=== PATIENT | male | born 1930 | race Caucasian/White ===

== ENCOUNTER 2016-08-04 14:58 | Emergency (ER) | payer MEDICARE, BC ==
[~2016-08-04] VITALS: Ht 165.1 cm; Wt 62.0 kg
[~2016-08-04 14:58] MED LIST: ALBU8I INH; APIX5TAB PO; DONE10TA14 PO; FISHCAP PO; FLUT1INH INH; LISI20 PO; METH2.5 PO; METO25CR PO; PANT20 PO; PRED20 PO; TAB-TAB PO; Z.0.OXYGENDME NC
[2016-08-04 15:02] VITALS: BP 134/76; PULSE 83; RESP 16; TEMP 98.4; O2SAT 89
[2016-08-04] MEDS ORDERED: cefTRIAXone INJ 2,000 MG in SODIUM CHLORIDE 0.9% INJ 100 ML IV STA (17:39)
[2016-08-04] MEDS ORDERED: AZITHROMYCIN INJ 500 MG in SODIUM CHLOR 0.9% 250 ML INJ 250 ML IV STA (17:39)
--- NOTE | 2016-08-04 17:46 | PD ---
HPI Chief Complaint: Respiratory Symptoms Time Seen by Provider: 17:39 Travel History International Travel<30 days: No Contact w/Intl Traveler<30days: No Traveled to known affect area: No History of Present Illness HPI 86-year-old male with history of COPD, multiple medical issues, reviewed nurse' s list past medical history, presenting today to the ER because of one week history of coughing, coughing up phlegm, and fevers of 104 yesterday, chills, increased fatigue. 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 He has been recently treated for COPD, has been using his nebulizer without improvement. He does not know any other exacerbating or alleviating factors. Modifying Factors: None Associated Signs & Symptoms: Coughing, shortness of breath, fevers and chills Risk Factors: COPD history PFSH Past Medical History Hx Anticoagulant Therapy: Yes (ELOQUIS) Arthritis: Yes (rheumatoid arthritis) Asthma: No Autoimmune Disease: No Anxiety: No Depression: No Heart Rhythm Problems: Yes Cancer: No Cardiovascular Problems: Yes (HTN) High Cholesterol: Yes Chemotherapy: No Chest Pain: No Congestive Heart Failure: No COPD: Yes Cerebrovascular Accident: Yes (TIA'S) Coronary Artery Disease: Yes Diabetes: No Diminished Hearing: No Endocrine: No GERD: No Genitourinary: No Headaches: No Hepatitis: No Hiatal Hernia: No Hypertension: Yes Immune Disorder: Yes (RHEUMATOID ARTHRITIS) Implanted Vascular Access Dvce: Yes Kidney Stones: Yes (not stones but cyst) Musculoskeletal: Yes Neurologic: No Psychiatric: No Reproductive: No Respiratory: Yes (COPD) Migraines: No Radiation Therapy: No Renal Failure: No Seizures: No Sickle Cell Disease: No Sleep Apnea: No Thyroid Disease: No Ulcer: No Past Surgical History Abdominal Surgery: Yes (HERNIA REPAIR) AICD: No Arteriovenous Shunt: No Cardiac Surgery: Yes (coronary bypass grafting 2001) Cholecystectomy: Yes Coronary Artery Bypass Graft: Yes (X5 VESSELS 2001) Ear Surgery: No Endocrine Surgery: No Eye Surgery: Yes (cataracts resection bilaterally) Genitourinary Surgery: Yes (bladder surgery, removal of renal cyst) Gynecologic Surgery: No Insulin Pump: No Joint Replacement: Yes (BILAT HIP) Oral Surgery: No Pacemaker: No Thoracic Surgery: No Other Surgery: Yes (TWO HERNIA REPAIRS) Social History Alcohol Use: Yes (OCC BEER) Tobacco Use: No Substance Use: No Allergies-Medications (Allergen,Severity, Reaction): Coded Allergies: Codeine (Verified Allergy, Severe, RASH & GI UPSET, 08/04/16) Horse Serum Proteins (Verified Allergy, Severe, 08/04/16) swelling at injection Quinine (Verified Allergy, Severe, 08/04/16) n/v Amoxicillin (Verified Allergy, Intermediate, GI UPSET, 08/04/16) Tetanus Toxoid (Verified Allergy, Intermediate, REDNESS AT INJECTION SITE , 08/04/16) Motrin (Verified Allergy, Mild, GI BLEEDING, 08/04/16) Nonsteroidal Anti-Inflammatory Agts (Verified Adverse Reaction, Intermediate, GI BLEEDING, 08/04/16) Reported Meds & Prescriptions Reported Meds & Active Scripts Active Proventil Hfa 6.7 GM Inh (Albuterol Sulfate) 90 Mcg/Act Aer 2 Puff INH Q4-6H PRN Prednisone 50 Mg Tab 50 Mg PO DAILY Zithromax Z-Timothy (Azithromycin) 250 Mg Dspk 250 Mg PO DIRECTED 500 MG (2 tabs) day 1, then 1 tab days 2-5. Oxygen (O2) (Z.0.oxygendme) Device 2 L NC CONTINUOUS Oxygen Concentrator Portable Gaseous 2 L/min via Nasal Cannula Continuous For 99 months Deltasone 20 Mg Tab (Prednisone) 20 Mg Tab 20 Mg PO DIRECTED 1 Tablet BID for 2days, 1 Tablet Daily for 2days, 1/2 Tablet for 2days Protonix (Pantoprazole Sodium) 20 Mg Tab 20 Mg PO DAILY Metoprolol Succinate ER 25 mg (Metoprolol Succinate) 25 Mg Tab 25 Mg PO DAILY Prinivil 20 mg (Lisinopril) 20 Mg Tab 20 Mg PO Q12HR Breo Ellipta 100-25 Mcg/INH (Fluticasone Furoate-Vilanterol) 1 Inh Inh 1 Puff INH DAILY Reported Ventolin Hfa (Albuterol Sulfate) 8 Gm Aero 2 Puff INH Q6 PRN * SHAKE WELL BEFORE USE * Donepezil 10 mg 10 Mg Tab 10 Mg PO DAILY Rheumatrex (Methotrexate) 2.5 Mg Tab 10 Mg PO ON MONDAYS Rheumatrex (Methotrexate) 2.5 Mg Tab 7.5 Mg PO ON THURSDAYS Fish Oi1 360 Mg PO DAILY Multivitamin (Multivitamins) 1 Tab Tab 1 Tab PO DAILY Eliquis (Apixaban) 5 Mg Tab 5 Mg PO BID Review of Systems Except as stated in HPI: all other systems reviewed are Neg Physical Exam Narrative GENERAL: Well-nourished, well-developed elderly white male patient in mild distress. Awake and oriented 3. SKIN: Warm and dry. HEAD: Normocephalic. EYES: No scleral icterus. No injection or drainage. NECK: Supple, trachea midline. CARDIOVASCULAR: Regular rate and rhythm without murmurs, gallops, or rubs. RESPIRATORY: Breath sounds equal with wheezing throughout the lung bilaterally. Mild accessory muscle use. GASTROINTESTINAL: Abdomen soft, non-tender, nondistended. MUSCULOSKELETAL: No cyanosis, or edema. BACK: Nontender without obvious deformity. No CVA tenderness. Data Data Last Documented VS Vital Signs Date Time Temp Pulse Resp B/P Pulse Ox O2 Delivery O2 Flow Rate FiO2 08/04/16 18:19 97 Nasal Cannula 4.00 08/04/16 17:37 75 22 08/04/16 15:02 98.4 134/76 Orders Electrocardiogram (08/04/16 17:34) Basic Metabolic Panel (Bmp) (08/04/16 17:34) Complete Blood Count With Diff (08/04/16 17:34) Lactic Acid Sepsis Protocol (08/04/16 17:34) Influenzae A/B Antigen (08/04/16 17:34) Blood Culture (08/04/16 17:34) Chest, Single Ap (08/04/16 17:34) Iv Access Insert/Monitor (08/04/16 17:34) Sodium Chloride 0.9% Flush (Ns Flush) (08/04/16 17:45) Ceftriaxone Inj (Rocephin Inj) (08/04/16 17:39) Azithromycin Inj (Zithromax Inj) (08/04/16 17:39) Methylprednisolone So Succ Inj (Solumedr (08/04/16 18:15) Albuterol-Ipratropium Neb (Duoneb Neb) (08/04/16 18:15) B-Type Natriuretic Peptide (08/04/16 18:05) Albuterol-Ipratropium Neb (Duoneb Neb) (08/04/16 19:00) Labs Laboratory Tests Test 08/04/16 17:45 White Blood Count 12.0 TH/MM3 Red Blood Count 3.75 MIL/MM3 Hemoglobin 13.0 GM/DL Hematocrit 39.0 % Mean Corpuscular Volume 104.0 FL Mean Corpuscular Hemoglobin 34.6 PG Mean Corpuscular Hemoglobin 33.3 % Concent Red Cell Distribution Width 18.7 % Platelet Count 187 TH/MM3 Mean Platelet Volume 8.2 FL Neutrophils (%) (Auto) 82.7 % Lymphocytes (%) (Auto) 4.7 % Monocytes (%) (Auto) 11.2 % Eosinophils (%) (Auto) 1.1 % Basophils (%) (Auto) 0.3 % Neutrophils # (Auto) 9.9 TH/MM3 Lymphocytes # (Auto) 0.6 TH/MM3 Monocytes # (Auto) 1.3 TH/MM3 Eosinophils # (Auto) 0.1 TH/MM3 Basophils # (Auto) 0.0 TH/MM3 CBC Comment DIFF FINAL Differential Comment Sodium Level 136 MEQ/L Potassium Level 4.1 MEQ/L Chloride Level 100 MEQ/L Carbon Dioxide Level 28.5 MEQ/L Anion Gap 8 MEQ/L Blood Urea Nitrogen 16 MG/DL Creatinine 1.15 MG/DL Estimat Glomerular Filtration 60 ML/MIN Rate Random Glucose 100 MG/DL Lactic Acid Level 1.4 mmol/L Calcium Level 9.0 MG/DL MDM Medical Decision Making Medical Screen Exam Complete: Yes Emergency Medical Condition: Yes Medical Record Reviewed: Yes Interpretation(s) EKG shows A. fib at a rate of 70 bpm with no signs of acute ST-T changes. Laboratory Tests Test 08/04/16 17:45 White Blood Count 12.0 TH/MM3 (4.0-11.0) Red Blood Count 3.75 MIL/MM3 (4.50-5.90) Mean Corpuscular Volume 104.0 FL (80.0-100.0) Mean Corpuscular Hemoglobin 34.6 PG (27.0-34.0) Red Cell Distribution Width 18.7 % (11.6-17.2) Neutrophils (%) (Auto) 82.7 % (16.0-70.0) Lymphocytes (%) (Auto) 4.7 % (9.0-44.0) Monocytes (%) (Auto) 11.2 % (0.0-8.0) Neutrophils # (Auto) 9.9 TH/MM3 (1.8-7.7) Lymphocytes # (Auto) 0.6 TH/MM3 (1.0-4.8) Monocytes # (Auto) 1.3 TH/MM3 (0-0.9) Estimat Glomerular Filtration 60 ML/MIN (>89) Rate Last 24 hours Impressions Chest X-Ray 08/04/16 1974 Signed Impressions: Service Date/Time: Thursday, August 04, 2016 15:51 - CONCLUSION: 1. Pulmonary fibrosis is similar in appearance to October 2015. No new infiltrate or effusion. Postoperative CABG. Jacky García MD Differential Diagnosis Coughing, wheezing, shortness of breath, fevers and chillspneumonia versus bronchitis versus COPD exacerbation Narrative Course Chest x-ray did not reveal any signs of acute pulmonary infiltrates or signs of pneumonia. He does have pulmonary fibrosis. Patient was given antibiotics IV after cultures were drawn considering the story. Solu-Medrol and nebulizers were given in the ER. On reevaluation at 6:50 PM, he is feeling much improved. At this point, I had talked to him regarding findings and have offered to admit the patient for his worsening of COPD and he states that he feels better that he would rather go home and follow-up with Dr. Haley. At this point, my plan would be to release him with follow-up to his picking supervisor. We will give him antibiotics by mouth as well. Further treatment for COPD exacerbation will be given. Return for any worsening in symptoms. The plan has been discussed with patient and the risk of possible worsening in condition during outpatient therapy has been discussed with the patient and he states understanding. Diagnosis Primary Impression: COPD exacerbation Med/Other Pt SpecificInfo: Prescription(s) given Scripts Albuterol 6.7 GM Inh (Proventil Hfa 6.7 GM Inh)90 Mcg/Act Aer2 Puff INH Q4-6H PRN (SHORTNESS OF BREATH) #1 INHALER Ref 0 Prov:Chris Greene MD 08/04/16 Prednisone 50 Mg Tab50 Mg PO DAILY #5 TAB Ref 0 Prov:Chris Greene MD 08/04/16 Azithromycin (Zithromax Z-Timothy)250 Mg [id number] Mg PO DIRECTED #1 DSPK Ref 0 500 MG (2 tabs) day 1, then 1 tab days 2-5. Prov:Soonthromithai,Rewadee MD 08/04/16 Disposition: 01 DISCHARGE HOME Condition: Stable Chris Greene MD Aug 04, 2016 17:46
[2016-08-04] MEDS ORDERED: methylPREDNISolone SOD SUCC 125 MG/2 ML VIAL IV PUSH ONE (18:15)
--- NOTE | 2016-08-04 18:18 | RADRPT ---
EXAM DATE/TIME: 08/04/2016 15:51 [facility] COMPARISON: CHEST SINGLE AP, November 15, 2015, 6:49. INDICATIONS : Shortness of breath. MEDICAL HISTORY : Hypertension. Hypercholesterolemia. Rheumatoid arthritis. TIA,, CAD, Irregular heartbeat, COPD, O steoporosis SURGICAL HISTORY : CABG. Cholecystectomy. Kyphoplasty. Hernia repair, Bilateral hip replacements ENCOUNTER: Initial ACUITY: 1 day PAIN SCORE: 0/10 LOCATION: Bilateral chest FINDINGS: A single view of the chest demonstrates pulmonary fibrosis. No focal consolidation. No effusion. No p neumothorax. Postop CABG. Heart size within normal limits. CONCLUSION: 1. Pulmonary fibrosis is similar in appearance to October 2015. No new infiltrate or effusion. Postoperat sherine CABG. Jacky García MD on August 04, 2016 at 18:14 Board Certified Radiologist. This report was verified electronically.
[2016-08-04 18:19] VITALS: O2SAT 97
[2016-08-04 18:19] LABS: AUTOMATED NEUTROPHIL # 9.9 TH/MM3 (1.8-7.7); BASOPHIL % 0.3 % (0.0-2.0); EOSINOPHIL # 0.1 TH/MM3 (0-0.4); EOSINOPHIL % 1.1 % (0.0-4.0); HEMO FLAGS DIFF FINAL; LYMPH % 4.7 % (9.0-44.0); LYMPHOCYTE # 0.6 TH/MM3 (1.0-4.8); MEAN CORPUSCULAR HEMOGLOBIN 34.6 PG (27.0-34.0); MEAN CORPUSCULAR HGB CONC 33.3 % (32.0-36.0); MONO % 11.2 % (0.0-8.0); NEUT % 82.7 % (16.0-70.0); PLATELET COUNT 187 TH/MM3 (150-450); RED BLOOD COUNT 3.75 MIL/MM3 (4.50-5.90); RED CELL DISTRIBUTION WIDTH 18.7 % (11.6-17.2)
[2016-08-04] MEDS: RESP: ALBUTEROL 2.5 MG/IPRATROPIUM 0.5 MG NEB (SCH) INH ×3 (18:19→19:40)
[2016-08-04 18:51] LABS: BICARBONATE 28.5 MEQ/L (21.0-32.0); POTASSIUM 4.1 MEQ/L (3.5-5.1)
[2016-08-04] MEDS ORDERED: ZITHTAB PO (19:03)
[2016-08-04] MEDS ORDERED: ALBU6.7H INH (19:03)
[2016-08-04] MEDS ORDERED: PRED50 PO (19:03)
[2016-08-04] MEDS: SODIUM CHLORIDE 0.9% FLUSH 5 ML FLUSH IVF PRN ×2 (19:27→20:47)
[2016-08-04] MEDS ORDERED: FUROSEMIDE 20 MG/2 ML VIAL IV PUSH ONE (20:30)
[2016-08-04 20:46] VITALS: BP 141/72; TEMP 98.3
--- NOTE | 2016-08-05 22:32 | EKG ---
Date Performed: 08/04/2016 Time Performed: 18:29:25 PTAGE: 86 years EKG: ATRIAL FIBRILLATION MODERATE INTRAVENTRICULAR CONDUCTION DELAY NONSPECIFIC ST & T-WAVE ABNO RMALITY ABNORMAL ECG PREVIOUS TRACING : 11/12/2015 14.02 Compared to the previous tracing, previously afib with [facility] DOCTOR: Abdi Dacosta Interpretating Date/Time 08/05/2016 22:31:14
[2016-10-11] MEDS ORDERED: OXYGEN INH (10:21)
== END 2016-08-04 20:49 | disposition home or self-care (01) ==
LOC: NEPC 14:58
DX: J44.1 Chronic obstructive pulmonary disease with (acute) exacerbation (principal); I10 Essential (primary) hypertension; E78.00 Pure hypercholesterolemia, unspecified; I25.10 Atherosclerotic heart disease of native coronary artery without angina pectoris; R50.9 Fever, unspecified; R06.02 Shortness of breath; Z79.01 Long term (current) use of anticoagulants; Z86.73 Personal history of transient ischemic attack (TIA), and cerebral infarction without residual deficits
CPT/HCPCS: 71010; 80048; 83605; 83880; 85025; 87040; 87804; 93005; 94640; 94664; 96365; 96366; 96367; 96375; 99284; J0456; J0696; J1940; J2930; J7050

== ENCOUNTER 2016-08-10 10:56 | Emergency (ER) | payer MEDICARE, BC ==
[~2016-08-10] VITALS: Ht 165.1 cm; Wt 65.0 kg
[~2016-08-10 10:56] MED LIST changes: +ALBU6.7H INH; +PRED50 PO; +ZITHTAB PO
[2016-08-10 10:58] VITALS: BP 175/90; PULSE 59; RESP 14; TEMP 98.4; O2SAT 93
--- NOTE | 2016-08-10 11:27 | PD ---
HPI Chief Complaint: Laceration/Skin Injury Time Seen by Provider: 11:23 Travel History International Travel<30 days: No Contact w/Intl Traveler<30days: No Traveled to known affect area: No History of Present Illness HPI Patient is an 86-year-old male presenting to the emergency department for evaluation of laceration to his right forearm. Patient states he was putting on his shoes this morning when he fell forward cutting his arm on oxygen tanks that were near his bed. Patient denies any dizziness, chest pain, shortness of breath prior to the fall. He denies any head injury or loss of consciousness after the fall. Patient currently is on blood thinners for a previous stroke. Specifically he is on Eliquis. Patient states his tetanus vaccine is up-to- date within the last 5 years. He reports his pain as a 3 out of 10 and describes it as sore. PFSH Past Medical History Hx Anticoagulant Therapy: Yes Arthritis: Yes (rheumatoid arthritis) Asthma: No Autoimmune Disease: No Anxiety: No Depression: No Heart Rhythm Problems: Yes Cancer: No Cardiovascular Problems: Yes (HTN) High Cholesterol: Yes Chemotherapy: No Chest Pain: No Congestive Heart Failure: No COPD: Yes Cerebrovascular Accident: Yes (TIA'S) Coronary Artery Disease: Yes Diabetes: No Diminished Hearing: No Endocrine: No GERD: No Genitourinary: No Headaches: No Hepatitis: No Hiatal Hernia: No Hypertension: Yes Immune Disorder: Yes (RHEUMATOID ARTHRITIS) Implanted Vascular Access Dvce: Yes Kidney Stones: Yes (not stones but cyst) Musculoskeletal: Yes Neurologic: No Psychiatric: No Reproductive: No Respiratory: Yes (COPD) Migraines: No Radiation Therapy: No Renal Failure: No Seizures: No Sickle Cell Disease: No Sleep Apnea: No Thyroid Disease: No Ulcer: No Past Surgical History Abdominal Surgery: Yes (HERNIA REPAIR) AICD: No Arteriovenous Shunt: No Cardiac Surgery: Yes (coronary bypass grafting 2001) Cholecystectomy: Yes Coronary Artery Bypass Graft: Yes (X5 VESSELS 2001) Ear Surgery: No Endocrine Surgery: No Eye Surgery: Yes (cataracts resection bilaterally) Genitourinary Surgery: Yes (bladder surgery, removal of renal cyst) Gynecologic Surgery: No Insulin Pump: No Joint Replacement: Yes (BILAT HIP) Oral Surgery: No Pacemaker: No Thoracic Surgery: No Other Surgery: Yes (TWO HERNIA REPAIRS) Social History Alcohol Use: Yes (OCC BEER) Tobacco Use: No Substance Use: No Allergies-Medications (Allergen,Severity, Reaction): Coded Allergies: Codeine (Verified Allergy, Severe, RASH & GI UPSET, 08/04/16) Horse Serum Proteins (Verified Allergy, Severe, 08/04/16) swelling at injection Quinine (Verified Allergy, Severe, 08/04/16) n/v Amoxicillin (Verified Allergy, Intermediate, GI UPSET, 08/04/16) Tetanus Toxoid (Verified Allergy, Intermediate, REDNESS AT INJECTION SITE , 08/04/16) Motrin (Verified Allergy, Mild, GI BLEEDING, 08/04/16) Nonsteroidal Anti-Inflammatory Agts (Verified Adverse Reaction, Intermediate, GI BLEEDING, 08/04/16) Reported Meds & Prescriptions Reported Meds & Active Scripts Active Proventil Hfa 6.7 GM Inh (Albuterol Sulfate) 90 Mcg/Act Aer 2 Puff INH Q4-6H PRN Prednisone 50 Mg Tab 50 Mg PO DAILY Zithromax Z-Timothy (Azithromycin) 250 Mg Dspk 250 Mg PO DIRECTED 500 MG (2 tabs) day 1, then 1 tab days 2-5. Reported Albuterol Neb (Albuterol Sulfate) 2.5 Mg/3 Ml Neb 2.5 Mg NEB Q4HR [Fish Oil 360MG] 360 Mg PO BID Multi Vitamin (Multiple Vitamin) 1 Tab Tab 1 Tab PO DAILY Vitamin D3 (Cholecalciferol) 2,000 Unit Tab 2,000 Units PO DAILY Vitamin B12 (Cyanocobalamin) Unknown Strength Tab 1 Tab PO DAILY Symbicort Inh (Budesonide/Formoterol Fumarate) Unknown Strength Aero 1 Puff INH DAILY Lisinopril 20 Mg Tab 20 Mg PO BID Methotrexate 2.5 Mg Tab 2.5 Mg PO MOTH Take 4 tablets (10mg) on Mondays and take 3 tablets (7.5mg) on Lasix (Furosemide) 40 Mg Tab 40 Mg PO DAILY Metoprolol Tartrate 100 Mg Tab 50 Mg PO DAILY Donepezil 10 Mg Tab 10 Mg PO HS Eliquis (Apixaban) 5 Mg Tab 5 Mg PO BID Folic Acid 5 Mg Cap 5 Mg PO BID Review of Systems Except as stated in HPI: all other systems reviewed are Neg HENT: No: Headaches Cardiovascular: No: Chest Pain or Discomfort Respiratory: No: Shortness of Breath Gastrointestinal: No: Nausea, Abdominal Pain Skin: Positive Other (laceration, skin tears to right forearm) Physical Exam Narrative GENERAL: Alert, well-developed, well-nourished, elderly male. Resting comfortably in no acute distress. SKIN: Warm and dry. Laceration, skin tears noted to right forearm on the volar aspect. Positive radial pulse, brisk less than 3 second capillary refill. HEAD: Atraumatic. Normocephalic. EYES: Pupils equal and round. No scleral icterus. No injection or drainage. ENT: No nasal bleeding or discharge. Mucous membranes pink and moist. NECK: Trachea midline. No JVD. CARDIOVASCULAR: Regular rate and rhythm. No murmur appreciated. RESPIRATORY: No accessory muscle use. Clear to auscultation. Breath sounds equal bilaterally. GASTROINTESTINAL: Abdomen soft, non-tender, nondistended. Hepatic and splenic margins not palpable. MUSCULOSKELETAL: No obvious deformities. No clubbing. No cyanosis. No edema. 5/5 muscle strength in bilateral upper extremities. NEUROLOGICAL: Awake and alert. No obvious cranial nerve deficits. Motor grossly within normal limits. Normal speech. PSYCHIATRIC: Appropriate mood and affect; insight and judgment normal. Data Data Last Documented VS Vital Signs Date Time Temp Pulse Resp B/P Pulse Ox O2 Delivery O2 Flow Rate FiO2 08/10/16 15:10 78 17 138/78 95 08/10/16 10:[address] Brain W/O Iv Contrast(Rout) (08/10/16 ) Act Partial Throm Time (Ptt) (08/10/16 11:22) Prothrombin Time / Inr (Pt) (08/10/16 11:22) Lidocai-Epi 1%-1:100,000 Inj (Xylocaine- (08/10/16 12:15) Oxycodone-Acetamin 5-325 Mg (Percocet (08/10/16 13:15) Labs Laboratory Tests Test 08/10/16 12:05 Prothrombin Time 12.1 SEC Prothromb Time International 1.1 RATIO Ratio Activated Partial 27.4 SEC Thromboplast Time MDM Medical Decision Making Medical Screen Exam Complete: Yes Emergency Medical Condition: Yes Interpretation(s) Vital Signs Date Time Temp Pulse Resp B/P Pulse Ox O2 Delivery O2 Flow Rate FiO2 08/10/16 10:58 98.4 59 14 175/90 93 Room Air Differential Diagnosis Hemorrhage versus TIA versus skin tears versus laceration versus contusion versus other Narrative Course Patient is an 86-year-old male presenting to emergency for evaluation of skin tears, lacerations to his right forearm after falling forward while putting his shoes on this morning. He denies any head injury or loss of consciousness. Patient appears neurologically intact. CT of the brain and coags ordered and pending. Wound was assessed, saline soaked with normal saline apply to skin tears and wrapped with sterile gauze. Care of patient will be transferred to provider when bed is available. Toyin Trivedi Aug 10, 2016 11:27
--- NOTE | 2016-08-10 12:09 | PD ---
Physical Exam Date Seen by Provider: Aug 10, 2016 Time Seen by Provider: 12:08 Data Data Last Documented VS Vital Signs Date Time Temp Pulse Resp B/P Pulse Ox O2 Delivery O2 Flow Rate FiO2 08/10/16 12:09 17 08/10/16 10:58 98.4 59 175/[address] Brain W/O Iv Contrast(Rout) (08/10/16 ) Act Partial Throm Time (Ptt) (08/10/16 11:22) Prothrombin Time / Inr (Pt) (08/10/16 11:22) Lidocai-Epi 1%-1:100,000 Inj (Xylocaine- (08/10/16 12:15) Labs Laboratory Tests Test 08/10/16 12:05 Prothrombin Time 12.1 SEC Prothromb Time International 1.1 RATIO Ratio Activated Partial 27.4 SEC Thromboplast Time MDM Supervised Visit with GIUSEPPE: No Narrative Course I was asked by Dr. Johns to evaluate this patient's lacerations. Please see her note for full details of this patient's visit. On my exam the patient is alert and oriented, multiple skin tears and a single laceration of the right upper extremity. The laceration is on the distal anterior aspect of the right forearm, approximately 14 cm in length. Laceration repair was performed. Please see my procedure note for details. Dr. Johns retains care of this patient. Please see her note for disposition. Procedures Procedure Narrative LACERATION LOCATION: Distal anterior right forearm LENGTH: 14 cm NUMBER OF STITCHES/CINDY: 17 REPAIR: The area of the laceration was prepped with Betadine and sterilely draped. The laceration was infiltrated with 1% lidocaine with epinephrine. The wound was copiously irrigated and explored without evidence of foreign body, tendon injury or neurovascular injury. The wound was closed using 4-0 Prolene. This was a single layer repair. There were also several superficial skin tears that were irrigated and closed with Steri-Strips and benzoin. A sterile dressing was applied. The patient was advised to keep the dressing clean and dry. Patient tolerated the procedure well. Thalia Rodriguez Aug 10, 2016 12:09
[2016-08-10] MEDS ORDERED: LIDOCAINE 1%/EPINEPHrine 1:100,000 SOLN 20 ML VIAL INFIL ONE (12:15)
--- NOTE | 2016-08-10 12:19 | RADRPT ---
EXAM DATE/TIME: 08/10/2016 11:50 [facility] COMPARISON: CT BRAIN W/O CONTRAST, May 30, 2014, 16:56. INDICATIONS : Dizziness; fall. RADIATION DOSE: 56.35 CTDIvol (mGy) MEDICAL HISTORY : Stroke. Hypertension. Cardiovascular disease SURGICAL HISTORY : Cholecystectomy. ENCOUNTER: Initial ACUITY: 1 day PAIN SCALE: 0/10 LOCATION: cranial TECHNIQUE: Multiple contiguous axial images were obtained of the head. Using automated exposure control and adj ustment of the mA and/or kV according to patient size, radiation dose was kept as low as reasonably a chievable to obtain optimal diagnostic quality images. FINDINGS: CEREBRUM: The ventricles are normal for age. No evidence of midline shift, mass lesion, hemorrhage or acute in farction. No extra-axial fluid collections are seen. POSTERIOR FOSSA: The cerebellum and brainstem are intact. The 4th ventricle is midline. The cerebellopontine angle i s unremarkable. EXTRACRANIAL: The visualized portion of the orbits is intact. SKULL: The calvaria is intact. No evidence of skull fracture. CONCLUSION: Negative exam for age. Juan Melgar MD on August 10, 2016 at 12:16 Board Certified Radiologist. This report was verified electronically.
[2016-08-10 12:36] LABS: APTT (PATIENT) 27.4 SEC (24.3-30.1); INTERNATIONAL NORMALIZED RATIO 1.1 RATIO; PROTHROMBIN TIME - PATIENT 12.1 SEC (9.8-11.6)
--- NOTE | 2016-08-10 12:43 | PD ---
Data Data Last Documented VS Vital Signs Date Time Temp Pulse Resp B/P Pulse Ox O2 Delivery O2 Flow Rate FiO2 08/10/16 12:09 17 08/10/16 10:58 98.4 59 175/[address] Brain W/O Iv Contrast(Rout) (08/10/16 ) Act Partial Throm Time (Ptt) (08/10/16 11:22) Prothrombin Time / Inr (Pt) (08/10/16 11:22) Lidocai-Epi 1%-1:100,000 Inj (Xylocaine- (08/10/16 12:15) Oxycodone-Acetamin 5-325 Mg (Percocet (08/10/16 13:15) Labs Laboratory Tests Test 08/10/16 12:05 Prothrombin Time 12.1 SEC Prothromb Time International 1.1 RATIO Ratio Activated Partial 27.4 SEC Thromboplast Time MDM Medical Record Reviewed: Yes Supervised Visit with GIUSEPPE: Yes Interpretation(s) Last Impressions Head CT 08/10/16 0000 Signed Impressions: Service Date/Time: Wednesday, August 10, 2016 11:50 - CONCLUSION: Negative exam for age. Juan Melgar MD Differential Diagnosis Right arm abrasion, right arm laceration Narrative Course Patient is an 86-year-old male who presents to emergency room with complaints of right arm laceration. Patient reports that he was putting on his shoes this morning when he fell forward and hit his right arm on oxygen tanks. Patient reports that he did not suffer any trauma to his head or neck, no loss of consciousness. Reports that he is on anticoagulants (Eliquis) for history of strokes in the past. Patient denies headache or dizziness at this time. Patient reports only complaint of right arm pain secondary to lacerations. Patient reports that his tetanus is up-to-date. On exam, patient is pleasant, alert and oriented 3. Patient with multiple skin avulsions as well as laceration to right forearm which will require suture repair. Thalia MILLER will suture lacerations. Patient will follow up with pcp in 48 hours for wound check. I do not believe that patient is a TIA versus a CVA as patient with a mechanical fall as he was attempting to put on his shoes this morning. CT of the head was ordered, no acute abnormalities and CT. Patient alert and oriented 3 with no complaints and no headaches or dizziness. Plan to discharge patient once lacerations are sutured. Diagnosis Primary Impression: Fall Qualified Code: W19.XXXA - Fall, initial encounter Additional Impressions: Laceration of arm, right, multiple sites Qualified Code: S41.111A - Laceration of arm, right, multiple sites, initial encounter Skin avulsion Patient Instructions: General Instructions Additional Instruction: Please follow-up with your primary care doctor tomorrow as scheduled Return to the emergency room as needed Wound check in 48 hours Suture removal and 7-10 days Please return to the emergency room should he develop any signs of infection Apply bacitracin to wound and keep area clean and covered Med/Other Pt SpecificInfo: Prescription(s) given Disposition: DISCHARGE HOME Condition: Stable Susi Johns DO Aug 10, 2016 12:43
[2016-08-10] MEDS ORDERED: SYMB80AE INH (12:51)
[2016-08-10] MEDS ORDERED: VITA100T15 PO (12:51)
[2016-08-10] MEDS ORDERED: ALBU0.08 NEB (12:51)
[2016-08-10] MEDS ORDERED: METO100T PO (12:51)
[2016-08-10] MEDS ORDERED: DONE10TA7 PO (12:51)
[2016-08-10] MEDS ORDERED: MULT-135 PO (12:51)
[2016-08-10] MEDS ORDERED: LISI-515 PO (12:51)
[2016-08-10] MEDS ORDERED: VITA200012 PO (12:51)
[2016-08-10] MEDS ORDERED: FURO1TAB60 PO (12:51)
[2016-08-10] MEDS ORDERED: FOLI5CAP PO (12:51)
[2016-08-10] MEDS ORDERED: METH2.5T PO (12:51)
[2016-08-10] MEDS ORDERED: FISH OIL 360MG PO (12:51)
[2016-08-10] MEDS ORDERED: APIX5TAB PO (12:51)
[2016-08-10] MEDS ORDERED: oxyCODONE/ACETAMINOPHEN 5 MG/325 MG TAB PO ONE (13:15)
--- NOTE | 2016-08-10 13:54 | HHI.FF ---
Face to Face Verification Diagnosis: (1) Laceration of arm, right, multiple sites (2) Skin avulsion Home Health Nursing Order: Wound care and dressing changes Instructions: zeroform and gauze to area of laceration - dressing change twice a day I have seen patient Richard Joe on 08/10/16. My clinical findings support the need for the requested home health care services because: Limited ability to care for self I certify that my clinical findings support that this patient is homebound because: Unsteady gait/balance Susi Johns DO Aug 10, 2016 13:54
[2016-08-10 15:10] VITALS: BP 138/78
[2016-10-11] MEDS ORDERED: OXYGEN INH (10:21)
== END 2016-08-10 15:11 | disposition home or self-care (01) ==
LOC: NEPC 10:56
DX: S51.811A Laceration without foreign body of right forearm, initial encounter (principal); I10 Essential (primary) hypertension; E78.00 Pure hypercholesterolemia, unspecified; J44.9 Chronic obstructive pulmonary disease, unspecified; I25.10 Atherosclerotic heart disease of native coronary artery without angina pectoris; Z86.73 Personal history of transient ischemic attack (TIA), and cerebral infarction without residual deficits; Z79.01 Long term (current) use of anticoagulants; W19.XXXA Unspecified fall, initial encounter; Y92.003 Bedroom of unspecified non-institutional (private) residence as the place of occurrence of the external cause; Y99.8 Other external cause status
CPT/HCPCS: 12005; 70450; 85610; 85730

== ENCOUNTER 2016-10-11 10:03 | Inpatient (IN) | payer MEDICARE, BC ==
[2016-10-11] VITALS (8 sets, daily range): BP systolic 130–171; BP diastolic 76–88; PULSE 81–124; RESP 18–30; TEMP 97.6–98.7; O2SAT 88–97
[~2016-10-11] VITALS: Ht 165.1 cm; Wt 64.0 kg
[~2016-10-11 10:03] MED LIST changes: +ALBU0.08 NEB; -ALBU8I INH; -DONE10TA14 PO; +DONE10TA7 PO; +FISH OIL 360MG PO; -FISHCAP PO; -FLUT1INH INH; +FOLI5CAP PO; +FURO1TAB60 PO; +LISI-515 PO; -LISI20 PO; -METH2.5 PO; +METH2.5T PO; +METO100T PO; -METO25CR PO; +MULT-135 PO; -PANT20 PO; -PRED20 PO; +SYMB80AE INH; -TAB-TAB PO; +VITA100T15 PO; +VITA200012 PO; -Z.0.OXYGENDME NC
[2016-10-11] MEDS ORDERED: OXYGEN INH ×2 (10:21)
--- NOTE | 2016-10-11 10:23 | PD ---
HPI Chief Complaint: Respiratory Symptoms Time Seen by Provider: 10:11 Travel History International Travel<30 days: No Contact w/Intl Traveler<30days: No Traveled to known affect area: No History of Present Illness HPI 86-year-old male with a history of COPD on oxygen 20 474 L arrives with shortness of breath for 2 days. Nebulizers every 6 hours at home are initially helpful however less so overnight and this morning. A subjective fever is reported as well as chills. A white phlegm is produced with coughing spells. He reports a right-sided and lower chest pain with some nausea. He follows at the [facility]. Managing Supervisor is Dr. Ponce pulmonology is Dr. Salazar. the patient's states often he during spells of COPD requires hospital visit for serial nebulizer treatments which tend to help. PFSH Past Medical History Hx Anticoagulant Therapy: Yes Arthritis: Yes (rheumatoid arthritis) Asthma: No Autoimmune Disease: No Anxiety: No Depression: No Heart Rhythm Problems: Yes Cancer: No Cardiovascular Problems: Yes (HTN) High Cholesterol: Yes Chemotherapy: No Chest Pain: No Congestive Heart Failure: No COPD: Yes Cerebrovascular Accident: Yes (TIA'S) Coronary Artery Disease: Yes Diabetes: No Diminished Hearing: No Endocrine: No GERD: No Genitourinary: No Headaches: No Hepatitis: No Hiatal Hernia: No Hypertension: Yes Immune Disorder: Yes (RHEUMATOID ARTHRITIS) Implanted Vascular Access Dvce: Yes Kidney Stones: Yes (not stones but cyst) Musculoskeletal: Yes Neurologic: No Psychiatric: No Reproductive: No Respiratory: Yes (COPD ) Migraines: No Radiation Therapy: No Renal Failure: No Seizures: No Sickle Cell Disease: No Sleep Apnea: No Thyroid Disease: No Ulcer: No Past Surgical History Abdominal Surgery: Yes (HERNIA REPAIR) AICD: No Arteriovenous Shunt: No Cardiac Surgery: Yes (coronary bypass grafting 2001) Cholecystectomy: Yes Coronary Artery Bypass Graft: Yes (X5 VESSELS 2001) Ear Surgery: No Endocrine Surgery: No Eye Surgery: Yes (cataracts resection bilaterally) Genitourinary Surgery: Yes (bladder surgery, removal of renal cyst) Gynecologic Surgery: No Insulin Pump: No Joint Replacement: Yes (BILAT HIP) Oral Surgery: No Pacemaker: No Thoracic Surgery: No Other Surgery: Yes (TWO HERNIA REPAIRS) Social History Alcohol Use: Yes (OCC BEER) Tobacco Use: No Substance Use: No Allergies-Medications (Allergen,Severity, Reaction): Coded Allergies: Codeine (Verified Allergy, Severe, RASH & GI UPSET, 10/11/16) Horse Serum Proteins (Verified Allergy, Severe, 10/11/16) swelling at injection Quinine (Verified Allergy, Severe, 10/11/16) n/v Amoxicillin (Verified Allergy, Intermediate, GI UPSET, 10/11/16) Tetanus Toxoid (Verified Allergy, Intermediate, REDNESS AT INJECTION SITE , 10/11/16) Motrin (Verified Allergy, Mild, GI BLEEDING, 10/11/16) Nonsteroidal Anti-Inflammatory Agts (Verified Adverse Reaction, Intermediate, GI BLEEDING, 10/11/16) Reported Meds & Prescriptions Reported Meds & Active Scripts Active Proventil Hfa 6.7 GM Inh (Albuterol Sulfate) 90 Mcg/Act Aer 2 Puff INH Q4-6H PRN Reported [Oxygen] 4 Liter INH DAILY Albuterol Neb (Albuterol Sulfate) 2.5 Mg/3 Ml Neb 2.5 Mg NEB Q4HR [Fish Oil 360MG] 360 Mg PO BID Multi Vitamin (Multiple Vitamin) 1 Tab Tab 1 Tab PO DAILY Vitamin D3 (Cholecalciferol) 2,000 Unit Tab 2,000 Units PO DAILY Vitamin B12 (Cyanocobalamin) Unknown Strength Tab 1 Tab PO DAILY Symbicort Inh (Budesonide/Formoterol Fumarate) Unknown Strength Aero 1 Puff INH DAILY Lisinopril 20 Mg Tab 20 Mg PO BID Methotrexate 2.5 Mg Tab 2.5 Mg PO MOTH Take 4 tablets (10mg) on Mondays and take 3 tablets (7.5mg) on Lasix (Furosemide) 40 Mg Tab 40 Mg PO DAILY Metoprolol Tartrate 100 Mg Tab 50 Mg PO DAILY Donepezil 10 Mg Tab 10 Mg PO HS Eliquis (Apixaban) 5 Mg Tab 5 Mg PO BID Folic Acid 5 Mg Cap 5 Mg PO BID Review of Systems Except as stated in HPI: all other systems reviewed are Neg General / Constitutional: Positive: Fever, Chills Cardiovascular: Positive: Chest Pain or Discomfort Respiratory: Positive: Cough, Shortness of Breath, Wheezing Gastrointestinal: Positive: Nausea Physical Exam Narrative GENERAL: 86 yo M, elderly, thin, answers questions in short prases SKIN: Warm and dry. White bandaging on the face. HEAD: Atraumatic. Normocephalic. EYES: Pupils equal and round. No scleral icterus. No injection or drainage. ENT: No nasal bleeding or discharge. Mucous membranes pink and moist. NECK: Trachea midline. No JVD. CARDIOVASCULAR: Irregular. Slightly tachycardic at about 110. RESPIRATORY: Minimal tachypnea. Wheezing present bilaterally. GASTROINTESTINAL: Umbilical hernia present easily reducible. Soft. Generalized nonspecific tenderness. MUSCULOSKELETAL: Extremities without clubbing, cyanosis, or edema. No obvious deformities. NEUROLOGICAL: Awake and alert. No obvious cranial nerve deficits. Motor grossly within normal limits. Answers questions appropriately. PSYCHIATRIC: Appropriate mood and affect; insight and judgment normal. Data Data Last Documented VS Vital Signs Date Time Temp Pulse Resp B/P Pulse Ox O2 Delivery O2 Flow Rate FiO2 10/11/16 10:10 103 28 89 Nasal Cannula 4 10/11/16 10:05 97.6 171/88 Vital signs reviewed Orders Complete Blood Count With Diff (10/11/16 10:16) Basic Metabolic Panel (Bmp) (10/11/16 10:16) B-Type Natriuretic Peptide (10/11/16 10:16) Magnesium (Mg) (10/11/16 10:16) Troponin I (10/11/16 10:16) Iv Access Insert/Monitor (10/11/16 10:16) Electrocardiogram (10/11/16 10:16) Ecg Monitoring (10/11/16 10:16) Oximetry (10/11/16 10:16) Oxygen Administration (10/11/16 10:16) Chest, Single Ap (10/11/16 10:16) Sodium Chloride 0.9% Flush (Ns Flush) (10/11/16 10:30) Methylprednisolone So Succ Inj (Solumedr (10/11/16 10:30) Albuterol-Ipratropium Neb (Duoneb Neb) (10/11/16 10:30) Nitroglycerin Sl (Nitrostat Sl) (10/11/16 11:30) Furosemide Inj (Lasix Inj) (10/11/16 11:30) Labs Laboratory Tests Test 10/11/16 10:25 White Blood Count 7.4 TH/MM3 Red Blood Count 3.29 MIL/MM3 Hemoglobin 11.9 GM/DL Hematocrit 34.6 % Mean Corpuscular Volume 105.2 FL Mean Corpuscular Hemoglobin 36.2 PG Mean Corpuscular Hemoglobin 34.4 % Concent Red Cell Distribution Width 21.8 % Platelet Count 216 TH/MM3 Mean Platelet Volume 8.0 FL Neutrophils (%) (Auto) 83.9 % Lymphocytes (%) (Auto) 2.5 % Monocytes (%) (Auto) 12.3 % Eosinophils (%) (Auto) 0.5 % Basophils (%) (Auto) 0.8 % Neutrophils # (Auto) 6.2 TH/MM3 Lymphocytes # (Auto) 0.2 TH/MM3 Monocytes # (Auto) 0.9 TH/MM3 Eosinophils # (Auto) 0.0 TH/MM3 Basophils # (Auto) 0.1 TH/MM3 CBC Comment DIFF FINAL Differential Comment Sodium Level 137 MEQ/L Potassium Level 3.8 MEQ/L Chloride Level 103 MEQ/L Carbon Dioxide Level 27.0 MEQ/L Anion Gap 7 MEQ/L Blood Urea Nitrogen 14 MG/DL Creatinine 1.18 MG/DL Estimat Glomerular Filtration 59 ML/MIN Rate Random Glucose 100 MG/DL Calcium Level 9.2 MG/DL Magnesium Level 1.9 MG/DL Troponin I 0.04 NG/ML B-Type Natriuretic Peptide 805 PG/ML MDM Medical Decision Making Medical Screen Exam Complete: Yes Emergency Medical Condition: Yes Medical Record Reviewed: Yes Differential Diagnosis COPD, asthma, pneumonia, pleural effusion, coronary artery disease, CHF, PE among other considerations all considered much less likely Narrative Course CBC & BMP Diagram 10/11/16 10:25 Tn 0.04 EKG reveals atrial fibrillation with a rate of about 107 BNP 805 Last 24 hours Impressions Chest X-Ray 10/11/16 1016 Signed Impressions: Service Date/Time: Tuesday, October 11, 2016 10:33 - CONCLUSION: Slight pulmonary edema. Yao Perez MD Patient has received breathing treatments and Solu-Medrol. His BNP is 805 with pulmonary edema on the chest x-ray. 60 mg IV Lasix given as well as sublingual nitroglycerin. The patient will be admitted to the family medicine residency service. Diagnosis Primary Impression: COPD (chronic obstructive pulmonary disease) Qualified Code: J44.9 - Chronic obstructive pulmonary disease, unspecified COPD type Additional Impression: CHF (congestive heart failure) Qualified Code: I50.9 - Congestive heart failure, unspecified congestive heart failure chronicity, unspecified congestive heart failure type Admitting Information Admitting Physician Requests: Admit Jesús Dacosta MD Oct 11, 2016 10:23
[2016-10-11] MEDS ORDERED: SODIUM CHLORIDE 0.9% FLUSH 10 ML FLUSH IVF PRN (10:30)
[2016-10-11] MEDS ORDERED: methylPREDNISolone SOD SUCC 125 MG/2 ML VIAL IVP ONE (10:30)
[2016-10-11 10:47] LABS: AUTOMATED NEUTROPHIL # 6.2 TH/MM3 (1.8-7.7); BASOPHIL # 0.1 TH/MM3 (0-0.2); BASOPHIL % 0.8 % (0.0-2.0); EOSINOPHIL % 0.5 % (0.0-4.0); HEMATOCRIT 34.6 % (39.0-51.0); HEMO FLAGS DIFF FINAL; LYMPH % 2.5 % (9.0-44.0); LYMPHOCYTE # 0.2 TH/MM3 (1.0-4.8); MEAN CELL VOLUME 105.2 FL (80.0-100.0); MEAN CORPUSCULAR HEMOGLOBIN 36.2 PG (27.0-34.0); MEAN CORPUSCULAR HGB CONC 34.4 % (32.0-36.0); MONO % 12.3 % (0.0-8.0); NEUT % 83.9 % (16.0-70.0); PLATELET COUNT 216 TH/MM3 (150-450); RED BLOOD COUNT 3.29 MIL/MM3 (4.50-5.90); RED CELL DISTRIBUTION WIDTH 21.8 % (11.6-17.2); WHITE BLOOD COUNT 7.4 TH/MM3 (4.0-11.0)
[2016-10-11 11:03] LABS: MAGNESIUM 1.9 MG/DL (1.5-2.5); POTASSIUM 3.8 MEQ/L (3.5-5.1)
--- NOTE | 2016-10-11 11:06 | RADRPT ---
EXAM DATE/TIME: 10/11/2016 10:33 [facility] COMPARISON: CHEST SINGLE AP, August 04, 2016, 15:51. INDICATIONS : Shortness of breath. MEDICAL HISTORY : Hypertension. Hypercholesterolemia. Rheumatoid arthritis. TIA,, CAD. SURGICAL HISTORY : CABG. Cholecystectomy. Kyphoplasty. Hernia repair, Bilateral hip. ENCOUNTER: Initial ACUITY: 1 day PAIN SCORE: 0/10 LOCATION: Bilateral chest FINDINGS: There is slight perivascular pulmonary edema. Focal consolidation is not seen. There is evidence for prior median sternotomy. Heart and mediastinum are unremarkable for technique. CONCLUSION: Slight pulmonary edema. Yao Perez MD on October 11, 2016 at 11:04 Board Certified Radiologist. This report was verified electronically.
[2016-10-11] MEDS: RESP: ALBUTEROL 2.5 MG/IPRATROPIUM 0.5 MG NEB (SCH) INH (11:08)
[2016-10-11] MEDS ORDERED: FUROSEMIDE 40 MG/4 ML VIAL IV PUSH ONE (11:30)
[2016-10-11] MEDS: NITROGLYCERIN 0.4 MG SL 25 TABS/BTL SL SCH ×3 (11:35→13:00)
--- NOTE | 2016-10-11 14:12 | HHI.HP ---
[facility] Service Family Medicine Primary Care Physician [facility] Admission Diagnosis CHF, Dyspne Diagnoses: International Travel<30 Days: No Contact w/Intl Traveler<30days: No Known Affected Area: No History of Present Illness Pt is a 86 year Old male with past medical history significant for atrial fibrillation, coronary artery disease, hyperlipidemia, COPD presenting due to shortness of breath. Yesterday afternoon he began to feel short of breath and this has been getting progressively worse. He uses oxygen at home, usually 3 L, and had to increase it to 4L. This did not improve his breathing. He gave himself 4 nebulizer treatments and this normally helps, but this did not provide any significant relief. Shortness of breath is worse with movement , at times, better with rest. He is followed by Dr. Almanzar, Pulmonology, and last saw him about 3-4 weeks ago. He was started on 5mg po daily of prednisone. His independent video producer is Dr. Ponce, he has an appointment to scheduled for next month. He normally sleeps with one large pillow at night. He denies any lower extremity edema. He denies any recent illnesses or any sick contacts. He isn' t hospitalized about 56 times due to COPD, he has never been hospitalized for a CHF exacerbation. He denies ever needing to be intubated. (Leticia Flores MD R2) Review of Systems Constitutional: COMPLAINS OF: Fever (Subjective), DENIES: Dizziness Eyes: DENIES: Blurred vision Ears, nose, mouth, throat: DENIES: Hearing loss Respiratory: COMPLAINS OF: Cough, Sputum production, Shortness of breath Cardiovascular: DENIES: Chest pain, Syncope, Lower Extremity Edema Gastrointestinal: COMPLAINS OF: Abdominal pain, DENIES: Bloody stools, Constipation, Diarrhea Genitourinary: COMPLAINS OF: Urinary frequency Musculoskeletal: DENIES: Muscle aches Integumentary: DENIES: Rash Neurologic: DENIES: Localized weakness Psychiatric: DENIES: Mood changes (Leticia Flores MD R2) Past Family Social History Past Medical History rheumatoid arthritis atrial fibrillation CAD hyperlipidemia COPD TIA x2 hypertension Past Surgical History Inguinal Hernia repair CABG x 5 vessels 2002 Bilateral cataract removal Bladder surgery Renal cyst removal Bilateral hip replacement Reported Medications Reported Meds & Active Scripts Active Proventil Hfa 6.7 GM Inh (Albuterol Sulfate) 90 Mcg/Act Aer 2 Puff INH Q4-6H PRN Reported [Oxygen] 4 Liter INH DAILY Albuterol Neb (Albuterol Sulfate) 2.5 Mg/3 Ml Neb 2.5 Mg NEB Q4HR [Fish Oil 360MG] 360 Mg PO BID Multi Vitamin (Multiple Vitamin) 1 Tab Tab 1 Tab PO DAILY Vitamin D3 (Cholecalciferol) 2,000 Unit Tab 2,000 Units PO DAILY Vitamin B12 (Cyanocobalamin) Unknown Strength Tab 1 Tab PO DAILY Symbicort Inh (Budesonide/Formoterol Fumarate) Unknown Strength Aero 1 Puff INH DAILY Lisinopril 20 Mg Tab 20 Mg PO BID Methotrexate 2.5 Mg Tab 2.5 Mg PO MOTH Take 4 tablets (10mg) on Mondays and take 3 tablets (7.5mg) on Lasix (Furosemide) 40 Mg Tab 40 Mg PO DAILY Metoprolol Tartrate 100 Mg Tab 50 Mg PO DAILY Donepezil 10 Mg Tab 10 Mg PO HS Eliquis (Apixaban) 5 Mg Tab 5 Mg PO BID Folic Acid 5 Mg Cap 5 Mg PO BID (Leticai Flores MD R2) Allergies: Coded Allergies: Codeine (Verified Allergy, Severe, RASH & GI UPSET, 10/11/16) Horse Serum Proteins (Verified Allergy, Severe, 10/11/16) swelling at injection Quinine (Verified Allergy, Severe, 10/11/16) n/v Amoxicillin (Verified Allergy, Intermediate, GI UPSET, 10/11/16) Tetanus Toxoid (Verified Allergy, Intermediate, REDNESS AT INJECTION SITE , 10/11/16) Motrin (Verified Allergy, Mild, GI BLEEDING, 10/11/16) Nonsteroidal Anti-Inflammatory Agts (Verified Adverse Reaction, Intermediate, GI BLEEDING, 10/11/16) Family History Mother: Heart disease unspecified, of "fluid buildup" at 54 Father: unsure of medical problems, at 72 Social History Denies smoking He drinks a glass of red wine, about 4 oz a day Retired from working in the [employer] field. Lives at home with his . quit after after smoking 1PPD x 30 years He used to drink a beer a day. (Leticia Flores MD R2) Physical Exam Vital Signs Vital Signs Date Time Temp Pulse Resp B/P Pulse Ox O2 Delivery O2 Flow Rate FiO2 10/11/16 12:58 81 30 140/84 97 Nasal Cannula 4 10/11/16 10:10 103 28 89 Nasal Cannula 4 10/11/16 10:10 97 Nasal Cannula 4 10/11/16 10:10 97 Nasal Cannula 4 10/11/16 10:05 97.6 101 26 171/88 88 Nasal Cannula 4 Physical Exam GENERAL: This is a well-nourished, well-developed patient, in no apparent distress. Hard of hearing. SKIN: Cool and dry. HEAD: Atraumatic. Normocephalic. No temporal or scalp tenderness. EYES: Pupils equal round and reactive. Extraocular motions intact. No scleral icterus. No injection or drainage. Pt wearing glasses. ENT: Throat without erythema, tonsillar hypertrophy or exudate. Uvula midline. Airway patent. NECK: Trachea midline. No JVD or lymphadenopathy. Supple, nontender, no meningeal signs. CARDIOVASCULAR: Regular rate, irregular rhythm without murmurs, gallops, or rubs. RESPIRATORY: Slightly increased work of breathing, crackles at lung bases R>L. No wheezes, rales or rhonchi appreciated. Good air movement. GASTROINTESTINAL: Abdomen soft, diffusely mildly tender which pt attributes to coughing. nondistended. Umbilical hernia, reducible. No hepato-splenomegaly, or palpable masses. No guarding. MUSCULOSKELETAL: Extremities without clubbing, cyanosis, or edema. No joint tenderness, effusion, or edema noted. No calf tenderness. Negative Homans sign bilaterally. NEUROLOGICAL: Awake and alert. Motor and sensory grossly within normal limits. Normal speech. Laboratory Laboratory Tests Test 10/11/16 10:25 White Blood Count 7.4 Red Blood Count 3.29 Hemoglobin 11.9 Hematocrit 34.6 Mean Corpuscular Volume 105.2 Mean Corpuscular Hemoglobin 36.2 Mean Corpuscular Hemoglobin 34.4 Concent Red Cell Distribution Width 21.8 Platelet Count 216 Mean Platelet Volume 8.0 Neutrophils (%) (Auto) 83.9 Lymphocytes (%) (Auto) 2.5 Monocytes (%) (Auto) 12.3 Eosinophils (%) (Auto) 0.5 Basophils (%) (Auto) 0.8 Neutrophils # (Auto) 6.2 Lymphocytes # (Auto) 0.2 Monocytes # (Auto) 0.9 Eosinophils # (Auto) 0.0 Basophils # (Auto) 0.1 CBC Comment DIFF FINAL Differential Comment Sodium Level 137 Potassium Level 3.8 Chloride Level 103 Carbon Dioxide Level 27.0 Anion Gap 7 Blood Urea Nitrogen 14 Creatinine 1.18 Estimat Glomerular Filtration 59 Rate Random Glucose 100 Calcium Level 9.2 Magnesium Level 1.9 Troponin I 0.04 B-Type Natriuretic Peptide 805 (Leticia Flores MD R2) Result Diagram: 10/11/16 1025 10/11/16 1025 Assessment and Plan Assessment and Plan Pt is a 86 year Old male with past medical history significant for atrial fibrillation, coronary artery disease, hyperlipidemia, COPD presenting due to shortness of breath, admitted for CHF exacerbation. Code Status DNR Discussed Condition With DW Dr. Reed, Dr. Portillo (Leticia Flores MD R2) Attending Attestation THIS CASE WAS DISCUSSED WITH THE RESIDENT PHYSICIANS. I HAVE REVIEWED THE RECORD AND AGREE WITH THE ABOVE NOTE AND PLAN OF CARE WAS DISCUSSED. I HAVE AUTHORIZED THE ORDER FOR ADMISSION TO AN IN-PATIENT STATUS. (Alexandro Reed MD) Problem List: (1) CHF (congestive heart failure) Status: Acute Plan: Patient admitted due to CHF exacerbation. BNP elevated to 805. Patient reports that he has not had an echo completed within the last 6 months. Last echocardiogram in the EMR from 05/2014 with ejection fraction of 5560%. Mild regurgitation of the aortic valve, moderate calcification of the annulus and mild regurgitation of the mitral valve, mild regurgitation of the tricuspid valve. -Lasix 40 mg IV BID -Initial troponin elevated to 0.04 -We'll trend troponin, CK, EKGs 3 -Echo ordered -Telemetry -Monitor Is and Os -Daily weights Imaging: Chest x-ray 10/11: Slight pulmonary edema. Lungs do not appear hyperinflated. There is no flattening of the diaphragm History: Patient received Lasix 60 mg IV 1 in the ED (2) COPD (chronic obstructive pulmonary disease) Status: Chronic Plan: Continue home medications Proventil 2 puffs Q4hrs prn shortness of breath Albuterol nebulizer 2.5 mg Q4 prn shortness of breath Symbicort 1 puff daily DuoNeb's prn History: Patient given 125 mg of Solu-Medrol IV 1 in the ED due to concern for COPD exacerbation. Chest x ray, exam and labs more consistent with CHF exacerbation at this time. (3) Atrial fibrillation Status: Chronic Plan: Pt with history of atrial fibrillation. Currently followed by cardiology , Dr. Ponce. Continue home medications: Rate control with metoprolol Anticoagulation with Eliquis See plan for CHF (4) HTN (hypertension) Status: Resolved Plan: Continue home medications Lisinopril 20 mg po BID Metoprolol 50 mg po Daily (5) FEN/PPX Status: Acute Plan: Fluids: None, Pt fluid overloaded Electrolytes: within normal limits, continue to monitor Nutrition: Heart healthy DVT PPX: Eliquis GI PPX: Protonix Chronic medical conditions Rheumatoid arthritis: Continue home methotrexate Dementia: Continue home donepezil (Leticia Flores MD R2) Physician Certification 2 Midnight Certification Type: Admission for Inpatient Services Order for Inpatient Services The services are ordered in accordance with Medicare regulations or non- Medicare payer requirements, as applicable. In the case of services not specified as inpatient-only, they are appropriately provided as inpatient services in accordance with the 2-midnight benchmark. Estimated LOS (days): 2 2 days is the estimated time the patient will need to remain in the hospital, assuming treatment plan goals are met and no additional complications. Post-Hospital Plan: Not yet determined (Leticia Flores MD R2) Problem Qualifiers (1) CHF (congestive heart failure): Qualified Code: I50.9 - Congestive heart failure, unspecified congestive heart failure chronicity, unspecified congestive heart failure type (2) COPD (chronic obstructive pulmonary disease): Qualified Code: J44.9 - Chronic obstructive pulmonary disease, unspecified COPD type Leticia Flores MD R2 Oct 11, 2016 14:12 Alexandro Reed MD Oct 12, 2016 11:07
--- NOTE | 2016-10-11 14:17 | EKG ---
Date Performed: 10/11/2016 Time Performed: 10:13:09 PTAGE: 86 years EKG: ATRIAL FIBRILLATION WITH RAPID VENTRICULAR RESPONSE MODERATE INTRAVENTRICULAR CONDUCTION DE LAY MODERATE ST DEPRESSION Compared to previous tracing, heart rate is faster, otherwise, no signific ant change. ABNORMAL ECG PREVIOUS TRACING : 08/04/2016 18.29 DOCTOR: Juma Callaway Interpretating Date/Time 10/11/2016 14:16:43
[2016-10-11] MEDS ORDERED: ALBUTEROL SULFATE 90 MCG/ACT HFA 18 GM INHALER INH PRN (15:15)
[2016-10-11] MEDS ORDERED: SODIUM CHLORIDE 0.9% FLUSH 10 ML FLUSH IV FLUSH PRN (15:30)
[2016-10-11] MEDS: RESP: ALBUTEROL 2.5 MG/3 ML NEB (SCH) NEB ×3 (16:50→23:43)
[2016-10-11] MEDS: FUROSEMIDE 40 MG/4 ML VIAL IVP SCH (18:00)
[2016-10-11] MEDS: SODIUM CHLORIDE 0.9% FLUSH 10 ML FLUSH IV FLUSH SCH (20:35)
[2016-10-11] MEDS: DONEPEZIL HCL 5 MG TAB PO SCH (20:35)
[2016-10-11] MEDS: LISINOPRIL 20 MG TAB PO SCH (20:35)
[2016-10-11] MEDS: APIXABAN 5 MG TABLET PO SCH (20:36)
[2016-10-11] MEDS: POTASSIUM CHLORIDE 20 MEQ CONTROLLED RELEASE TAB PO SCH (20:36)
[2016-10-11] MEDS ORDERED: FOLIC ACID 1 MG TAB PO SCH (21:00)
[2016-10-11] MEDS ORDERED: FISH OIL 360 MG PO SCH (21:00)
--- NOTE | 2016-10-11 21:10 | HHI.HP ---
[facility] Service Family Medicine Primary Care Physician [facility] Admission Diagnosis CHF, Dyspne Diagnoses: International Travel<30 Days: No Contact w/Intl Traveler<30days: No Known Affected Area: No History of Present Illness 86 yo M presenting with progressive SOB that became very bad over the last 24 hours. He has a history of both CHF and COPD. He is normally on home O2 of 3L , but has noted that he has had to increase his oxygen at home to 4L without any improvement of his SOB. He feels as if he can't catch his breath, he endorses a cough productive of clear sputum at times. He also states that he has been unable to lie flat recently as his coughing and SOB would get worse. He follows with Dr. Haley for his COPD and was recently started on daily prednisone 5mg. He has been doing well with this. He denies wheezing, denies fevers/chills, denies nausea/vomiting, denies chest pain or palpitation. He has been using his nebulizer up to 4x daily without benefit. He follows with Dr. Ponce for his CHF and is scheduled to see him next month. He does take Lasix at home. He denies any lower ext. swelling or pain. He uses a walker to get around, has been using it for the past 4 months. Review of Systems Constitutional: DENIES: Fever, Weight gain, Chills, Dizziness Respiratory: COMPLAINS OF: Cough, Sputum production, Shortness of breath, DENIES: Wheezing Cardiovascular: COMPLAINS OF: Dyspnea on Exertion, Orthopnea, DENIES: Chest pain, Palpitations, Syncope, Lower Extremity Edema Gastrointestinal: DENIES: Abdominal pain Past Family Social History Past Medical History rheumatoid arthritis atrial fibrillation CAD hyperlipidemia COPD TIA x2 hypertension Past Surgical History Inguinal Hernia repair CABG x 5 vessels 2001 Bilateral cataract removal Bladder surgery Renal cyst removal Bilateral hip replacement Allergies: Coded Allergies: Codeine (Verified Allergy, Severe, RASH & GI UPSET, 10/11/16) Horse Serum Proteins (Verified Allergy, Severe, 10/11/16) swelling at injection Quinine (Verified Allergy, Severe, 10/11/16) n/v Amoxicillin (Verified Allergy, Intermediate, GI UPSET, 10/11/16) Tetanus Toxoid (Verified Allergy, Intermediate, REDNESS AT INJECTION SITE , 10/11/16) Motrin (Verified Allergy, Mild, GI BLEEDING, 10/11/16) Nonsteroidal Anti-Inflammatory Agts (Verified Adverse Reaction, Intermediate, GI BLEEDING, 10/11/16) Family History Mother: Heart disease unspecified, of "fluid buildup" at 54 Father: unsure of medical problems, at 72 Social History Denies smoking, He drinks a glass of red wine, about 4 oz a day Retired from working in the aluminum field. Lives at home with his . quit after after smoking 1PPD x 30 years He used to drink a beer a day. He last his taste in 2014 Physical Exam Vital Signs Vital Signs Date Time Temp Pulse Resp B/P Pulse Ox O2 Delivery O2 Flow Rate FiO2 10/11/16 20:56 97 Nasal Cannula 4.00 10/11/16 16:00 98.7 81 22 130/76 94 10/11/16 15:00 102 18 141/81 94 Nasal Cannula 4 10/11/16 12:58 81 30 140/84 97 Nasal Cannula 4 10/11/16 10:10 103 28 89 Nasal Cannula 4 10/11/16 10:10 97 Nasal Cannula 4 10/11/16 10:10 97 Nasal Cannula 4 10/11/16 10:05 97.6 101 26 171/88 88 Nasal Cannula 4 Physical Exam GENERAL: Frail appearing elderly male in bed in NAD SKIN: No rashes, ecchymoses or lesions. Cool and dry. NECK: JVD noted CARDIOVASCULAR: Regular rate and rhythm without murmurs, gallops, or rubs. RESPIRATORY: Overt crackles in bilateral bases to mid-lung field. No wheezes or rhonchi GASTROINTESTINAL: Abdomen soft, non-tender, nondistended. Large umbilical hernia that is easily reducible MUSCULOSKELETAL: Extremities without clubbing, cyanosis, or edema. NEUROLOGICAL: Awake and alert. Normal speech. Laboratory Laboratory Tests Test 10/11/16 10:25 White Blood Count 7.4 Red Blood Count 3.29 Hemoglobin 11.9 Hematocrit 34.6 Mean Corpuscular Volume 105.2 Mean Corpuscular Hemoglobin 36.2 Mean Corpuscular Hemoglobin 34.4 Concent Red Cell Distribution Width 21.8 Platelet Count 216 Mean Platelet Volume 8.0 Neutrophils (%) (Auto) 83.9 Lymphocytes (%) (Auto) 2.5 Monocytes (%) (Auto) 12.3 Eosinophils (%) (Auto) 0.5 Basophils (%) (Auto) 0.8 Neutrophils # (Auto) 6.2 Lymphocytes # (Auto) 0.2 Monocytes # (Auto) 0.9 Eosinophils # (Auto) 0.0 Basophils # (Auto) 0.1 CBC Comment DIFF FINAL Differential Comment Sodium Level 137 Potassium Level 3.8 Chloride Level 103 Carbon Dioxide Level 27.0 Anion Gap 7 Blood Urea Nitrogen 14 Creatinine 1.18 Estimat Glomerular Filtration 59 Rate Random Glucose 100 Calcium Level 9.2 Magnesium Level 1.9 Troponin I 0.04 B-Type Natriuretic Peptide 805 Result Diagram: 10/11/16 1025 10/11/16 1025 Assessment and Plan Assessment and Plan 86 yo M presenting with SOB likely due to CHF exacerbation Problem List: (1) Acute exacerbation of congestive heart failure Status: Acute Plan: Crackles on exam with SOB and BNP elevated to 805 Diurese with Lasix 40mg IV BID Continue beta francisco and LYNDA-I Monitor strict I's/O's Daily weights Fluid restriction to 1.5 L Sodium restriction Supplemental oxygen as needed Monitor on telemetry Cycle cardiac enzymes Echocardiogram ordered and pending (2) COPD (chronic obstructive pulmonary disease) Status: Chronic Plan: No wheezing on exam - doubtful for COPD exacerbation - Did recieve solumedrol 125mg IV x1 in the ED - Continue home symbicort - duonebs and albuterol treatments prn - supplemental oxygen as needed (3) Atrial fibrillation Status: Chronic Plan: 2d Echocardiogram pending - rate control with metoprolol - anticoagulation with Eliquis Monitor on telemetry Cycle cardiac enzymes (4) RA (rheumatoid arthritis) Status: Chronic Plan: Continue home methotrexate and folic acid (5) HTN (hypertension) Status: Resolved Plan: Continue home metoprolol and lisinopril - monitor vitals q4hr (6) CAD (coronary artery disease) Status: Chronic Plan: Stable - continue home medications including beta francisco - Pt. not reportedly on a statin - will start on pravastatin and obtain fasting lipid panel - On Eliquis for atrial fibrillation (7) HLD (hyperlipidemia) Status: Chronic Plan: Reported history of hyperlipidemia but pt. not currently on a statin - Obtain fasting lipid panel - begin pravastatin (8) FEN/PPX Status: Acute Physician Certification 2 Midnight Certification Type: Admission for Inpatient Services Order for Inpatient Services The services are ordered in accordance with Medicare regulations or non- Medicare payer requirements, as applicable. In the case of services not specified as inpatient-only, they are appropriately provided as inpatient services in accordance with the 2-midnight benchmark. Estimated LOS (days): 2 2 days is the estimated time the patient will need to remain in the hospital, assuming treatment plan goals are met and no additional complications. Post-Hospital Plan: Not yet determined Problem Qualifiers (1) COPD (chronic obstructive pulmonary disease): Qualified Code: J44.9 - Chronic obstructive pulmonary disease, unspecified COPD type Alexandro Reed MD Oct 11, 2016 21:10
[2016-10-11] MEDS ORDERED: METOPROLOL TARTRATE 5 MG/5 ML VIAL IV PUSH PRN (21:45)
[2016-10-11] MEDS ORDERED: DILTIAZEM HCL 25 MG/5 ML VIAL IV PUSH ONE (22:15)
[2016-10-11] MEDS ORDERED: DILTIAZEM HCL 25 MG/5 ML VIAL IV PUSH PRN (22:15)
[2016-10-11] MEDS ORDERED: DILTIAZEM HCL 30 MG TAB PO PRN (22:30)
[2016-10-11] MEDS: TEMAZEPAM 15 MG CAP PO PRN (22:31)
[2016-10-11] MEDS ORDERED: BENZONATATE 100 MG CAP PO PRN (23:00)
[2016-10-11] MEDS ORDERED: hydrALAZINE HCL 10 MG TAB PO PRN (23:15)
[2016-10-12] VITALS (8 sets, daily range): BP systolic 91–141; BP diastolic 50–150; PULSE 71–116; RESP 18–22; TEMP 98.2–102.9; O2SAT 94–100
[2016-10-12] MEDS: ACETAMINOPHEN 325 MG TAB PO PRN ×5 (01:21→17:17)
[2016-10-12 05:41] LABS: AUTOMATED NEUTROPHIL # 8.7 TH/MM3 (1.8-7.7); BASOPHIL % 0.1 % (0.0-2.0); HEMATOCRIT 35.6 % (39.0-51.0); LYMPH % 1.3 % (9.0-44.0); LYMPHOCYTE # 0.1 TH/MM3 (1.0-4.8); MEAN CELL VOLUME 105.7 FL (80.0-100.0); MEAN CORPUSCULAR HGB CONC 33.1 % (32.0-36.0); MONO % 14.9 % (0.0-8.0); NEUT % 83.7 % (16.0-70.0); PLATELET COUNT 204 TH/MM3 (150-450); RED BLOOD COUNT 3.37 MIL/MM3 (4.50-5.90); RED CELL DISTRIBUTION WIDTH 21.7 % (11.6-17.2); WHITE BLOOD COUNT 10.4 TH/MM3 (4.0-11.0)
[2016-10-12 05:47] LABS: HEMO FLAGS AUTO DIFF
[2016-10-12 05:52] LABS: BICARBONATE 27.9 MEQ/L (21.0-32.0); POTASSIUM 3.1 MEQ/L (3.5-5.1)
[2016-10-12] MEDS ORDERED: POTASSIUM CHLORIDE 10 MEQ CONTROLLED RELEASE TAB PO ONE (06:45)
[2016-10-12 07:08] LABS: OVALOCYTES 1+ (NORMAL); PLATELET ESTIMATE SMEAR NORMAL (NORMAL); PLATELET MORPHOLOGY NORMAL (NORMAL); SCAN/DIFF AUTO DIFF CONFIRMED
[2016-10-12] MEDS: RESP: ALBUTEROL 2.5 MG/3 ML NEB (SCH) NEB ×3 (07:36→23:50)
[2016-10-12] MEDS ORDERED: METHOTREXATE 2.5 MG TAB PO SCH (09:00)
[2016-10-12] MEDS: FUROSEMIDE 40 MG/4 ML VIAL IVP SCH ×2 (09:00→17:17)
[2016-10-12] MEDS: SODIUM CHLORIDE 0.9% FLUSH 10 ML FLUSH IV FLUSH SCH ×2 (09:00→21:40)
[2016-10-12] MEDS: BUDESONIDE-FORMOTEROL 80/4.5 MCG INHALER INH SCH (09:00)
[2016-10-12] MEDS: METOPROLOL TARTRATE 50 MG TAB PO SCH (09:00)
[2016-10-12] MEDS ORDERED: predniSONE 5 MG TAB PO SCH (09:00)
[2016-10-12] MEDS ORDERED: CYANOCOBALAMIN PO SCH (09:00)
[2016-10-12] MEDS: LISINOPRIL 20 MG TAB PO SCH ×2 (09:00→21:40)
[2016-10-12] MEDS ORDERED: PETROLATUM 30 GM TUBE TOPICAL PRN (09:00)
[2016-10-12 09:14] LABS: CREATINE KINASE 282 U/L (39-308)
--- NOTE | 2016-10-12 09:20 | RADRPT ---
EXAM DATE/TIME: 10/12/2016 08:47 [facility] COMPARISON: CT THORAX W/O CONTRAST, November 15, 2015, 15:21. CHEST SINGLE AP, October 11, 2016, 10:33. INDICATIONS : Short of breath MEDICAL HISTORY : Hypertension. Hypercholesterolemia. SURGICAL HISTORY : CABG. Kyphoplasty. ENCOUNTER: Subsequent ACUITY: 3 days PAIN SCORE: 0/10 LOCATION: Bilateral chest FINDINGS: Media sternotomy wires are status post cardiac surgery. Chronic fibrotic scarring and scattered emph ysematous changes are again noted. Superimposed acute infiltrates may be present within the right up per and left lower lung le. Clinical correlation is recommended. CONCLUSION: 1. Chronic fibrotic scarring and scattered emphysematous changes bilaterally. 2. Possible superimposed mild acute infiltrates within the right upper and left lower lung le. Timothy Ludwig MD on October 12, 2016 at 9:12 Board Certified Radiologist. This report was verified electronically.
[2016-10-12] MEDS: CHOLECALCIFEROL (VIT D3) 1000 UNIT TAB PO SCH (10:12)
[2016-10-12] MEDS: PANTOPRAZOLE SOD 40 MG DELAYED RELEASE TAB PO SCH (10:12)
[2016-10-12] MEDS: MULTIVITAMIN TAB PO SCH (10:13)
[2016-10-12] MEDS: POTASSIUM CHLORIDE 20 MEQ CONTROLLED RELEASE TAB PO SCH ×2 (10:14→21:39)
[2016-10-12] MEDS: APIXABAN 5 MG TABLET PO SCH ×2 (10:14→21:39)
--- NOTE | 2016-10-12 10:36 | HHI.FPPN ---
Subjective Remarks Patient seen and examined this morning by medical team. Patient with fever up to 101.3 overnight. Patient given Tylenol, however this morning patient's fever has increased to 102.3. At that time blood cultures were drawn and urinalysis obtained. Also overnight patient found to be in A. fib with RVR likely due to not receiving his home metoprolol yesterday. This morning the patient states that he feels better. His only complaint this morning are dry and cracked lips that have started to bleed. Otherwise he denies any chills, chest pain, shortness of breath, palpitations, abdominal pain, NVD, or bilateral calf tenderness. (Bandar Portillo MD R1) Objective Vitals Vital Signs Date Time Temp Pulse Resp B/P Pulse Ox O2 Delivery O2 Flow Rate FiO2 10/12/16 08:00 102.9 91 21 92/55 96 10/12/16 07:38 94 Nasal Cannula 2.00 10/12/16 04:00 98.2 83 18 104/64 96 10/12/16 00:00 101.3 108 22 138/78 94 10/11/16 23:44 93 Nasal Cannula 3.00 10/11/16 20:56 97 Nasal Cannula 4.00 10/11/16 20:00 98.6 96 20 151/84 95 10/11/16 20:00 124 10/11/16 16:00 98.7 81 22 130/76 94 10/11/16 15:00 102 18 141/81 94 Nasal Cannula 4 10/11/16 12:58 81 30 140/84 97 Nasal Cannula 4 I/O 10/11/16 10/11/16 10/11/16 10/12/16 10/12/16 10/12/16 07:00 15:00 23:00 07:00 15:00 23:00 Intake Total 360 ml 0 ml Output Total 1200 ml 750 ml Balance -1200 ml -390 ml 0 ml Intake Oral 360 ml 0 ml Output Urine Total 1200 ml 750 ml # Voids 1 1 # Bowel Movements 0 0 (Bandar Portillo MD R1) Result Diagram: 10/12/16 0411 10/12/16 041 Imaging Last 72 hours Impressions Chest X-Ray 10/12/16 0000 Signed Impressions: Service Date/Time: Wednesday, October 12, 2016 08:47 - CONCLUSION: 1. Chronic fibrotic scarring and scattered emphysematous changes bilaterally. 2. Possible superimposed mild acute infiltrates within the right upper and left lower lung le. Timothy Ludwig MD Chest X-Ray 10/11/16 1016 Signed Impressions: Service Date/Time: Tuesday, October 11, 2016 10:33 - CONCLUSION: Slight pulmonary edema. Yao Perez MD Objective Remarks GENERAL: 86-year-old male sitting up in bed currently eating his breakfast in no acute distress. SKIN: Cold and dry. No rash. HEENT: Atraumatic, normocephalic with EOMI. Upper and lower lips with dried blood from cracked skin, no acute bleeding. Moist mucous membranes with clear oropharynx. CARDIOVASCULAR: Regular rate and rhythm without obvious murmurs, gallops, or rubs. RESPIRATORY: Mild/fine crackles bilaterally in the bilateral bases. No wheezes or rhonchi. No increased work of breathing and saturating 92% on room air. GASTROINTESTINAL: Abdomen soft, non-tender, nondistended with positive bowel sounds. MUSCULOSKELETAL: No cyanosis or edema. Strength grossly WNL. NEURO/PSYCH: Afocal. Awake, alert, and oriented x3. Normal speech (Bandar Portillo MD R1) A/P Assessment and Plan Pt is a 86 year Old male with past medical history significant for atrial fibrillation, coronary artery disease, hyperlipidemia, COPD presenting due to shortness of breath, admitted for CHF exacerbation. Patient with fever overnight 10/11/16 with chest x-ray concerning for possible mild acute infiltrate. Team will concurrently treated for possible pneumonia/COPD exacerbation. Discharge Planning Pending clinical improvement. DW: Dr. Reed, Dr. Cherry, Dr. Tal Flores (Bandar Portillo MD R1) Attending Attestation Pt. examined and case discussed with resident team I have read the above note and agree with the assessment/plan as discussed with me I was involved in all medical decision making for this patient Alexandro Reed MD (Alexandro Reed MD) Problem List: (1) CHF (congestive heart failure) Status: Acute Plan: Patient admitted due to CHF exacerbation. BNP elevated to 805. Patient reports that he has not had an echo completed within the last 6 months. Last echocardiogram in the EMR from 05/2014 with ejection fraction of 5560%. Mild regurgitation of the aortic valve, moderate calcification of the annulus and mild regurgitation of the mitral valve, mild regurgitation of the tricuspid valve. -Lasix 40 mg IV BID -Troponins: 0.04, 0.02, 0.07 -Echo: Pending -Telemetry -Monitor Is and Os -Daily weights Imaging: Chest x-ray 10/11: Slight pulmonary edema. Lungs do not appear hyperinflated. There is no flattening of the diaphragm Chest x-ray 10/12: Chronic fibrotic scarring and scattered emphysematous changes bilaterally. Possible superimposed mild acute infiltrates within the right upper and left lower lung le. (2) COPD (chronic obstructive pulmonary disease) Status: Chronic Plan: Patient with fevers overnight Tmax of 102.9 degrees with hypotension to 92/55. Repeat chest x-ray concerning for possible mild acute infiltrate of right upper and left lower lung le. Team will treat for possible pneumonia/ COPD exacerbation. Lactic acid: Pending Imaging as above Ceftriaxone 1 g daily (10/12 ) Azithromycin 500 mg daily (10/12 ) Prednisone 40 mg daily Proventil 2 puffs Q4hrs prn shortness of breath Albuterol nebulizer 2.5 mg Q4 prn shortness of breath Symbicort 1 puff daily DuoNeb's prn (3) Atrial fibrillation Status: Chronic Plan: Patient with history of atrial fibrillation currently followed by Dr. Ponce. Overnight patient found to be in atrial fibrillation with RVR likely due to not receiving his home metoprolol yesterday. Metoprolol 50 mg daily Diltiazem 30 mg every 6 hours when necessary for heart rate greater than 110 (4) HTN (hypertension) Status: Resolved Plan: Patient with chronic hypertension. Lisinopril 20 mg po BID Hydralazine 10 mg by mouth every 6 hours when necessary for SBP greater than 180 or DBP greater than 100 (5) FEN/PPX Status: Acute Plan: Fluids: None, Pt fluid overloaded Electrolytes: Hypokalemia, repleted. Continue to monitor Nutrition: Heart healthy DVT PPX: Eliquis GI PPX: Protonix Chronic medical conditions Rheumatoid arthritis: Continue home methotrexate Dementia: Continue home donepezil Cheilitis: Petroleum ointment (Bandar Portillo MD R1) Problem Qualifiers (1) CHF (congestive heart failure): Qualified Code: I50.9 - Congestive heart failure, unspecified congestive heart failure chronicity, unspecified congestive heart failure type (2) COPD (chronic obstructive pulmonary disease): Qualified Code: J44.9 - Chronic obstructive pulmonary disease, unspecified COPD type Bandar Portillo MD R1 Oct 12, 2016 10:36 Alexandro Reed MD Oct 12, 2016 16:26
[2016-10-12] MEDS: RESP: ALBUTEROL 2.5 MG/IPRATROPIUM 0.5 MG NEB (PRN) NEB ×2 (11:17→15:59)
--- NOTE | 2016-10-12 11:40 | EKG ---
Date Performed: 10/11/2016 Time Performed: 21:24:26 PTAGE: 86 years EKG: ATRIAL FIBRILLATION WITH RAPID VENTRICULAR RESPONSE MARKED LEFT AXIS DEVIATION MODERATE INT RAVENTRICULAR CONDUCTION DELAY ST DEVIATION AND MODERATE T-WAVE ABNORMALITY, CONSIDER LATERAL ISCHEMI A ABNORMAL ECG PREVIOUS TRACING : 10/11/2016 10.13 Compared to prior tracing no significant change DOCTOR: Darwin Reeder Interpretating Date/Time 10/12/2016 11:39:33
[2016-10-12 13:52] LABS: BACTERIA, URINE RARE /hpf; BLOOD, URINE MOD (NEG); COMMENT (UR) CULT NOT INDICATED; CULTURE IF INDICATED CULT NOT INDICATED; GLUCOSE,URINE NEG (NEG); HYALINE CAST, URINE 17 /lpf (RARE); KETONE, URINE NEG (NEG); MUCUS URINE FEW /lpf (OCC); NITRITE,URINE NEG (NEG); PH, URINE 5.5 (5.0-8.5); SQUAMOUS EPITHELIAL CELL URINE <1 /hpf (0-5); URINE COLOR YELLOW (YELLW/STRAW)
[2016-10-12] MEDS: AZITHROMYCIN 250 MG TAB PO SCH (14:49)
[2016-10-12] MEDS: predniSONE 20 MG TAB PO SCH (14:50)
[2016-10-12] MEDS: cefTRIAXone INJ 1,000 MG in SODIUM CHLORIDE 0.9% INJ 100 ML IV SCH (14:50)
[2016-10-12 18:57] LABS: POTASSIUM 3.3 MEQ/L (3.5-5.1)
--- NOTE | 2016-10-12 19:04 | EC ---
Study Study Date:10/12/2016 STUDY CONCLUSIONS SUMMARY - Left ventricle: The cavity size was normal. Wall thickness was increased in a pattern of mild LVH. There was concentric hypertrophy. Systolic function was normal. The estimated ejection fraction was in the range of 55% to 60%. Although no diagnostic regional wall motion abnormality was identified, this possibility cannot be completely excluded on the basis of this study. - Aortic valve: Mild to moderate regurgitation. - Mitral valve: Moderately calcified annulus. Mild regurgitation. - Left atrium: The atrium was moderately dilated. - Right ventricle: The cavity size was moderately dilated. - Right atrium: The atrium was moderately dilated. - Tricuspid valve: Moderate regurgitation. If LV function is below 40, please consider prescribing an ACEI or ARB or document rationale for non-use. PROCEDURE DATA STUDY STATUS: Elective. Procedure: Transthoracic echocardiography. Image quality was good. Scanning was performed from the parasternal, apical, and subcostal acoustic windows. Study completion: The patient tolerated the procedure well. Transthoracic echocardiography. M-mode, complete 2D, complete spectral Doppler, and color Doppler. Height: Height: 65in. Weight: Weight: 137.7lb. Body mass index: BMI: 23kg/m^2. Body surface area: BSA: 1.69m^2. Patient status: Inpatient. CARDIAC ANATOMY LEFT VENTRICLE: The cavity size was normal. Wall thickness was increased in a pattern of mild LVH. There was concentric hypertrophy. Systolic function was normal. The estimated ejection fraction was in the range of 55% to 60%. Although no diagnostic regional wall motion abnormality was identified, this possibility cannot be completely excluded on the basis of this study. AORTIC VALVE: Trileaflet. Doppler: There was no stenosis. Mild to moderate regurgitation. MITRAL VALVE: Moderately calcified annulus. Doppler: There was no evidence for stenosis. Mild regurgitation. Valve area by pressure half-time: 3.61cm^2. Indexed valve area by pressure half-time: 2.14cm^2/m^2. Mean gradient: 2mm Hg (D). Peak gradient: 6mm Hg (D). LEFT ATRIUM: The atrium was moderately dilated. RIGHT VENTRICLE: The cavity size was moderately dilated. PULMONIC VALVE: Not well visualized. Doppler: There was no evidence for stenosis. Mild to moderate regurgitation. TRICUSPID VALVE: The valve appears to be grossly normal. Doppler: There was no evidence for stenosis. Moderate regurgitation. Peak gradient: 45mm Hg (D). RIGHT ATRIUM: The atrium was moderately dilated. PERICARDIUM: There was no pericardial effusion. Patient weight: 137.7lb _Ejection fraction:_ 65-75% _Fractional shortening:_ 32% up to 5Kg 5-11.5Kg 11.6-22.9Kg 23-45Kg 45-57Kg Aortic Root 7-13 <17 13-22 17-27 17-27 LA diam 6-13 <23 24-38 33-47 37-40 RVID 10-17 7-15 7-15 7-18 8-17 LVIDd 12-22 <32 24-38 33-47 37-40 LVPW 2-4 3-6 5-7 6-8 7-8 IVS 2-4 3-6 5-7 6-8 7-8 BASIC MEASUREMENTS ADULT NORMAL Left ventricle LV internal dimension, ED, chordal *31.2 mm 43-52 level, PLAX LV internal dimension, ES, chordal 23.5 mm 23-38 level, PLAX Fractional shortening, chordal level, *25 % >29 PLAX LV posterior wall thickness, ED 13.9 mm IVS/LVPW ratio, ED 1.01 <1.3 Volume, ED, MOD, 1-plane 38 ml Volume, ES, MOD, 1-plane 19 ml Ejection fraction, MOD, 1-plane 50 % Stroke volume, MOD, 1-plane 19 ml Volume index, ED, MOD, 1-plane 22 ml/m^2 Volume index, ES, MOD, 1-plane 11 ml/m^2 Stroke index, MOD, 1-plane 11.2 ml/m^2 Ventricular septum Septal thickness, ED 14.1 mm Aortic valve Leaflet separation 21 mm 15-26 Left atrium Anterior-posterior dimension 48 mm Anterior-posterior dimension index *2.84 cm/m^2 <2.2 Right ventricle RV internal dimension, ED, PLAX *38.7 mm 19-38 BASIC MEASUREMENTS ADULT NORMAL Aortic valve Leaflet separation 21 mm 15-26 Aorta Root diameter, ED 36 mm 20-37 Left atrium Anterior-posterior dimension, ES 40 mm 19-40 Anterior-posterior dimension index, ES *2.37 cm/m^2 <2.2 LA/aortic root ratio 1.11 DOPPLER MEASUREMENTS ADULT NORMAL Aortic valve Peak velocity, S 136 cm/s VTI, S 31.2 cm Regurgitant velocity, ED 373 cm/s Regurgitant deceleration 2630 cm/s^2 Regurgitant pressure half-time 415 ms Regurgitant gradient, ED 56 mm Hg Mitral valve Mean velocity, D 64.3 cm/s Pressure half-time 61 ms Mean gradient, D 2 mm Hg Peak gradient, D 6 mm Hg Valve area, pressure half-time 3.61 cm^2 Valve area index, pressure half-time 2.14 cm^2/m^2 Tricuspid valve Peak gradient, D 45 mm Hg Maximal inflow velocity 335 cm/s Systemic veins Estimated CVP 10 mm Hg Pulmonic valve Peak velocity, S 99.1 cm/s Acceleration time 211 ms LEGEND: Mean values are shown as u=mean value. Asterisk (*) guerrero values outside specified normal range. Prepared and signed by Abdi Dacosta [id number]
[2016-10-12] MEDS: DONEPEZIL HCL 5 MG TAB PO SCH (21:39)
[2016-10-13] VITALS (8 sets, daily range): BP systolic 104–140; BP diastolic 63–84; PULSE 77–115; RESP 18–20; TEMP 97.5–100.7; O2SAT 95–100
[2016-10-13] MEDS: RESP: ALBUTEROL 2.5 MG/3 ML NEB (SCH) NEB ×6 (03:57→23:44)
[2016-10-13] MEDS ORDERED: POTASSIUM CHLORIDE 25 MEQ EFFERVESCENT TAB PO ONE (06:15)
[2016-10-13] MEDS: AZITHROMYCIN 250 MG TAB PO SCH (07:54)
[2016-10-13] MEDS: CHOLECALCIFEROL (VIT D3) 1000 UNIT TAB PO SCH (07:54)
[2016-10-13] MEDS: MULTIVITAMIN TAB PO SCH (07:55)
[2016-10-13] MEDS: predniSONE 20 MG TAB PO SCH (07:55)
[2016-10-13] MEDS: APIXABAN 5 MG TABLET PO SCH ×2 (07:55→20:46)
[2016-10-13] MEDS: POTASSIUM CHLORIDE 20 MEQ CONTROLLED RELEASE TAB PO SCH ×2 (07:55→20:46)
[2016-10-13] MEDS: cefTRIAXone INJ 1,000 MG in SODIUM CHLORIDE 0.9% INJ 100 ML IV SCH (07:55)
[2016-10-13] MEDS: METOPROLOL TARTRATE 50 MG TAB PO SCH (07:55)
[2016-10-13] MEDS: SODIUM CHLORIDE 0.9% FLUSH 10 ML FLUSH IV FLUSH SCH ×2 (07:56→20:47)
[2016-10-13] MEDS: FUROSEMIDE 40 MG/4 ML VIAL IVP SCH (07:56)
[2016-10-13] MEDS: PANTOPRAZOLE SOD 40 MG DELAYED RELEASE TAB PO SCH (07:56)
[2016-10-13] MEDS: LISINOPRIL 20 MG TAB PO SCH ×2 (08:01→20:46)
[2016-10-13] MEDS: BUDESONIDE-FORMOTEROL 80/4.5 MCG INHALER INH SCH (09:00)
--- NOTE | 2016-10-13 10:08 | HHI.FPPN ---
Subjective Remarks Pt seen and examined this morning. Pt with Tmax of 100.7 this morning, HR elevated to 115. Labs for this morning pending. Reports feeling almost back at baseline, but he continues to feel short of breath. Oxygen saturation has been stable on 23 L NC, which he is on at home. He denies chest pain, abdominal pain , calf pain. He has not yet had swallow evaluation which was ordered due to difficulty swallowing medications. Pt reports that this has been a long standing issue and is not acute. (Leticia Flores MD R2) Objective Vitals Vital Signs Date Time Temp Pulse Resp B/P Pulse Ox O2 Delivery O2 Flow Rate FiO2 10/13/16 08:06 98 Nasal Cannula 3.00 10/13/16 08:00 100.7 115 20 132/84 95 10/13/16 04:00 98.5 95 19 140/77 98 10/13/16 00:00 97.5 77 18 105/67 100 10/12/16 20:00 71 10/12/16 20:00 98.3 84 20 106/68 100 10/12/16 19:45 96 Nasal Cannula 3.00 10/12/16 16:00 102.0 111 20 141/73 96 10/12/16 12:00 98.6 82 21 98/50 94 I/O 10/12/16 10/12/16 10/12/16 10/13/16 10/13/16 10/13/16 07:00 15:00 23:00 07:00 15:00 23:00 Intake Total 0 ml 480 ml 540 ml 240 ml Output Total 350 ml 400 ml Balance 0 ml 480 ml 190 ml -160 ml Intake Oral 0 ml 480 ml 440 ml 240 ml IV Total 100 ml Output Urine Total 350 ml 400 ml # Voids 1 1 # Bowel Movements 0 1 2 (Leticia Flores MD R2) Result Diagram: 10/12/16 0411 10/12/16 1825 Objective Remarks GENERAL: 86-year-old male sitting up in bed currently eating his breakfast in no acute distress. SKIN: Cold and dry. No rash. HEENT: Atraumatic, normocephalic with EOMI. Moist mucous membranes with clear oropharynx. CARDIOVASCULAR: Regular rate and rhythm without obvious murmurs, gallops, or rubs. RESPIRATORY: Mild crackles in lower lung le L>R. No wheezes or rhonchi. No increased work of breathing. GASTROINTESTINAL: Abdomen soft, non-tender, nondistended with positive bowel sounds. MUSCULOSKELETAL: No cyanosis or edema. Strength grossly WNL. NEURO/PSYCH: Afocal. Awake, alert, and oriented x3. Normal speech (Leticia Flores MD R2) A/P Assessment and Plan Pt is a 86 year Old male with past medical history significant for atrial fibrillation, coronary artery disease, hyperlipidemia, COPD presenting due to shortness of breath, admitted for CHF exacerbation. Patient with fever overnight 10/11/16 with chest x-ray concerning for possible mild acute infiltrate. Team will concurrently treated for possible pneumonia/COPD exacerbation. Discharge Planning Pending clinical improvement. Likely in the next 1-2 days. WDW: Dr. Reed (Leticia Flores MD R2) Attending Attestation Patient examined and case discussed with resident physician I have read the above note and agree with the assessment/plan as discussed with me I was involved in all medical decision making for this patient Alexandro Reed M.D. (Alexandro Reed MD) Problem List: (1) CHF (congestive heart failure) Status: Acute Plan: Patient admitted due to CHF exacerbation. BNP elevated to 805. Patient reports that he has not had an echo completed within the last 6 months. Last echocardiogram in the EMR from 05/2014 with ejection fraction of 5560%. Mild regurgitation of the aortic valve, moderate calcification of the annulus and mild regurgitation of the mitral valve, mild regurgitation of the tricuspid valve. -Lasix 40 mg PO BID -Troponins: 0.04, 0.02, 0.07, pt denies chest pain -Echo: Ejection fraction of 5560 percent. Aortic valve with mild to moderate regurgitation. Mitral valve with moderately calcified annulus. Mild regurgitation. RV dilated left atrium. Moderately dilated right ventricle. Moderately dilated right atrium. Moderate regurgitation of the tricuspid valve. -Telemetry -Daily weights Imaging: Chest x-ray 10/11: Slight pulmonary edema. Lungs do not appear hyperinflated. There is no flattening of the diaphragm Chest x-ray 10/12: Chronic fibrotic scarring and scattered emphysematous changes bilaterally. Possible superimposed mild acute infiltrates within the right upper and left lower lung le. (2) COPD (chronic obstructive pulmonary disease) Status: Chronic Plan: Patient with fevers overnight on 10/12 Tmax of 102.9 degrees with hypotension to 92/55, had elevated temperature of 100.7 this morning. Repeat chest x-ray concerning for possible mild acute infiltrate of right upper and left lower lung le. Team will treat for possible pneumonia/COPD exacerbation. Lactic acid: 2.2 Repeat lactic acid pending for this morning Imaging as above Medications: Ceftriaxone 1 g daily (10/12 ) Azithromycin 500 mg daily (10/12 ) Prednisone 40 mg daily Proventil 2 puffs Q4hrs prn shortness of breath Albuterol nebulizer 2.5 mg Q4 prn shortness of breath Symbicort 1 puff daily DuoNeb's prn (3) Atrial fibrillation Status: Chronic Plan: Patient with history of atrial fibrillation currently followed by Dr. Ponce. Patient found to be in atrial fibrillation with RVR. Metoprolol 50 mg daily Eliquis 5 mg BID Diltiazem 30 mg every 6 hours when necessary for heart rate greater than 110 (4) HTN (hypertension) Status: Resolved Plan: Patient with chronic hypertension. Lisinopril 20 mg po BID Hydralazine 10 mg by mouth every 6 hours PRN SBP > 180 or DBP >100 (5) FEN/PPX Status: Acute Plan: Fluids: None, Pt fluid overloaded Electrolytes: Hypokalemia, repleted. Continue to monitor Nutrition: Heart healthy DVT PPX: Eliquis GI PPX: Protonix Chronic medical conditions Rheumatoid arthritis: Continue home methotrexate Dementia: Continue home donepezil Cheilitis: Petroleum ointment (Leticia Folres MD R2) Problem Qualifiers (1) CHF (congestive heart failure): Qualified Code: I50.9 - Congestive heart failure, unspecified congestive heart failure chronicity, unspecified congestive heart failure type (2) COPD (chronic obstructive pulmonary disease): Qualified Code: J44.9 - Chronic obstructive pulmonary disease, unspecified COPD type Leticia Flores MD R2 Oct 13, 2016 10:08 Alexandro Reed MD Oct 13, 2016 16:12
[2016-10-13 12:48] LABS: AUTOMATED NEUTROPHIL # 9.1 TH/MM3 (1.8-7.7); BASOPHIL # 0.1 TH/MM3 (0-0.2); BASOPHIL % 0.6 % (0.0-2.0); HEMATOCRIT 39.4 % (39.0-51.0); LYMPHOCYTE # 0.1 TH/MM3 (1.0-4.8); MEAN CELL VOLUME 105.1 FL (80.0-100.0); MEAN CORPUSCULAR HEMOGLOBIN 35.3 PG (27.0-34.0); MEAN CORPUSCULAR HGB CONC 33.6 % (32.0-36.0); NEUT % 91.4 % (16.0-70.0); PLATELET COUNT 204 TH/MM3 (150-450); RED BLOOD COUNT 3.75 MIL/MM3 (4.50-5.90); RED CELL DISTRIBUTION WIDTH 21.5 % (11.6-17.2); WHITE BLOOD COUNT 9.9 TH/MM3 (4.0-11.0)
[2016-10-13 12:49] LABS: HEMO FLAGS AUTO DIFF
[2016-10-13 13:21] LABS: BICARBONATE 23.2 MEQ/L (21.0-32.0); MAGNESIUM 2.1 MG/DL (1.5-2.5); POTASSIUM 4.3 MEQ/L (3.5-5.1)
[2016-10-13 13:49] LABS: BANDS 14 % (0-6); CORRECTED NUCLEATED RBC 1 /100 WBC (0-0); NEUTROPHIL # MANUAL DIFF 9.4 TH/MM3 (1.8-7.7); OVALOCYTES 1+ (NORMAL); PLATELET ESTIMATE SMEAR NORMAL (NORMAL); PLATELET MORPHOLOGY NORMAL (NORMAL); POLYS (SEG NEUTROPHILS) 81 % (16-70); SCAN/DIFF FINAL DIFF MANUAL; WBC DIFF SAMPLE 100
--- NOTE | 2016-10-13 14:51 | HHI.DCPOC ---
Discharge Care Plan Diagnosis: (1) COPD (chronic obstructive pulmonary disease) (2) CHF (congestive heart failure) (3) Atrial fibrillation (4) HTN (hypertension) (5) RA (rheumatoid arthritis) (6) HLD (hyperlipidemia) (7) Acute exacerbation of congestive heart failure (8) CAD (coronary artery disease) Goals to Promote Your Health * To prevent worsening of your condition and complications * To maintain your health at the optimal level Directions to Meet Your Goals Take your medications as prescribed Follow your dietary instruction Follow activity as directed Keep your appointments as scheduled Take your immunizations and boosters as scheduled If your symptoms worsen call your PCP, if no PCP go to Urgent Care Center or Emergency Room Smoking is Dangerous to Your Health. Avoid second hand smoke Call the 24-hour hour crisis hotline for domestic abuse at Leticia Flores MD R2 Oct 13, 2016 14:51
[2016-10-13] MEDS ORDERED: LEVA750T PO (15:10)
[2016-10-13] MEDS ORDERED: POTA10SO12 PO (15:10)
[2016-10-13] MEDS ORDERED: PANT40TA3 PO (16:03)
[2016-10-13] MEDS ORDERED: PRED10 PO (16:03)
[2016-10-13] MEDS: FUROSEMIDE 40 MG TAB PO SCH (17:04)
[2016-10-13] MEDS: TEMAZEPAM 15 MG CAP PO PRN (20:45)
[2016-10-13] MEDS: ACETAMINOPHEN 325 MG TAB PO PRN (20:46)
[2016-10-13] MEDS: DONEPEZIL HCL 5 MG TAB PO SCH (20:46)
[2016-10-14] VITALS: BP 111/60; PULSE 76; RESP 18; TEMP 97; O2SAT 97
[2016-10-14 04:00] VITALS: BP 111/60; PULSE 98; RESP 18; TEMP 97.6; O2SAT 97
[2016-10-14] MEDS: RESP: ALBUTEROL 2.5 MG/3 ML NEB (SCH) NEB ×4 (04:22→15:22)
[2016-10-14] MEDS: cefTRIAXone INJ 1,000 MG in SODIUM CHLORIDE 0.9% INJ 100 ML IV SCH (07:43)
[2016-10-14] MEDS: MULTIVITAMIN TAB PO SCH (07:43)
[2016-10-14] MEDS: predniSONE 20 MG TAB PO SCH (07:44)
[2016-10-14] MEDS: PANTOPRAZOLE SOD 40 MG DELAYED RELEASE TAB PO SCH (07:44)
[2016-10-14] MEDS: APIXABAN 5 MG TABLET PO SCH (07:44)
[2016-10-14] MEDS: CHOLECALCIFEROL (VIT D3) 1000 UNIT TAB PO SCH (07:44)
[2016-10-14] MEDS: AZITHROMYCIN 250 MG TAB PO SCH (07:44)
[2016-10-14] MEDS: SODIUM CHLORIDE 0.9% FLUSH 10 ML FLUSH IV FLUSH SCH (07:45)
[2016-10-14] MEDS: FUROSEMIDE 40 MG TAB PO SCH (07:45)
[2016-10-14] MEDS: METOPROLOL TARTRATE 50 MG TAB PO SCH (07:45)
[2016-10-14] MEDS: LISINOPRIL 20 MG TAB PO SCH (07:45)
[2016-10-14 07:46] LABS: HEMATOCRIT 38.2 % (39.0-51.0); MEAN CELL VOLUME 103.9 FL (80.0-100.0); MEAN CORPUSCULAR HEMOGLOBIN 35.6 PG (27.0-34.0); MEAN CORPUSCULAR HGB CONC 34.3 % (32.0-36.0); PLATELET COUNT 182 TH/MM3 (150-450); RED BLOOD COUNT 3.68 MIL/MM3 (4.50-5.90); RED CELL DISTRIBUTION WIDTH 22.2 % (11.6-17.2)
[2016-10-14] MEDS: BUDESONIDE-FORMOTEROL 80/4.5 MCG INHALER INH SCH (07:46)
[2016-10-14 07:47] LABS: BICARBONATE 25.7 MEQ/L (21.0-32.0); MAGNESIUM 2.4 MG/DL (1.5-2.5); POTASSIUM 4.1 MEQ/L (3.5-5.1)
[2016-10-14 07:48] LABS: HEMO FLAGS AUTO DIFF
[2016-10-14 08:00] VITALS: BP 119/67; PULSE 93; RESP 18; TEMP 97.3; O2SAT 97
[2016-10-14 08:31] LABS: BANDS 7 % (0-6); NEUTROPHIL # MANUAL DIFF 8.7 TH/MM3 (1.8-7.7); OVALOCYTES 1+ (NORMAL); POLYS (SEG NEUTROPHILS) 60 % (16-70); WBC DIFF SAMPLE 100
[2016-10-14 08:32] LABS: PLATELET ESTIMATE SMEAR NORMAL (NORMAL); PLATELET MORPHOLOGY NORMAL (NORMAL); SCAN/DIFF FINAL DIFF MANUAL
[2016-10-14 08:33] VITALS: O2SAT 99
[2016-10-14] MEDS: POTASSIUM CHLORIDE 20 MEQ CONTROLLED RELEASE TAB PO SCH (08:54)
[2016-10-14 12:00] VITALS: BP 102/65; PULSE 88; RESP 18; TEMP 98.1; O2SAT 96
[2016-10-14] MEDS ORDERED: AZIT250T3 PO (12:40)
[2016-10-14] MEDS ORDERED: FURO1TAB60 PO (12:40)
[2016-10-14] MEDS ORDERED: LEVA750T PO (12:40)
--- NOTE | 2016-10-14 15:06 | HHI.FPPN ---
Subjective Remarks Patient seen and examined this morning. No acute events overnight and vital signs within normal limits. Patient states that he feels 100% better this morning and would like to return home. He states that his breathing is back to his baseline. When asked about a follow-up appointment, [facility]. He has no complaints this morning and denies any fevers, chills, shortness of breath, chest pain, abdominal pain, NVD, or calf tenderness. (Bandar Portillo MD R1) Objective Vitals Vital Signs Date Time Temp Pulse Resp B/P Pulse Ox O2 Delivery O2 Flow Rate FiO2 10/14/16 12:00 98.1 88 18 102/65 96 10/14/16 08:33 99 Nasal Cannula 3.00 10/14/16 08:00 97.3 93 18 119/67 97 10/14/16 04:00 97.6 98 18 111/60 97 10/14/16 00:00 97.0 76 18 111/60 97 10/13/16 20:00 81 10/13/16 20:00 97.6 98 18 110/63 95 10/13/16 19:43 97 Nasal Cannula 3.00 10/13/16 16:00 97.8 99 20 104/69 100 I/O 10/13/16 10/13/16 10/13/16 10/14/16 10/14/16 10/14/16 07:00 15:00 23:00 07:00 15:00 23:00 Intake Total 240 ml 170 ml Output Total 400 ml 275 ml 100 ml 2000 ml Balance -160 ml -105 ml -100 ml -2000 ml Intake Oral 240 ml 170 ml Output Urine Total 400 ml 275 ml 100 ml 2000 ml # Bowel Movements 2 0 0 (Bandar Portillo MD R1) Result Diagram: 10/14/1640410/14/16404 Objective Remarks GENERAL: 86-year-old male sitting up in bed currently eating his breakfast in no acute distress. SKIN: Cold and dry. No rash. Multiple bandages on the face s/p dermatologic procedures. Cheilitis improved. HEENT: Atraumatic, normocephalic with EOMI. Moist mucous membranes with clear oropharynx. CARDIOVASCULAR: Regular rate with irregular rhythm. No MGR. RESPIRATORY: Very mild crackles in lower lung le improved from admission exam. No wheezes or rhonchi. No increased work of breathing currently on 3L ( baseline). GASTROINTESTINAL: Abdomen soft, non-tender, nondistended with positive bowel sounds. MUSCULOSKELETAL: No cyanosis or edema. Strength grossly WNL. NEURO/PSYCH: Afocal. Awake, alert, and oriented x3. Normal speech (Bandar Portillo MD R1) A/P Assessment and Plan Pt is a 86 year Old male with past medical history significant for atrial fibrillation, coronary artery disease, hyperlipidemia, COPD presenting due to shortness of breath, admitted for CHF exacerbation. Patient with fever overnight 10/11/16 with chest x-ray concerning for possible mild acute infiltrate. Team will concurrently treated for possible pneumonia/COPD exacerbation. Discharge Planning Today with azithromycin and Levaquin for antibiotic coverage. Patient to follow with PCP, pulmonology, and cardiology within 1 week. WDW: Dr. Reed (Bandar Portillo MD R1) Attending Attestation Patient examined and case discussed with resident physician I have read the above note and agree with the assessment/plan as discussed with me I was involved in all medical decision making for this patient Alexandro Reed M.D. (Alexandro Reed MD) Problem List: (1) CHF (congestive heart failure) Status: Acute Plan: Patient admitted due to CHF exacerbation. BNP elevated to 805. Patient reports that he has not had an echo completed within the last 6 months. Last echocardiogram in the EMR from 05/2014 with ejection fraction of 5560%. Mild regurgitation of the aortic valve, moderate calcification of the annulus and mild regurgitation of the mitral valve, mild regurgitation of the tricuspid valve. Troponins: 0.04, 0.02, 0.07, pt denies chest pain Echo: Ejection fraction of 5560 percent. Aortic valve with mild to moderate regurgitation. Mitral valve with moderately calcified annulus. Mild regurgitation. RV dilated left atrium. Moderately dilated right ventricle. Moderately dilated right atrium. Moderate regurgitation of the tricuspid valve. Telemetry Daily weights Patient to be discharged home on Lasix 40 mg by mouth twice a day for 2 weeks, then he may return Lasix daily Imaging: Chest x-ray 10/11: Slight pulmonary edema. Lungs do not appear hyperinflated. There is no flattening of the diaphragm Chest x-ray 10/12: Chronic fibrotic scarring and scattered emphysematous changes bilaterally. Possible superimposed mild acute infiltrates within the right upper and left lower lung le. (2) COPD (chronic obstructive pulmonary disease) Status: Chronic Plan: Patient with fevers overnight on 10/12 Tmax of 102.9 degrees with hypotension to 92/55, had elevated temperature of 100.7 this morning. Repeat chest x-ray concerning for possible mild acute infiltrate of right upper and left lower lung le. Team will treat for possible pneumonia/COPD exacerbation. Lactic acid: 2.2 Repeat lactic acid pending for this morning Imaging as above Patient to be discharged home on 2 days of azithromycin and Levaquin for antibiotic coverage as well as prednisone taper. Medications: Ceftriaxone 1 g daily (); Levaquin 750 mg daily; continue for 2 days ( 5 days total) Azithromycin 500 mg daily (); Continue for 2 days (5 days total) Prednisone 40 mg daily, discharged home with taper Proventil 2 puffs Q4hrs prn shortness of breath Albuterol nebulizer 2.5 mg Q4 prn shortness of breath Symbicort 1 puff daily DuoNeb's prn (3) Atrial fibrillation Status: Chronic Plan: Patient with history of atrial fibrillation currently followed by Dr. Ponce. Patient found to be in atrial fibrillation with RVR. Metoprolol 50 mg daily Eliquis 5 mg BID Diltiazem 30 mg every 6 hours when necessary for heart rate greater than 110 (4) HTN (hypertension) Status: Resolved Plan: Patient with chronic hypertension. Lisinopril 20 mg po BID Hydralazine 10 mg by mouth every 6 hours PRN SBP > 180 or DBP >100 (5) FEN/PPX Status: Acute Plan: Fluids: None, Pt fluid overloaded Electrolytes: Hypokalemia, repleted. Continue to monitor Nutrition: Heart healthy DVT PPX: Eliquis GI PPX: Protonix Chronic medical conditions Rheumatoid arthritis: Continue home methotrexate Dementia: Continue home donepezil Cheilitis: Petroleum ointment (Bandar Portillo MD R1) Problem Qualifiers (1) CHF (congestive heart failure): Qualified Code: I50.9 - Congestive heart failure, unspecified congestive heart failure chronicity, unspecified congestive heart failure type (2) COPD (chronic obstructive pulmonary disease): Qualified Code: J44.9 - Chronic obstructive pulmonary disease, unspecified COPD type Bandar Portillo MD R1 Oct 14, 2016 15:06 Alexandro Reed MD Oct 14, 2016 16:53
--- NOTE | 2016-10-14 16:07 | HHI.DS ---
Discharge Summary Admission Date Oct 11, 2016 at 12:48 Discharge Date: Oct 14, 2016 Admitting Diagnosis CHF, Dyspne (1) CHF (congestive heart failure) Diagnosis: Principal Plan: Patient admitted due to CHF exacerbation. BNP elevated to 805. Patient reports that he has not had an echo completed within the last 6 months. Last echocardiogram in the EMR from 05/2014 with ejection fraction of 5560%. Mild regurgitation of the aortic valve, moderate calcification of the annulus and mild regurgitation of the mitral valve, mild regurgitation of the tricuspid valve. Troponins: 0.04, 0.02, 0.07, pt denies chest pain Echo: Ejection fraction of 5560 percent. Aortic valve with mild to moderate regurgitation. Mitral valve with moderately calcified annulus. Mild regurgitation. RV dilated left atrium. Moderately dilated right ventricle. Moderately dilated right atrium. Moderate regurgitation of the tricuspid valve. Telemetry Daily weights Patient to be discharged home on Lasix 40 mg by mouth twice a day for 2 weeks, then he may return Lasix daily Imaging: Chest x-ray 10/11: Slight pulmonary edema. Lungs do not appear hyperinflated. There is no flattening of the diaphragm Chest x-ray 10/12: Chronic fibrotic scarring and scattered emphysematous changes bilaterally. Possible superimposed mild acute infiltrates within the right upper and left lower lung le. (2) COPD (chronic obstructive pulmonary disease) Diagnosis: Principal Plan: Patient with fevers overnight on 10/12 Tmax of 102.9 degrees with hypotension to 92/55, had elevated temperature of 100.7 this morning. Repeat chest x-ray concerning for possible mild acute infiltrate of right upper and left lower lung le. Team will treat for possible pneumonia/COPD exacerbation. Lactic acid: 2.2 Repeat lactic acid pending for this morning Imaging as above Patient to be discharged home on 2 days of azithromycin and Levaquin for antibiotic coverage as well as prednisone taper. Medications: Ceftriaxone 1 g daily (); Levaquin 750 mg daily; continue for 2 days ( 5 days total) Azithromycin 500 mg daily (); Continue for 2 days (5 days total) Prednisone 40 mg daily, discharged home with taper Proventil 2 puffs Q4hrs prn shortness of breath Albuterol nebulizer 2.5 mg Q4 prn shortness of breath Symbicort 1 puff daily DuoNeb's prn (3) Atrial fibrillation Diagnosis: Principal Plan: Patient with history of atrial fibrillation currently followed by Dr. Ponce. Patient found to be in atrial fibrillation with RVR. Metoprolol 50 mg daily Eliquis 5 mg BID Diltiazem 30 mg every 6 hours when necessary for heart rate greater than 110 (4) HTN (hypertension) Diagnosis: Principal Plan: Patient with chronic hypertension. Lisinopril 20 mg po BID Hydralazine 10 mg by mouth every 6 hours PRN SBP > 180 or DBP >100 (5) FEN/PPX Diagnosis: Principal Plan: Fluids: None, Pt fluid overloaded Electrolytes: Hypokalemia, repleted. Continue to monitor Nutrition: Heart healthy DVT PPX: Eliquis GI PPX: Protonix Chronic medical conditions Rheumatoid arthritis: Continue home methotrexate Dementia: Continue home donepezil Cheilitis: Petroleum ointment Brief History Pt is a 86 year Old male with past medical history significant for atrial fibrillation, coronary artery disease, hyperlipidemia, COPD presenting due to shortness of breath. Yesterday afternoon he began to feel short of breath and this has been getting progressively worse. He uses oxygen at home, usually 3 L, and had to increase it to 4L. This did not improve his breathing. He gave himself 4 nebulizer treatments and this normally helps, but this did not provide any significant relief. Shortness of breath is worse with movement , at times, better with rest. He is followed by Dr. Almanzar, Pulmonology, and last saw him about 3-4 weeks ago. He was started on 5mg po daily of prednisone. His plasterer rough is Dr. Ponce, he has an appointment to scheduled for next month. He normally sleeps with one large pillow at night. He denies any lower extremity edema. He denies any recent illnesses or any sick contacts. He isn' t hospitalized about 56 times due to COPD, he has never been hospitalized for a CHF exacerbation. He denies ever needing to be intubated. CBC/BMP: 10/14/16 0405 10/14/16 0405 Significant Findings Laboratory Tests Test 10/12/16 10/12/16 10/12/16 10/12/16 04:11 10:54 13:10 18:25 Red Blood Count 3.37 MIL/MM3 (4.50-5.90) Hemoglobin 11.8 GM/DL (13.0-17.0) Hematocrit 35.6 % (39.0-51.0) Mean Corpuscular Volume 105.7 FL (80.0-100.0) Mean Corpuscular Hemoglobin 35.0 PG (27.0-34.0) Red Cell Distribution Width 21.7 % (11.6-17.2) Neutrophils (%) (Auto) 83.7 % (16.0-70.0) Lymphocytes (%) (Auto) 1.3 % (9.0-44.0) Monocytes (%) (Auto) 14.9 % (0.0-8.0) Neutrophils # (Auto) 8.7 TH/MM3 (1.8-7.7) Lymphocytes # (Auto) 0.1 TH/MM3 (1.0-4.8) Monocytes # (Auto) 1.5 TH/MM3 (0-0.9) Ovalocytes 1+ (NORMAL) Sodium Level 135 MEQ/L (136-145) Potassium Level 3.1 MEQ/L 3.3 MEQ/L (3.5-5.1) (3.5-5.1) Chloride Level 97 MEQ/L (98-107) Blood Urea Nitrogen 22 MG/DL (7-18) Estimat Glomerular Filtration 53 ML/MIN (>89) Rate Random Glucose 119 MG/DL (74-106) Troponin I 0.07 NG/ML (0.02-0.05) B-Type Natriuretic Peptide 517 PG/ML (0-100) Lactic Acid Level 2.2 mmol/L (0.4-2.0) Urine Turbidity HAZY (CLEAR) Urine Protein 100 mg/dL (NEG-TRACE) Urine Occult Blood MOD (NEG) Urine RBC 5 /hpf (0-3) Urine Bacteria RARE /hpf (NONE) Urine Mucus FEW /lpf (OCC) Test 10/13/16 10/14/16 12:22 04:05 Red Blood Count 3.75 MIL/MM3 3.68 MIL/MM3 (4.50-5.90) (4.50-5.90) Mean Corpuscular Volume 105.1 FL 103.9 FL (80.0-100.0) (80.0-100.0) Mean Corpuscular Hemoglobin 35.3 PG 35.6 PG (27.0-34.0) (27.0-34.0) Red Cell Distribution Width 21.5 % 22.2 % (11.6-17.2) (11.6-17.2) Neutrophils (%) (Auto) 91.4 % (16.0-70.0) Lymphocytes (%) (Auto) 1.0 % (9.0-44.0) Neutrophils # (Auto) 9.1 TH/MM3 (1.8-7.7) Lymphocytes # (Auto) 0.1 TH/MM3 (1.0-4.8) Neutrophils % (Manual) 81 % (16-70) Band Neutrophils % 14 % (0-6) 7 % (0-6) Lymphocytes % 3 % (9-44) Neutrophils # (Manual) 9.4 TH/MM3 8.7 TH/MM3 (1.8-7.7) (1.8-7.7) Nucleated Red Blood Cells 1 /100 WBC (0-0) Ovalocytes 1+ (NORMAL) 1+ (NORMAL) Sodium Level 133 MEQ/L 133 MEQ/L (136-145) (136-145) Blood Urea Nitrogen 35 MG/DL (7-18) 37 MG/DL (7-18) Creatinine 1.42 MG/DL (0.60-1.30) Estimat Glomerular Filtration 47 ML/MIN (>89) 54 ML/MIN (>89) Rate Random Glucose 133 MG/DL (74-106) Lactic Acid Level 2.1 mmol/L (0.4-2.0) White Blood Count 13.0 TH/MM3 (4.0-11.0) Hematocrit 38.2 % (39.0-51.0) Monocytes % 20 % (0-8) PE at Discharge GENERAL: 86-year-old male sitting up in bed currently eating his breakfast in no acute distress. SKIN: Cold and dry. No rash. Multiple bandages on the face s/p dermatologic procedures. Cheilitis improved. HEENT: Atraumatic, normocephalic with EOMI. Moist mucous membranes with clear oropharynx. CARDIOVASCULAR: Regular rate with irregular rhythm. No MGR. RESPIRATORY: Very mild crackles in lower lung le improved from admission exam. No wheezes or rhonchi. No increased work of breathing currently on 3L ( baseline). GASTROINTESTINAL: Abdomen soft, non-tender, nondistended with positive bowel sounds. MUSCULOSKELETAL: No cyanosis or edema. Strength grossly WNL. NEURO/PSYCH: Afocal. Awake, alert, and oriented x3. Normal speech Hospital Course Patient was admitted for CHF and COPD exacerbation. Cardiac event was ruled out with 3 negative troponins and stable EKG. Echocardiogram showed an EF of 55-60% with mild aortic and mitral valve regurgitation. He was treated for his COPD exacerbation with Ceftriaxone, Azithromycin, and Prednisone. The patient did well throughout his hospital course and was discharged home on 10/14 with Azithromycin and Levaquin for 5 total days of ABX coverage as well as a prednisone taper. He was also instructed double his Lasix dose to twice a day for 2 weeks and then return to Lasix daily. He was advised to follow up with cardiology, pulmonology, and PCP within 1 week. Pt Condition on Discharge: Stable Discharge Disposition: Discharge Home Discharge Instructions DIET: Follow Instructions for: Heart Healthy Diet Speech Therapy-Diet Recommends: Regular Activities you can perform: Regular-No Restrictions Follow up Referrals: Cardiology - 1 Week with Manolo Ponce MD PCP Follow-up - 1 Week Pulmonology - 1 Week with Tera Haley MD New Medications: Furosemide (Lasix) 40 Mg Tab 40 MG PO BID #14 Ref 0 TAB Levofloxacin (Levaquin) 750 Mg Tab 750 MG PO DAILY Infection #2 Ref 0 TAB Potassium Chloride Liq (Potassium Chloride Liq) 20 Meq/15 Ml Soln 20 MEQ PO DAILY Electrolyte Replacement Days 30 Ref 0 ML Prednisone (Prednisone) 10 Mg Tab 10 MG PO DAILY Take 40mg for 3 days Take 20mg for 3 days Take 10mg for 3 days Take 5mg for 3 days #24 Ref 0 TAB Azithromycin (Azithromycin) 250 Mg Tab 500 MG PO DAILY #2 TAB Pantoprazole (Pantoprazole) 40 Mg Tab 40 MG PO DAILY #14 TAB Continued Medications: Albuterol 6.7 GM Inh (Proventil Hfa 6.7 GM Inh) 90 Mcg/Act Aer 2 PUFF INH Q4-6H PRN SHORTNESS OF BREATH #1 Ref 0 INHALER Albuterol Neb (Albuterol Neb) 2.5 Mg/3 Ml Neb 2.5 MG NEB Q4HR Shortness of Breath #60 Ref 0 NEBULE Apixaban (Eliquis) 5 Mg Tab 5 MG PO BID Blood Clot Prevention #60 Ref 0 TAB Budesonide-Formoterol Inh (Symbicort Inh) Unknown Strength Aero 1 PUFF INH DAILY Asthma Management #1 Ref 0 INHALER Cholecalciferol (Vitamin D3) 2,000 Unit Tab 2000 UNITS PO DAILY Nutritional Supplement #1 Ref 0 BOTTLE Cyanocobalamin (Vitamin B12) Unknown Strength Tab 1 TAB PO DAILY #1 BOTTLE Donepezil (Donepezil) 10 Mg Tab 10 MG PO HS Dementia #30 Ref 0 TAB Folic Acid (Folic Acid) 5 Mg Cap 5 MG PO BID Nutritional Supplement Ref 0 CAP Furosemide (Lasix) 40 Mg Tab 40 MG PO DAILY #30 Ref 0 TAB Lisinopril (Lisinopril) 20 Mg Tab 20 MG PO BID #30 Ref 0 TAB Methotrexate (Methotrexate) 2.5 Mg Tab 2.5 MG PO MOTH Take 4 tablets (10mg) on Mondays and take 3 tablets (7.5mg) on Ref 0 TAB Metoprolol Tartrate (Metoprolol Tartrate) 100 Mg Tab 50 MG PO DAILY #30 Ref 0 TAB Multiple Vitamin (Multi Vitamin) 1 Tab Tab 1 TAB PO DAILY TAB ([Fish Oil 360MG]) 360 MG PO BID ([Oxygen]) 4 LITER INH DAILY Bandar Portillo MD R1 Oct 14, 2016 16:07
== END 2016-10-14 15:35 | disposition home or self-care (01) | DRG 292 ==
LOC: NEPC 10:03 → NEDA 12:48 → N04A 16:01
PROVIDERS: ADMIT Family Medicine; ATTEND Family Medicine
DX: I50.9 Heart failure, unspecified (principal); J44.1 Chronic obstructive pulmonary disease with (acute) exacerbation; F03.90 Unspecified dementia, unspecified severity, without behavioral disturbance, psychotic disturbance, mood disturbance, and anxiety; I48.91 Unspecified atrial fibrillation; M06.9 Rheumatoid arthritis, unspecified; I11.0 Hypertensive heart disease with heart failure; I25.10 Atherosclerotic heart disease of native coronary artery without angina pectoris; Z95.1 Presence of aortocoronary bypass graft; E78.5 Hyperlipidemia, unspecified; Z79.52 Long term (current) use of systemic steroids; Z79.02 Long term (current) use of antithrombotics/antiplatelets; E87.6 Hypokalemia; K13.0 Diseases of lips; Z86.73 Personal history of transient ischemic attack (TIA), and cerebral infarction without residual deficits; Z96.643 Presence of artificial hip joint, bilateral
CPT/HCPCS: 71010; 80048; 81001; 82550; 82552; 83605; 83735; 83880; 84100; 84132; 84484; 85007; 85025; 85027; 87040; 87086; 93005; 93306; 94150; 94640; 94664; 94667; 94668; 96374; J0696; J1940; J2930; J7512; J7613; J8610

== ENCOUNTER 2016-10-19 08:41 | Inpatient (IN) | payer MEDICARE, BC ==
[~2016-10-19] VITALS: Ht 177.8 cm; Wt 70.0 kg
[2016-10-19] VITALS (11 sets, daily range): BP systolic 98–139; BP diastolic 53–73; PULSE 60–129; RESP 16–34; TEMP 96.6–102.5; O2SAT 92–99
[~2016-10-19 08:41] MED LIST changes: +AZIT250T3 PO; +LEVA750T PO; +OXYGEN INH; +PANT40TA3 PO; +POTA10SO12 PO; +PRED10 PO
[2016-10-19] MEDS ORDERED: SODIUM CHLOR 0.9% 1000 ML INJ 1,000 ML IV ONE ×2 (09:05)
[2016-10-19] MEDS ORDERED: SODIUM CHLOR 0.9% 1000 ML INJ 100 ML IV ONE (09:05)
[2016-10-19] MEDS ORDERED: ACETAMINOPHEN 650 MG SUPP RECTAL ONE (09:15)
[2016-10-19 09:38] LABS: AUTOMATED NEUTROPHIL # 9.3 TH/MM3 (1.8-7.7); BASOPHIL # 0.1 TH/MM3 (0-0.2); BASOPHIL % 0.7 % (0.0-2.0); LYMPH % 1.2 % (9.0-44.0); LYMPHOCYTE # 0.1 TH/MM3 (1.0-4.8); MEAN CELL VOLUME 104.1 FL (80.0-100.0); MEAN CORPUSCULAR HEMOGLOBIN 34.4 PG (27.0-34.0); MONO % 10.8 % (0.0-8.0); NEUT % 87.3 % (16.0-70.0); PLATELET COUNT 281 TH/MM3 (150-450); RED BLOOD COUNT 3.75 MIL/MM3 (4.50-5.90); WHITE BLOOD COUNT 10.6 TH/MM3 (4.0-11.0)
[2016-10-19 09:44] LABS: HEMO FLAGS AUTO DIFF
[2016-10-19 09:48] LABS: APTT (PATIENT) 36.7 SEC (24.3-30.1); INTERNATIONAL NORMALIZED RATIO 1.4 RATIO; PROTHROMBIN TIME - PATIENT 15.5 SEC (9.8-11.6)
[2016-10-19 09:57] LABS: ANION GAP 15 MEQ/L (5-15); AST (GOT) 86 U/L (15-37); BICARBONATE 27.3 MEQ/L (21.0-32.0); BLOOD UREA NITROGEN 79 MG/DL (7-18); CHLORIDE 97 MEQ/L (98-107); GLOMERULAR FILTRATION RATE 24 ML/MIN (>89); POTASSIUM 4.7 MEQ/L (3.5-5.1); SODIUM (NA) 139 MEQ/L (136-145)
[2016-10-19 10:02] LABS: ALKALINE PHOSPHATASE 113 U/L (45-117); ALT (GPT) 59 U/L (12-78); CREATINE KINASE 756 U/L (39-308); TOTAL BILIRUBIN ADULT 0.9 MG/DL (0.2-1.0)
[2016-10-19] MEDS ORDERED: VANCOMYCIN INJ 1,000 MG in SODIUM CHLOR 0.9% 250 ML INJ 250 ML IV STA (10:13)
[2016-10-19] MEDS ORDERED: AZTREONAM INJ 2,000 MG in SODIUM CHLORIDE 0.9% INJ 100 ML IV STA (10:13)
[2016-10-19] MEDS ORDERED: metroNIDAZOLE 500 MG INJ 100 ML IV STA (10:13)
[2016-10-19 10:14] LABS: CKMB 0.8 NG/ML (0.5-3.6)
--- NOTE | 2016-10-19 10:21 | RADRPT ---
EXAM DATE/TIME: 10/19/2016 10:02 [facility] COMPARISON: No previous studies available for comparison. INDICATIONS : Right knee pain after falling today. MEDICAL HISTORY : Hypertension. Chronic obstructive pulmonary disease. Rheumatoid arthritis. SURGICAL HISTORY : CABG. Hardware placement. ENCOUNTER: Initial ACUITY: 1 day PAIN SCORE: 5/10 LOCATION: Right knee. FINDINGS: Multiple views of the right knee were obtained and demonstrate extensive degenerative changes with henrik int space loss, sclerosis and hypertrophic change greatest in the medial compartment. Chondrocalcinos is is noted in the medial lateral compartments. There are remote postsurgical changes involving the p roximal tibia with apparent old fracture deformity. Vascular calcifications are present. Calcificatio ns are present in the region of the suprapatella bursa area CONCLUSION: 1. 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 2. Remote postsurgical changes. Juan Melgar MD on October 19, 2016 at 10:18 Board Certified Radiologist. This report was verified electronically.
[2016-10-19 10:22] LABS: BANDS 6 % (0-6); METAMYELOCYTES 1 % (0-1); MYELOCYTES 2 % (0-0); NEUTROPHIL # MANUAL DIFF 9.9 TH/MM3 (1.8-7.7); PLATELET ESTIMATE SMEAR NORMAL (NORMAL); PLATELET MORPHOLOGY NORMAL (NORMAL); POLYS (SEG NEUTROPHILS) 84 % (16-70); SCAN/DIFF FINAL DIFF MANUAL; WBC DIFF SAMPLE 100
[2016-10-19 10:23] LABS: OVALOCYTES 1+ (NORMAL)
--- NOTE | 2016-10-19 10:23 | RADRPT ---
EXAM DATE/TIME: 10/19/2016 09:40 [facility] COMPARISON: No previous studies available for comparison. INDICATIONS : Right hip pain after falling today. MEDICAL HISTORY : Hypertension. Chronic obstructive pulmonary disease. Rheumatoid arthritis. SURGICAL HISTORY : CABG. Right total hip replacement. ENCOUNTER: Initial ACUITY: 1 day PAIN SCORE: 3/10 LOCATION: Right hip joint. FINDINGS: AP and frog leg lateral views of the right hip were obtained and demonstrate the patient is status po st right hip arthroplasty. The femoral and acetabular components are intact and in normal alignment. There is diffuse osteopenia with no acute fracture or malalignment. Vascular calcifications are prese nt. CONCLUSION: 1. No acute fracture or malalignment. 2. Osteopenia. The patient is status post right hip arthroplasty. Juan Melgar MD on October 19, 2016 at 10:21 Board Certified Radiologist. This report was verified electronically.
--- NOTE | 2016-10-19 10:23 | RADRPT ---
EXAM DATE/TIME: 10/19/2016 09:33 [facility] COMPARISON: No previous studies available for comparison. INDICATIONS : Left hip pain after falling today. MEDICAL HISTORY : Hypertension. Chronic obstructive pulmonary disease. Rheumatoid arthritis. SURGICAL HISTORY : CABG. Total hip replacement. ENCOUNTER: Initial ACUITY: 1 day PAIN SCORE: 10/10 LOCATION: Left hip joint FINDINGS: AP and crosstable lateral views of the left hip were obtained as well as an AP views of the pelvis. T he patient is status post bilateral hip arthroplasty. The femoral and acetabular components are intac t. There is diffuse osteopenia with no acute fracture or malalignment. Vascular calcifications are pr esent. CONCLUSION: 1. No acute fracture or malalignment. 2. That is post bilateral hip arthroplasty. Juan Melgar MD on October 19, 2016 at 10:20 Board Certified Radiologist. This report was verified electronically.
--- NOTE | 2016-10-19 10:38 | RADRPT ---
EXAM DATE/TIME: 10/19/2016 10:18 [facility] COMPARISON: CHEST SINGLE AP, October 12, 2016, 8:47. INDICATIONS : Shortness of breath, fever. MEDICAL HISTORY : Hypertension. Chronic obstructive pulmonary disease. Rheumatoid arthritis. SURGICAL HISTORY : CABG. ENCOUNTER: Initial ACUITY: 1 day PAIN SCORE: 0/10 LOCATION: Bilateral chest FINDINGS: A single view of the chest demonstrates scattered parenchymal densities. Previous median sternotomy. Heart normal size. The cardiomediastinal contours are unremarkable. Osseous structures are intact. CONCLUSION: Scattered parenchymal densities, slightly more prominent. Dale Ba MD on October 19, 2016 at 10:35 Board Certified Radiologist. This report was verified electronically.
[2016-10-19 10:44] LABS: BACTERIA, URINE RARE /hpf; BLOOD, URINE MOD (NEG); GLUCOSE,URINE NEG (NEG); HYALINE CAST, URINE 17 /lpf (RARE); KETONE, URINE NEG (NEG); MUCUS URINE FEW /lpf (OCC); NITRITE,URINE NEG (NEG); PH, URINE 5.5 (5.0-8.5); SQUAMOUS EPITHELIAL CELL URINE <1 /hpf (0-5); URINE COLOR YELLOW (YELLW/STRAW)
[2016-10-19 10:45] LABS: COMMENT (UR) CATH-CULTURE IND; CULTURE IF INDICATED CATH CULTURE IND
--- NOTE | 2016-10-19 11:10 | HHI.HP ---
[facility] Service Family Medicine Primary Care Physician [facility] Admission Diagnosis sepsis, dehydration, lactic acidosis Diagnoses: International Travel<30 Days: No Contact w/Intl Traveler<30days: No Known Affected Area: No History of Present Illness 86 yo male patient with a medical history significant for atrial fibrillation, coronary artery disease, hyperlipidemia, and COPD presents by EVAC after a fall. Patients is providing much of the history. She states that since his discharge from the hospital, he has had poor PO intake because he is loosing his teeth and chewing is painful. states he has been complaining of difficulty swallowing. has given him his medications as scheduled. This morning found her on the fool of the living room. states what she believed happened was that he urinated on himself while sleeping. He got up to walk to the bathroom but because of his weight loss his pants were long on him and he tripped on them. He called out to his several times but she did not hear him. states he denies any N/V, loose stools, CP, or SOB. She denies any fevers at home. He has been sedetary at home. reports he doesnt talk much but denies any hallucinations. Patient is on 4L of oxygen at baseline. He currently feels short of breath. Of note, the patient was admitted for CHF and COPD exacerbation October 11. During the hospitalization he was seen by his licensed veterinary technician and had a follow up appointment scheduled with his cloth washer back tender Dr. Ponce. The patient was discharged on Levaquin, lasix, and steroids in stable condition to his home on October 18. (Pebbles Rowland MD R3) Review of Systems Constitutional: COMPLAINS OF: Fever, Weight loss, Chills, Change in appetite Eyes: DENIES: Blurred vision, Diplopia Ears, nose, mouth, throat: DENIES: Hearing loss, Vertigo Respiratory: COMPLAINS OF: Wheezing, Sputum production, Shortness of breath Cardiovascular: COMPLAINS OF: Dyspnea on Exertion, DENIES: Chest pain, Palpitations, Syncope, Lower Extremity Edema Gastrointestinal: COMPLAINS OF: Difficulty Swallowing, Anorexia, DENIES: Abdominal pain, Nausea, Vomiting Genitourinary: COMPLAINS OF: Urinary incontinence Musculoskeletal: COMPLAINS OF: Joint pain, Muscle aches Hematologic/lymphatic: COMPLAINS OF: Bruising Neurologic: COMPLAINS OF: Abnormal gait, Localized weakness, Poor Balance Psychiatric: DENIES: Confusion, Hallucinations, Agitation (Pebbles Rowland MD R3) Past Family Social History Past Medical History Rheumatoid arthritis atrial fibrillation CAD hyperlipidemia COPD TIA x2 hypertension Past Surgical History Inguinal Hernia repair CABG x 5 vessels 2002 Bilateral cataract removal Bladder surgery Renal cyst removal Bilateral hip replacement (Pebbles Rowland MD R3) Allergies: Coded Allergies: Codeine (Verified Allergy, Severe, RASH & GI UPSET, 10/19/16) Horse Serum Proteins (Verified Allergy, Severe, 10/19/16) swelling at injection Quinine (Verified Allergy, Severe, 10/19/16) n/v Amoxicillin (Verified Allergy, Intermediate, GI UPSET, 10/19/16) Tetanus Toxoid (Verified Allergy, Intermediate, REDNESS AT INJECTION SITE , 10/19/16) Motrin (Verified Allergy, Mild, GI BLEEDING, 10/19/16) Nonsteroidal Anti-Inflammatory Agts (Verified Adverse Reaction, Intermediate, GI BLEEDING, 10/19/16) Active Ordered Medications Lasix (Furosemide) 40 Mg Tab 40 Mg PO BID Azithromycin 250 Mg Tab 500 Mg PO DAILY Levaquin (Levofloxacin) 750 Mg Tab 750 Mg PO DAILY Prednisone 10 Mg Tab 10 Mg PO DAILY Take 40mg for 3 days Take 20mg for 3 days Take 10mg for 3 days Take 5mg for 3 days Pantoprazole (Pantoprazole Sodium) 40 Mg Tab 40 Mg PO DAILY Potassium Chloride Liq (Potassium Chloride) 20 Meq/15 Ml Soln 20 Meq PO DAILY 30 Days Proventil Hfa 6.7 GM Inh (Albuterol Sulfate) 90 Mcg/Act Aer 2 Puff INH Q4-6H PRN [Oxygen] 4 Liter INH DAILY Albuterol Neb (Albuterol Sulfate) 2.5 Mg/3 Ml Neb 2.5 Mg NEB Q4HR [Fish Oil 360MG] 360 Mg PO BID Multi Vitamin (Multiple Vitamin) 1 Tab Tab 1 Tab PO DAILY Vitamin D3 (Cholecalciferol) 2,000 Unit Tab 2,000 Units PO DAILY Vitamin B12 (Cyanocobalamin) Unknown Strength Tab 1 Tab PO DAILY Symbicort Inh (Budesonide/Formoterol Fumarate) Unknown Strength Aero 1 Puff INH DAILY Lisinopril 20 Mg Tab 20 Mg PO BID Methotrexate 2.5 Mg Tab 2.5 Mg PO MOTH Take 4 tablets (10mg) on Mondays and take 3 tablets (7.5mg) on Metoprolol Tartrate 100 Mg Tab 50 Mg PO DAILY Donepezil 10 Mg Tab 10 Mg PO HS Eliquis (Apixaban) 5 Mg Tab 5 Mg PO BID Folic Acid 5 Mg Cap 5 Mg PO BID Family History Mother: Heart disease unspecified, of "fluid buildup" at 54 Father: unsure of medical problems, at 72 Social History Denies currently smoking, quit after after smoking 1PPD x 30 years He drinks a glass of red wine, about 4 oz a day and beer Retired from working in the [employer]. Lives at home with his . (Pebbles Rowland MD R3) Physical Exam Vital Signs Vital Signs Date Time Temp Pulse Resp B/P Pulse Ox O2 Delivery O2 Flow Rate FiO2 10/19/16 10:30 102.5 92 16 116/62 97 Nasal Cannula 4 10/19/16 09:52 96 Nasal Cannula 4 10/19/16 09:52 96 Nasal Cannula 4 10/19/16 08:55 94 Nasal Cannula 4 10/19/16 08:50 103 22 100/56 94 Physical Exam GENERAL: elderly man, appears uncomfortable, actively SOB. SKIN: multiple abrasions of upper and lower extremities of various stages of healing, stage 1 decubitus ulcer, fresh abrasion on right lower leg HEAD: Atraumatic. Normocephalic. No temporal or scalp tenderness. EYES: Pupils equal round and reactive. Extraocular motions intact. No scleral icterus. No injection or drainage. ENT: Nose without bleeding, purulent drainage or septal hematoma. Mucous membranes extremely dry, no teeth on the top with multiple dry scabs on upper gums, fresh blood is present on his tongue, white plaques on posterior pharynx. Airway patent. NECK: Trachea midline. No JVD or lymphadenopathy. Supple, nontender, no meningeal signs. CARDIOVASCULAR: Irregular rhythm, no murmurs appreciated RESPIRATORY: Increase work of breathing, supraclavicular retractions, audible wheezing appreciated without auscultation, some crackles are heard bilat, productive cough GASTROINTESTINAL: Abdomen soft, non-tender, nondistended. No hepato-splenomegaly , or palpable masses. No guarding. MUSCULOSKELETAL: Extremities without clubbing, cyanosis, or edema. No joint tenderness, effusion, or edema noted. No calf tenderness. NEUROLOGICAL: Awake and alert. Motor and sensory grossly within normal limits. Normal speech. Laboratory Laboratory Tests Test 10/19/16 10/19/16 10/19/16 09:25 09:29 10:25 White Blood Count 10.6 Red Blood Count 3.75 Hemoglobin 12.9 Hematocrit 39.0 Mean Corpuscular Volume 104.1 Mean Corpuscular Hemoglobin 34.4 Mean Corpuscular Hemoglobin 33.0 Concent Red Cell Distribution Width 22.0 Platelet Count 281 Mean Platelet Volume 8.7 Neutrophils (%) (Auto) 87.3 Lymphocytes (%) (Auto) 1.2 Monocytes (%) (Auto) 10.8 Eosinophils (%) (Auto) 0.0 Basophils (%) (Auto) 0.7 Neutrophils # (Auto) 9.3 Lymphocytes # (Auto) 0.1 Monocytes # (Auto) 1.2 Eosinophils # (Auto) 0.0 Basophils # (Auto) 0.1 CBC Comment AUTO DIFF Differential Total Cells 100 Counted Neutrophils % (Manual) 84 Band Neutrophils % 6 Monocytes % 7 Neutrophils # (Manual) 9.9 Metamyelocytes 1 Myelocytes 2 Differential Comment FINAL DIFF MANUAL Platelet Estimate NORMAL Platelet Morphology Comment NORMAL Ovalocytes 1+ Prothrombin Time 15.5 Prothromb Time International 1.4 Ratio Activated Partial 36.7 Thromboplast Time Sodium Level 139 Potassium Level 4.7 Chloride Level 97 Carbon Dioxide Level 27.3 Anion Gap 15 Blood Urea Nitrogen 79 Creatinine 2.56 Estimat Glomerular Filtration 24 Rate Random Glucose 89 Calcium Level 10.2 Total Bilirubin 0.9 Aspartate Amino Transf 86 (AST/SGOT) Alanine Aminotransferase 59 (ALT/SGPT) Alkaline Phosphatase 113 Total Creatine Kinase 756 Creatine Kinase MB 0.8 Creatine Kinase MB % 0.1 Troponin I 0.07 Total Protein 7.7 Albumin 2.8 Lipase 126 Lactic Acid Level 3.3 Urine Color YELLOW Urine Turbidity CLEAR Urine pH 5.5 Urine Specific [place] 1.013 Urine Protein TRACE Urine Glucose (UA) NEG Urine Ketones NEG Urine Occult Blood MOD Urine Nitrite NEG Urine Bilirubin NEG Urine Urobilinogen LESS THAN 2.0 Urine Leukocyte Esterase NEG Urine RBC 1 Urine WBC 1 Urine Squamous Epithelial <1 Cells Urine Bacteria RARE Urine Hyaline Casts 17 Urine Mucus FEW Microscopic Urinalysis Comment CATH-CULTURE IND Date/Time Procedure Status Source Growth 10/19/16 10:25 Urine Culture Received Urine Catheterized Urine Pending 10/19/16 09:25 Aerobic Blood Culture Received Blood Peripheral Pending 10/19/16 09:25 Anaerobic Blood Culture Received Blood Peripheral Pending (Pebbles Rowland MD R3) Result Diagram: 10/19/1692410/[id number]/16924 Imaging Last Impressions Hip and Pelvis X-Ray 10/19/16904 Signed Impressions: Service Date/Time: Wednesday, October 19, 2016 09:40 - CONCLUSION: 1. No acute fracture or malalignment. 2. Osteopenia. The patient is status post right hip arthroplasty. Juan Melgar MD Hip X-Ray 10/19/16904 Signed Impressions: Service Date/Time: Wednesday, October 19, 2016 09:33 - CONCLUSION: 1. No acute fracture or malalignment. 2. That is post bilateral hip arthroplasty. Juan Melgar MD Chest X-Ray 10/19/16904 Signed Impressions: Service Date/Time: Wednesday, October 19, 2016 10:18 - CONCLUSION: Scattered parenchymal densities, slightly more prominent. Dale Ba MD Knee X-Ray 10/19/16 0000 Signed Impressions: Service Date/Time: Wednesday, October 19, 2016 10:02 - CONCLUSION: 1. 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 2. Remote postsurgical changes. Juan Melgar MD (Pebbles Rowland MD R3) Assessment and Plan Assessment and Plan 86 yo male with AMS meets SEPSIS criteria, lung is likely the source. Code Status Full Discussed Condition With Dr. Jennifer Dawn, Luis E Reed (Pebbles Rowland MD R3) Attending Attestation THIS CASE WAS DISCUSSED WITH THE RESIDENT PHYSICIANS. I HAVE REVIEWED THE RECORD AND AGREE WITH THE ABOVE NOTE AND PLAN OF CARE WAS DISCUSSED. I HAVE AUTHORIZED THE ORDER FOR ADMISSION TO AN IN-PATIENT STATUS. (Alexandro Reed MD) Problem List: (1) Sepsis Status: Acute Plan: Patient presented febrile, with tachycardia, WBC 106 with 84% PMN, lactic aid 3.3. He was discharged from the hospital on Wed on Levaquin and Azithromycin. CXR read as scattered parenchymal densities, but per my read appears to be significantly worse than CXR on prior admission and appears diallo on the right lung. Concern with the patients difficulty swallowing is for aspiration PNA. Plan as follows: - s/p 3 L NS in ER - Blood cultures pending - urine culture pending - sputum culture obtained - received Vancomycin 1 G, Aztreonam 2g, Flagy 500 mg in the ER, will continue, but renally adjusted: aztreonam 1g q8, flagyl 500 mg q8, Vancomycin 1g ( pharmacy consult) - urine legionella and pneumococcal ordered - NS @ 120 cc/ hr - Chest PT (2) CHF (congestive heart failure) Status: Chronic Plan: Patient with a reported hx of CHF. ECHO done in September 2016 shows normal systolic function EF 55-60%. The patient was recently treat for CHF exacerbation and discharged on lasix 40 mg PO BID, regular home dose 40 mg PO daily. Patient is volume deplete and now with acute kidney injury. Plan - HOLD lasix - Continue home metoprolol 50 mg daily, lisinopril 20 mg PO BID - BNP added to blood in lab (3) COPD (chronic obstructive pulmonary disease) Status: Chronic Plan: Med hx significant for COPD, recently treated for exacerbation Plan - albuterol and duonebs alternating - continue home oxygen 4 L maintain sats 88-92% - was on prednisone taper, resume 10 mg PO daily (4) RA (rheumatoid arthritis) Status: Chronic Plan: Continue home methotrexate (5) Atrial fibrillation Status: Chronic Plan: Continue home eliquis (6) Fall Status: Acute Plan: Patient had sounds like a mechanical fall. His CPK is 756. Knee, hip, and pelvis X-ray are negative - Repeat CPK - IV hydration (7) ED (acute kidney injury) Status: Acute Plan: Cr during last admission 1.2, today is 2.56. Likely a result of increased lasix dose and dehydration. - renally dose all meds & avoid nephrotoxic agents - IVF - monitor closely (8) FEN/PPX Status: Acute Plan: Fluids: NS @ 120 cc/hr Electrolytes: continue KCl 20 meq daily Nutrition: NPO until bedside swallow GI prophylaxis: protonix while on steroids DVT prophylaxis: currently on eliquis PT manpreet (Pebbles Rowland MD R3) Physician Certification 2 Midnight Certification Type: Admission for Inpatient Services Order for Inpatient Services The services are ordered in accordance with Medicare regulations or non- Medicare payer requirements, as applicable. In the case of services not specified as inpatient-only, they are appropriately provided as inpatient services in accordance with the 2-midnight benchmark. Estimated LOS (days): 3 days is the estimated time the patient will need to remain in the hospital, assuming treatment plan goals are met and no additional complications. Post-Hospital Plan: SNF (Pebbles Rowland MD R3) Problem Qualifiers (1) Sepsis: Qualified Code: A41.9 - Sepsis, due to unspecified organism Pebbles Rowland MD R3 Oct 19, 2016 11:10 Alexandro Reed MD Oct 19, 2016 16:23
[2016-10-19 11:29] LABS: LACTIC ACID GHOST NOT REPORTABLE
[2016-10-19] MEDS ORDERED: METHOTREXATE 2.5 MG TAB PO SCH (12:00)
[2016-10-19] MEDS ORDERED: SODIUM CHLORIDE 0.9% FLUSH 10 ML FLUSH IV FLUSH PRN (12:00)
[2016-10-19] MEDS ORDERED: ONDANSETRON HCL 4 MG/2 ML VIAL IVP PRN (12:00)
[2016-10-19] MEDS ORDERED: ACETAMINOPHEN 325 MG TAB PO PRN (12:00)
[2016-10-19] MEDS ORDERED: NALOXONE HCL 0.4 MG/ML AMP IV PRN (12:00)
--- NOTE | 2016-10-19 12:40 | RADRPT ---
EXAM DATE/TIME: 10/19/2016 12:25 [facility] COMPARISON: CHEST SINGLE AP, October 19, 2016, 10:18. INDICATIONS : Evaluate for pnuemonia. MEDICAL HISTORY : Hypertension. Chronic obstructive pulmonary disease. Rheumatoid arthritis. SURGICAL HISTORY : CABG. ENCOUNTER: Subsequent ACUITY: 1 day PAIN SCORE: 0/10 LOCATION: Bilateral chest FINDINGS: PA and lateral views of the chest demonstrate scattered interstitial densities. Heart borderline enla rged. Previous CABG. Osseous structures are intact. CONCLUSION: Scattered interstitial densities could be interstitial edema or interstitial infiltrate. Dale Ba MD on October 19, 2016 at 12:34 Board Certified Radiologist. This report was verified electronically.
--- NOTE | 2016-10-19 12:59 | PD ---
HPI Chief Complaint: Fall Time Seen by Provider: 09:00 Travel History International Travel<30 days: No Contact w/Intl Traveler<30days: No Traveled to known affect area: No History of Present Illness HPI Patient is a 86-year-old male with history of CHF, COPD with recent hospital admission for CHF exacerbation here with altered mental status, increased lethargy and reported fall. Apparently he has had poor oral intake since being home. He got up to use the restroom and found him on the living room floor. Unclear how long he had been there. He denies any headache, complains of right knee pain only. EMS notes some shortening of the left leg but he denies any pain here. Patient is a poor historian and is able to cooperate only literal with history due to his mentation. PFSH Past Medical History Hx Anticoagulant Therapy: Yes Arthritis: Yes (rheumatoid arthritis) Asthma: No Autoimmune Disease: No Anxiety: No Depression: No Heart Rhythm Problems: Yes Cancer: No Cardiovascular Problems: Yes (HTN) High Cholesterol: Yes Chemotherapy: No Chest Pain: No Congestive Heart Failure: No COPD: Yes Cerebrovascular Accident: Yes (TIA'S) Coronary Artery Disease: Yes Diabetes: No Diminished Hearing: No Endocrine: No GERD: No Genitourinary: Yes Headaches: No Hepatitis: No Hiatal Hernia: No Hypertension: Yes Immune Disorder: Yes (RHEUMATOID ARTHRITIS) Implanted Vascular Access Dvce: Yes Kidney Stones: Yes (not stones but cyst) Musculoskeletal: Yes Neurologic: No Psychiatric: No Reproductive: No Respiratory: Yes (COPD ) Migraines: No Radiation Therapy: No Renal Failure: No Seizures: No Sickle Cell Disease: No Sleep Apnea: No Thyroid Disease: No Ulcer: No Past Surgical History Abdominal Surgery: Yes (HERNIA REPAIR) AICD: No Arteriovenous Shunt: No Cardiac Surgery: Yes (coronary bypass grafting 2001) Cholecystectomy: Yes Coronary Artery Bypass Graft: Yes (X5 VESSELS 2001) Ear Surgery: No Endocrine Surgery: No Eye Surgery: Yes (cataracts resection bilaterally) Genitourinary Surgery: Yes (bladder surgery, removal of renal cyst) Gynecologic Surgery: No Insulin Pump: No Joint Replacement: Yes (BILAT HIP) Oral Surgery: No Pacemaker: No Thoracic Surgery: No Other Surgery: Yes (TWO HERNIA REPAIRS) Social History Alcohol Use: Yes (OCC BEER) Tobacco Use: No Substance Use: No Allergies-Medications (Allergen,Severity, Reaction): Coded Allergies: Codeine (Verified Allergy, Severe, RASH & GI UPSET, 10/19/16) Horse Serum Proteins (Verified Allergy, Severe, 10/19/16) swelling at injection Quinine (Verified Allergy, Severe, 10/19/16) n/v Amoxicillin (Verified Allergy, Intermediate, GI UPSET, 10/19/16) Tetanus Toxoid (Verified Allergy, Intermediate, REDNESS AT INJECTION SITE , 10/19/16) Motrin (Verified Allergy, Mild, GI BLEEDING, 10/19/16) Nonsteroidal Anti-Inflammatory Agts (Verified Adverse Reaction, Intermediate, GI BLEEDING, 10/19/16) Reported Meds & Prescriptions Reported Meds & Active Scripts Active Lasix (Furosemide) 40 Mg Tab 40 Mg PO BID Prednisone 10 Mg Tab 10 Mg PO DAILY Take 40mg for 3 days Take 20mg for 3 days Take 10mg for 3 days Take 5mg for 3 days Pantoprazole (Pantoprazole Sodium) 40 Mg Tab 40 Mg PO DAILY Potassium Chloride Liq (Potassium Chloride) 20 Meq/15 Ml Soln 20 Meq PO DAILY 30 Days Proventil Hfa 6.7 GM Inh (Albuterol Sulfate) 90 Mcg/Act Aer 2 Puff INH Q4-6H PRN Reported [Oxygen] 4 Liter INH DAILY Albuterol Neb (Albuterol Sulfate) 2.5 Mg/3 Ml Neb 2.5 Mg NEB Q4HR [Fish Oil 360MG] 360 Mg PO BID Multi Vitamin (Multiple Vitamin) 1 Tab Tab 1 Tab PO DAILY Vitamin D3 (Cholecalciferol) 2,000 Unit Tab 2,000 Units PO DAILY Vitamin B12 (Cyanocobalamin) Unknown Strength Tab 1 Tab PO DAILY Symbicort Inh (Budesonide/Formoterol Fumarate) Unknown Strength Aero 1 Puff INH DAILY Lisinopril 20 Mg Tab 20 Mg PO BID Methotrexate 2.5 Mg Tab 2.5 Mg PO MOTH Take 4 tablets (10mg) on Mondays and take 3 tablets (7.5mg) on Lasix (Furosemide) 40 Mg Tab 40 Mg PO DAILY Metoprolol Tartrate 100 Mg Tab 50 Mg PO DAILY Donepezil 10 Mg Tab 10 Mg PO HS Eliquis (Apixaban) 5 Mg Tab 5 Mg PO BID Folic Acid 5 Mg Cap 5 Mg PO BID Review of Systems ROS Limitations: Altered Mental Status, Poor Historian Physical Exam Exam Limitations: Altered Mental Status, Poor Historian Narrative GENERAL: Cachectic elderly male in no acute distress SKIN: Focused skin assessment warm/dry. HEAD: Atraumatic. Normocephalic. EYES: Pupils equal and round. No scleral icterus. No injection or drainage. ENT: No nasal bleeding or discharge. Mucous membranes very dry NECK: Supple CARDIOVASCULAR: Slightly tachycardic with heart rate in the 100s, irregularly irregular rhythm. No murmur appreciated. RESPIRATORY: No accessory muscle use. Decreased throughout GASTROINTESTINAL: Abdomen soft, non-tender, nondistended. MUSCULOSKELETAL: No obvious deformities. No edema. Left leg is shortened, bilateral scars from previous arthroplasty of the hip. Patient has slight pain with range of motion of the right knee. NEUROLOGICAL: Drowsy, alert to self and place but not time. Does not recall events leading up to him being here. No gross focal neuro deficit. PSYCHIATRIC: Deferred given mental status Data Data Last Documented VS Vital Signs Date Time Temp Pulse Resp B/P Pulse Ox O2 Delivery O2 Flow Rate FiO2 10/19/16 10:30 102.5 92 16 116/62 97 Nasal Cannula 4 Orders Electrocardiogram (10/19/16 09:05) Complete Blood Count With Diff (10/19/16 09:05) Comprehensive Metabolic Panel (10/19/16 09:05) Prothrombin Time / Inr (Pt) (10/19/16 09:05) Act Partial Throm Time (Ptt) (10/19/16 09:05) Lactic Acid Sepsis Protocol (10/19/16 09:05) Lipase (10/19/16 09:05) Troponin I (10/19/16 09:05) Urinalysis - C+S If Indicated (10/19/16 09:05) Blood Culture (10/19/16 09:05) Chest, Single Ap (10/19/16 09:05) Blood Glucose (10/19/16 09:05) Ecg Monitoring (10/19/16 09:05) Iv Access Insert/Monitor (10/19/16 09:05) Cath For Specimen (10/19/16 09:05) Oximetry (10/19/16 09:05) Oxygen Administration (10/19/16 09:05) Acetaminophen Supp (Tylenol Supp) (10/19/16 09:15) Sodium Chlor 0.9% 1000 Ml Inj (Ns 1000 M (10/19/16 09:05) Sodium Chlor 0.9% 1000 Ml Inj (Ns 1000 M (10/19/16 09:05) Sodium Chlor 0.9% 1000 Ml Inj (Ns 1000 M (10/19/16 09:05) Creatine Kinase (Cpk) (10/19/16 09:05) Hip, Uni(Ap&Lat) Wo Ap Pelvis (10/19/16 09:05) Hip, Uni(Ap&Lat) W Ap Pelvis (10/19/16 09:05) Knee, Complete (4vws) (10/19/16 ) CKMB (10/19/16 09:25) CKMB% (10/19/16 09:25) Vancomycin Inj (Vancomycin Inj) (10/19/16 10:13) Aztreonam Inj (Azactam Inj) (10/19/16 10:13) Metronidazole 500 Mg Inj (Flagyl 500 Mg (10/19/16 10:13) Urine Culture (10/19/16 10:25) Admit Order (Ed Use Only) (10/19/16 11:06) Labs Laboratory Tests Test 10/19/16 10/19/16 10/19/16 09:25 09:29 10:25 White Blood Count 10.6 TH/MM3 Red Blood Count 3.75 MIL/MM3 Hemoglobin 12.9 GM/DL Hematocrit 39.0 % Mean Corpuscular Volume 104.1 FL Mean Corpuscular Hemoglobin 34.4 PG Mean Corpuscular Hemoglobin 33.0 % Concent Red Cell Distribution Width 22.0 % Platelet Count 281 TH/MM3 Mean Platelet Volume 8.7 FL Neutrophils (%) (Auto) 87.3 % Lymphocytes (%) (Auto) 1.2 % Monocytes (%) (Auto) 10.8 % Eosinophils (%) (Auto) 0.0 % Basophils (%) (Auto) 0.7 % Neutrophils # (Auto) 9.3 TH/MM3 Lymphocytes # (Auto) 0.1 TH/MM3 Monocytes # (Auto) 1.2 TH/MM3 Eosinophils # (Auto) 0.0 TH/MM3 Basophils # (Auto) 0.1 TH/MM3 CBC Comment AUTO DIFF Differential Total Cells 100 Counted Neutrophils % (Manual) 84 % Band Neutrophils % 6 % Monocytes % 7 % Neutrophils # (Manual) 9.9 TH/MM3 Metamyelocytes 1 % Myelocytes 2 % Differential Comment FINAL DIFF MANUAL Platelet Estimate NORMAL Platelet Morphology Comment NORMAL Ovalocytes 1+ Prothrombin Time 15.5 SEC Prothromb Time International 1.4 RATIO Ratio Activated Partial 36.7 SEC Thromboplast Time Sodium Level 139 MEQ/L Potassium Level 4.7 MEQ/L Chloride Level 97 MEQ/L Carbon Dioxide Level 27.3 MEQ/L Anion Gap 15 MEQ/L Blood Urea Nitrogen 79 MG/DL Creatinine 2.56 MG/DL Estimat Glomerular Filtration 24 ML/MIN Rate Random Glucose 89 MG/DL Calcium Level 10.2 MG/DL Total Bilirubin 0.9 MG/DL Aspartate Amino Transf 86 U/L (AST/SGOT) Alanine Aminotransferase 59 U/L (ALT/SGPT) Alkaline Phosphatase 113 U/L Total Creatine Kinase 756 U/L Creatine Kinase MB 0.8 NG/ML Creatine Kinase MB % 0.1 % Troponin I 0.07 NG/ML Total Protein 7.7 GM/DL Albumin 2.8 GM/DL Lipase 126 U/L Lactic Acid Level 3.3 mmol/L Urine Color YELLOW Urine Turbidity CLEAR Urine pH 5.5 Urine Specific [place] 1.013 Urine Protein TRACE mg/dL Urine Glucose (UA) NEG mg/dL Urine Ketones NEG mg/dL Urine Occult Blood MOD Urine Nitrite NEG Urine Bilirubin NEG Urine Urobilinogen LESS THAN 2.0 MG/DL Urine Leukocyte Esterase NEG Urine RBC 1 /hpf Urine WBC 1 /hpf Urine Squamous Epithelial <1 /hpf Cells Urine Bacteria RARE /hpf Urine Hyaline Casts 17 /lpf Urine Mucus FEW /lpf Microscopic Urinalysis Comment CATH-CULTURE IND MDM Medical Decision Making Medical Screen Exam Complete: Yes Emergency Medical Condition: Yes Medical Record Reviewed: Yes Differential Diagnosis 86 year-old male with history of CHF, COPD, A. fib here with change in mentation. Patient is febrile, slightly tachycardic. Strong suspicion for sepsis, pneumonia, UTI, bacteremia. Differential includes dehydration, electrolyte abnormality, renal insufficiency, symptomatic anemia, fracture of the hip or knee, pelvis. Narrative Course Patient placed on monitor, IV established and blood obtained. Patient given 30 mg/kg normal saline bolus and empirically treated with vancomycin, Azactam, Flagyl given history of penicillin allergy. Twelve-lead EKG shows A. fib without notable ST or T-wave abnormalities, normal intervals. CBC, CMP, lipase , coags, lactate, troponin, urinalysis were notable for acute renal insufficiency with BUN 1279, creatinine 2.56. Lactate 3.3. Troponin slightly elevated 0.07 and CPK 756. Urine with rare bacteria. X-rays of the chest, pelvis, bilateral hips and right knee were obtained showing degenerative changes and previous arthroplasty but no acute fractures. Patient will be admitted for further management of sepsis and acute renal insufficiency. Critical Care Narrative Aggregate critical care time was 50 minutes. Time to perform other separately billable procedures was not included in the critical care time. My time did not include minutes spent treating any other patients simultaneously or on activities that did not directly contribute to the patient's treatment. The services I provided to this patient were to treat and/or prevent clinically significant deterioration that could result in: Cardiopulmonary decompensation, , disability I provided critical care services requiring my management, as noted below: Chart data review, documentation time, medication orders and management, vital sign assessments/reviewing monitor data, ordering and reviewing lab tests, ordering and interpreting/reviewing x-rays and diagnostic studies, care of the patient and discussion of the patient with the admitting physicians. Diagnosis Primary Impression: Sepsis Qualified Code: A41.9 - Sepsis, due to unspecified organism Additional Impression: ED (acute kidney injury) Admitting Information Admitting Physician Requests: Admit Sheila Zhu MD Oct 19, 2016 12:59
[2016-10-19] MEDS: RESP: ALBUTEROL 2.5 MG/IPRATROPIUM 0.5 MG NEB (SCH) NEB ×3 (13:09→19:14)
[2016-10-19] MEDS: SODIUM CHLOR 0.9% 1000 ML INJ 1,000 ML IV SCH ×2 (13:30→22:58)
--- NOTE | 2016-10-19 14:13 | HHI.HP ---
[facility] Service Family Medicine Primary Care Physician [facility] Admission Diagnosis sepsis, dehydration, lactic acidosis Diagnoses: (1) Sepsis (2) CHF (congestive heart failure) (3) COPD (chronic obstructive pulmonary disease) (4) RA (rheumatoid arthritis) (5) Atrial fibrillation (6) Fall (7) ED (acute kidney injury) (8) FEN/PPX International Travel<30 Days: No Contact w/Intl Traveler<30days: No Known Affected Area: No History of Present Illness 86 are old male presenting to the emergency department after a fall at home, shortness of breath, difficulty swallowing, and generalized weakness. He was recently hospitalized at [place] from 10/11 through 10/14 for a CHF exacerbation and acute COPD exacerbation. He was diuresed while in the hospital and discharged on Lasix for his CHF, for his COPD he was treated with Rocephin/ azithromycin 5 days as well as scheduled breathing treatments and a prednisone taper. He was evaluated by both speech therapy and physical therapy prior to discharge home on a regular diet without any assistance needed. Since he's been home, his states that he has been progressively getting weaker and has had difficulty eating/drinking due to difficulty swallowing. He was still taking his medications as prescribed until today. This morning, his found her on the living room floor after he apparently tripped and fell. He remembers a fall, states that he tripped over his pants that were around his ankles and did not hit his head or lose consciousness. Endorses shortness of breath associated with a nonproductive cough. He feels that he needs to cough something out but has not been able to cough anything up. He also feels generalized fatigue and weakness. He endorses difficulty with swallowing and endorses some generalized malaise. He denies chest pain or palpitations, denies lightheadedness or dizziness or vertigo, denies nausea or vomiting, denies constipation or diarrhea. Review of Systems Constitutional: COMPLAINS OF: Fatigue, Weight loss, DENIES: Diaphoretic episodes, Fever, Chills, Dizziness Eyes: DENIES: Blurred vision Respiratory: COMPLAINS OF: Cough, Wheezing, Shortness of breath, DENIES: Sputum production Cardiovascular: COMPLAINS OF: Dyspnea on Exertion, DENIES: Chest pain, Palpitations, Syncope, Lower Extremity Edema Gastrointestinal: COMPLAINS OF: Difficulty Swallowing, DENIES: Abdominal pain , Bloody stools, Constipation, Diarrhea, Nausea, Vomiting Musculoskeletal: DENIES: Joint pain Hematologic/lymphatic: DENIES: Bruising Neurologic: COMPLAINS OF: Poor Balance, DENIES: Abnormal gait, Headache, Localized weakness, Paresthesias, Seizures Psychiatric: COMPLAINS OF: Confusion Past Family Social History Past Medical History Rheumatoid arthritis atrial fibrillation CAD hyperlipidemia COPD TIA x2 hypertension Past Surgical History Inguinal Hernia repair CABG x 5 vessels 2002 Bilateral cataract removal Bladder surgery Renal cyst removal Bilateral hip replacement Allergies: Coded Allergies: Codeine (Verified Allergy, Severe, RASH & GI UPSET, 10/19/16) Horse Serum Proteins (Verified Allergy, Severe, 10/19/16) swelling at injection Quinine (Verified Allergy, Severe, 10/19/16) n/v Amoxicillin (Verified Allergy, Intermediate, GI UPSET, 10/19/16) Tetanus Toxoid (Verified Allergy, Intermediate, REDNESS AT INJECTION SITE , 10/19/16) Motrin (Verified Allergy, Mild, GI BLEEDING, 10/19/16) Nonsteroidal Anti-Inflammatory Agts (Verified Adverse Reaction, Intermediate, GI BLEEDING, 10/19/16) Family History Mother: Heart disease unspecified, of "fluid buildup" at 54 Father: unsure of medical problems, at 72 Social History Denies currently smoking, quit after after smoking 1PPD x 30 years He drinks a glass of red wine, about 4 oz a day and beer Retired from working in the [employer] field. Lives at home with his . Physical Exam Vital Signs Vital Signs Date Time Temp Pulse Resp B/P Pulse Ox O2 Delivery O2 Flow Rate FiO2 10/19/16 13:45 81 24 107/57 93 Nasal Cannula 4 10/19/16 12:19 88 18 111/62 94 Nasal Cannula 4 10/19/16 11:11 88 18 126/64 92 Nasal Cannula 4 10/19/16 10:30 102.5 92 16 116/62 97 Nasal Cannula 4 10/19/16 09:52 96 Nasal Cannula 4 10/19/16 09:52 96 Nasal Cannula 4 10/19/16 08:55 94 Nasal Cannula 4 10/19/16 08:50 103 22 100/56 94 Physical Exam GENERAL: Frail, elderly man, appears uncomfortable and is laboring in his breathing SKIN: multiple abrasions of upper and lower extremities of various stages of healing, stage 1 decubitus ulcer, fresh abrasion on right lower leg EYES: Pupils equal round and reactive. Extraocular motions intact. No scleral icterus. No injection or drainage. ENT: Mucous membranes appear dry, lips are cracked with dry blood on them, no obvious oropharyngeal erythema NECK: Trachea midline. No JVD or lymphadenopathy. Supple, nontender, no meningeal signs. CARDIOVASCULAR: Irregular rhythm, no murmurs appreciated RESPIRATORY: Increase work of breathing, supraclavicular retractions, audible wheezing appreciated without auscultation, some crackles are heard bilateral basis, productive cough GASTROINTESTINAL: Abdomen soft, non-tender, nondistended. MUSCULOSKELETAL: Extremities without clubbing, cyanosis, or edema. NEUROLOGICAL: Awake and alert. Normal speech. Laboratory Laboratory Tests Test 10/19/16 10/19/16 10/19/16 10/19/16 09:25 09:29 10:25 11:39 White Blood Count 10.6 Red Blood Count 3.75 Hemoglobin 12.9 Hematocrit 39.0 Mean Corpuscular Volume 104.1 Mean Corpuscular Hemoglobin 34.4 Mean Corpuscular Hemoglobin 33.0 Concent Red Cell Distribution Width 22.0 Platelet Count 281 Mean Platelet Volume 8.7 Neutrophils (%) (Auto) 87.3 Lymphocytes (%) (Auto) 1.2 Monocytes (%) (Auto) 10.8 Eosinophils (%) (Auto) 0.0 Basophils (%) (Auto) 0.7 Neutrophils # (Auto) 9.3 Lymphocytes # (Auto) 0.1 Monocytes # (Auto) 1.2 Eosinophils # (Auto) 0.0 Basophils # (Auto) 0.1 CBC Comment AUTO DIFF Differential Total Cells 100 Counted Neutrophils % (Manual) 84 Band Neutrophils % 6 Monocytes % 7 Neutrophils # (Manual) 9.9 Metamyelocytes 1 Myelocytes 2 Differential Comment FINAL DIFF MANUAL Platelet Estimate NORMAL Platelet Morphology Comment NORMAL Ovalocytes 1+ Prothrombin Time 15.5 Prothromb Time International 1.4 Ratio Activated Partial 36.7 Thromboplast Time Sodium Level 139 Potassium Level 4.7 Chloride Level 97 Carbon Dioxide Level 27.3 Anion Gap 15 Blood Urea Nitrogen 79 Creatinine 2.56 Estimat Glomerular Filtration 24 Rate Random Glucose 89 Calcium Level 10.2 Total Bilirubin 0.9 Aspartate Amino Transf 86 (AST/SGOT) Alanine Aminotransferase 59 (ALT/SGPT) Alkaline Phosphatase 113 Total Creatine Kinase 756 Creatine Kinase MB 0.8 Creatine Kinase MB % 0.1 Troponin I 0.07 B-Type Natriuretic Peptide 260 Total Protein 7.7 Albumin 2.8 Lipase 126 Lactic Acid Level 3.3 3.3 Urine Color YELLOW Urine Turbidity CLEAR Urine pH 5.5 Urine Specific [place] 1.013 Urine Protein TRACE Urine Glucose (UA) NEG Urine Ketones NEG Urine Occult Blood MOD Urine Nitrite NEG Urine Bilirubin NEG Urine Urobilinogen LESS THAN 2.0 Urine Leukocyte Esterase NEG Urine RBC 1 Urine WBC 1 Urine Squamous Epithelial <1 Cells Urine Bacteria RARE Urine Hyaline Casts 17 Urine Mucus FEW Microscopic Urinalysis Comment CATH-CULTURE IND Date/Time Procedure Status Source Growth 10/19/16 11:49 Gram Stain Received Sputum Expectorated Sputum Pending 10/19/16 11:49 Sputum Culture Received Sputum Expectorated Sputum Pending 10/19/16 10:25 Urine Culture Received Urine Catheterized Urine Pending 10/19/16 10:25 Legionella Antigen Received Urine Catheterized Urine Pending 10/19/16 10:25 Streptococcus pneumoniae Antigen (M Received Urine Catheterized Urine Pending 10/19/16 09:25 Aerobic Blood Culture Received Blood Peripheral Pending 10/19/16 09:25 Anaerobic Blood Culture Received Blood Peripheral Pending Result Diagram: 10/19/1692410/[id number]/16924 Imaging Last Impressions Hip and Pelvis X-Ray 10/19/16904 Signed Impressions: Service Date/Time: Wednesday, October 19, 2016 09:40 - CONCLUSION: 1. No acute fracture or malalignment. 2. Osteopenia. The patient is status post right hip arthroplasty. Juan Melgar MD Hip X-Ray 10/19/16904 Signed Impressions: Service Date/Time: Wednesday, October 19, 2016 09:33 - CONCLUSION: 1. No acute fracture or malalignment. 2. That is post bilateral hip arthroplasty. Juan Melgar MD Chest X-Ray 10/19/16904 Signed Impressions: Service Date/Time: Wednesday, October 19, 2016 10:18 - CONCLUSION: Scattered parenchymal densities, slightly more prominent. Dale Ba MD Knee X-Ray 10/19/16 0000 Signed Impressions: Service Date/Time: Wednesday, October 19, 2016 10:02 - CONCLUSION: 1. 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 2. Remote postsurgical changes. Juan Melgar MD Assessment and Plan Assessment and Plan 86 yo male with AMS meets SEPSIS criteria, lung is likely the source. Problem List: (1) Sepsis Status: Acute Plan: Patient presented febrile, with tachycardia, WBC 106 with 84% PMN, lactic aid 3.3. - Likely source of hospital-acquired versus aspiration pneumonia, given new findings on chest x-ray and difficulty with swallowing - Repeat lactic acid pending Medications: Vancomycin 1 g IV every 24 hours with vancomycin consult Flagyl 500 mg IV every 8 hours Aztreonam 1 g IV every 8 hours IV fluids: Normal saline at 120 mL/hour - Received normal saline 1 L bolus 3 in the emergency department Blood cultures drawn and pending Urine cultures drawn and pending Sputum culture pending Urine Legionella and pneumococcal antigen ordered Chest PT Continue Symbicort 1 puff daily DuoNeb's every 4 hours scheduled Albuterol nebulizers every 2 hours as needed (2) ED (acute kidney injury) Status: Acute Plan: Cr during last admission 1.2, today is 2.56. Likely a result of increased lasix dose and dehydration. - renally dose all meds & avoid nephrotoxic agents - IVF - monitor closely (3) COPD (chronic obstructive pulmonary disease) Status: Chronic Plan: Med hx significant for COPD, recently treated for exacerbation Plan - albuterol and duonebs alternating - continue home oxygen 4 L maintain sats 88-92% - was on prednisone taper, resume 10 mg PO daily (4) CHF (congestive heart failure) Status: Chronic Plan: Patient with a reported hx of CHF. ECHO done in September 2016 shows normal systolic function EF 55-60%. Patient appears to be dehydrated with acute kidney injury and creatinine of 2.56 - Hold home Lasix at this time - Obtain BNP - Monitor fluid status closely given sepsis protocol - Monitor daily labs Continue home metoprolol 50 mg by mouth daily We will hold home lisinopril 20 mg by mouth twice a day given acute kidney injury and low blood pressures We will hold Lasix given presentation with dehydration (5) Fall Status: Acute Plan: Patient had sounds like a mechanical fall. His CPK is 756. Knee, hip, and pelvis X-ray are negative - Repeat CPK - IV hydration - Physical therapy consulted (6) RA (rheumatoid arthritis) Status: Chronic Plan: Continue home methotrexate (7) Atrial fibrillation Status: Chronic Plan: Continue home eliquis Continue rate control with metoprolol (8) FEN/PPX Status: Acute Plan: Fluids: NS @ 120 cc/hr Electrolytes: continue KCl 20 meq daily Nutrition: NPO until bedside swallow GI prophylaxis: protonix while on steroids DVT prophylaxis: PT eval Physician Certification 2 Midnight Certification Type: Admission for Inpatient Services Order for Inpatient Services The services are ordered in accordance with Medicare regulations or non- Medicare payer requirements, as applicable. In the case of services not specified as inpatient-only, they are appropriately provided as inpatient services in accordance with the 2-midnight benchmark. Estimated LOS (days): 2 2 days is the estimated time the patient will need to remain in the hospital, assuming treatment plan goals are met and no additional complications. Post-Hospital Plan: Not yet determined Problem Qualifiers (1) Sepsis: Qualified Code: A41.9 - Sepsis, due to unspecified organism Alexandro Reed MD Oct 19, 2016 14:13
[2016-10-19 17:39] LABS: BLOOD GAS BASE EXCESS -4.5 mmol/L (-2-2); BLOOD GAS CARBOXYHEMOGLOBIN 1.7 % (0-4); BLOOD GAS HCO3 19 mmol/L (22-26); BLOOD GAS METHEMOGLOBIN 1.3 % (0-2); BLOOD GAS O2 HGB SATURATION 89 % (90-100); BLOOD GAS OXYGEN CONTENT 14.5 Vol % (12.0-20.0); BLOOD GAS PCO2 26 mmHg (38-42); BLOOD GAS PO2 63 mmHg (61-120); BLOOD GAS TOTAL HGB 11.7 G/DL (12.0-16.0); TEMP CORR TO 98.6
[2016-10-19 17:40] LABS: CRITICAL VALUE YES; DRAW SITE RT BRACHIAL; LITER FLOW 4 L/M; NUMBER OF ARTERIAL PUNCTURES 1; OXYGEN DEVICE NASAL CANNULA; STAT NO; ULNAR PULSE PRESENT
[2016-10-19 19:04] LABS: AUTOMATED NEUTROPHIL # 7.3 TH/MM3 (1.8-7.7); BASOPHIL % 0.1 % (0.0-2.0); HEMATOCRIT 34.3 % (39.0-51.0); LYMPH % 1.6 % (9.0-44.0); LYMPHOCYTE # 0.1 TH/MM3 (1.0-4.8); MEAN CELL VOLUME 105.1 FL (80.0-100.0); MEAN CORPUSCULAR HEMOGLOBIN 34.5 PG (27.0-34.0); MEAN CORPUSCULAR HGB CONC 32.8 % (32.0-36.0); MONO % 8.1 % (0.0-8.0); NEUT % 90.2 % (16.0-70.0); PLATELET COUNT 219 TH/MM3 (150-450); RED BLOOD COUNT 3.27 MIL/MM3 (4.50-5.90); RED CELL DISTRIBUTION WIDTH 22.1 % (11.6-17.2)
[2016-10-19 19:25] LABS: HEMO FLAGS AUTO DIFF
[2016-10-19 19:30] LABS: ALKALINE PHOSPHATASE 135 U/L (45-117); ALT (GPT) 86 U/L (12-78); ANION GAP 12 MEQ/L (5-15); AST (GOT) 170 U/L (15-37); BICARBONATE 21.1 MEQ/L (21.0-32.0); BLOOD UREA NITROGEN 62 MG/DL (7-18); CHLORIDE 111 MEQ/L (98-107); CREATINE KINASE 1166 U/L (39-308); GLOMERULAR FILTRATION RATE 37 ML/MIN (>89); POTASSIUM 3.8 MEQ/L (3.5-5.1); SODIUM (NA) 144 MEQ/L (136-145); TOTAL BILIRUBIN ADULT 0.7 MG/DL (0.2-1.0)
[2016-10-19 20:01] LABS: CKMB 1.8 NG/ML (0.5-3.6)
[2016-10-19] MEDS: AZTREONAM INJ 500 MG in SODIUM CHLORIDE 0.9% INJ 100 ML IV SCH (20:52)
[2016-10-19] MEDS: APIXABAN 5 MG TABLET PO SCH (20:52)
[2016-10-19] MEDS: DONEPEZIL HCL 5 MG TAB PO SCH (20:52)
[2016-10-19] MEDS: SODIUM CHLORIDE 0.9% FLUSH 10 ML FLUSH IV FLUSH SCH (21:00)
[2016-10-19] MEDS ORDERED: FOLIC ACID 1 MG TAB PO SCH (21:00)
[2016-10-19] MEDS ORDERED: LISINOPRIL 20 MG TAB PO SCH (21:00)
[2016-10-19 21:29] LABS: BANDS 10 % (0-6); METAMYELOCYTES 1 % (0-1); NEUTROPHIL # MANUAL DIFF 7.8 TH/MM3 (1.8-7.7); POLYS (SEG NEUTROPHILS) 87 % (16-70); WBC DIFF SAMPLE 100
[2016-10-19 21:30] LABS: OVALOCYTES 2+ (NORMAL); PLATELET ESTIMATE SMEAR NORMAL (NORMAL); PLATELET MORPHOLOGY NORMAL (NORMAL); SCAN/DIFF FINAL DIFF MANUAL; SPHEROCYTES 1+ (NORMAL)
[2016-10-20] VITALS (13 sets, daily range): BP systolic 101–137; BP diastolic 56–70; PULSE 92–120; RESP 18–32; TEMP 96.1–98.2; O2SAT 91–95
[2016-10-20] MEDS: RESP: ALBUTEROL 2.5 MG/IPRATROPIUM 0.5 MG NEB (SCH) NEB ×6 (00:18→23:59)
[2016-10-20] MEDS ORDERED: ACETAMINOPHEN 1000 MG/100 ML VIAL IV ONE (00:45)
[2016-10-20] MEDS ORDERED: LORazepam 0.5 MG TAB PO ONE (05:00)
[2016-10-20] MEDS: RESP: ALBUTEROL 2.5 MG/3 ML NEB (PRN) NEB ×2 (05:19→10:49)
[2016-10-20] MEDS: AZTREONAM INJ 500 MG in SODIUM CHLORIDE 0.9% INJ 100 ML IV SCH ×3 (06:47→22:00)
--- NOTE | 2016-10-20 07:16 | HHI.FPPN ---
Subjective Remarks Patient seen and examined this am. Required venturi mask this am. Feels SOB this am and that he's "not getting enough air in." Nurse reported overnight he stated he "didn't want all this." She asked if we could re-address goals. Patient kept taking venturi mask off. And is also complaining of some low back pain. I obtained a pulse ox and patient was saturating at 100%. Placed the patient on nasal canula, oxygen level did not increase past 77%. Venturi mask was placed back on. Had an appointment scheduled today with Dr. Perry. Nurse paged resident soon after leaving floor stating that the patient was endorsing chest pain. She stated that he had said earlier, "I want to ." ( Pebbles Rowland MD R3) Objective Vitals Vital Signs Date Time Temp Pulse Resp B/P Pulse Ox O2 Delivery O2 Flow Rate FiO2 10/20/16 05:24 93 Venturi Mask 35 10/20/16 04:44 94 Venturi Mask 6.00 35 10/20/16 04:00 96.1 105 22 103/62 95 10/20/16 00:31 95 Venturi Mask 31 10/20/16 00:21 91 Nasal Cannula 4.00 10/20/16 00:00 97.1 108 18 126/70 93 10/19/16 20:14 83 10/19/16 20:00 96.6 60 18 98/53 92 10/19/16 17:15 102.5 129 34 125/73 10/19/16 17:12 Nasal Cannula 4.00 10/19/16 15:00 80 30 139/64 97 Nasal Cannula 4 10/19/16 14:06 98.5 10/19/16 13:45 81 24 107/57 93 Nasal Cannula 4 10/19/16 12:19 88 26 111/62 94 Nasal Cannula 4 10/19/16 11:11 88 18 126/64 92 Nasal Cannula 4 10/19/16 10:30 102.5 92 16 116/62 97 Nasal Cannula 4 10/19/16 09:52 96 Nasal Cannula 4 10/19/16 09:52 96 Nasal Cannula 4 10/19/16 08:55 94 Nasal Cannula 4 10/19/16 08:50 103 22 100/56 94 (Pebbles Rowland MD R3) Result Diagram: 10/19/16 1815 10/19/16 1815 Imaging Last Impressions Chest X-Ray 10/19/16 1150 Signed Impressions: Service Date/Time: Wednesday, October 19, 2016 12:25 - CONCLUSION: Scattered interstitial densities could be interstitial edema or interstitial infiltrate. Dale Ba MD Hip and Pelvis X-Ray 10/19/16 0905 Signed Impressions: Service Date/Time: Wednesday, October 19, 2016 09:40 - CONCLUSION: 1. No acute fracture or malalignment. 2. Osteopenia. The patient is status post right hip arthroplasty. Juan Melgar MD Hip X-Ray 10/19/16 0905 Signed Impressions: Service Date/Time: Wednesday, October 19, 2016 09:33 - CONCLUSION: 1. No acute fracture or malalignment. 2. That is post bilateral hip arthroplasty. Juan Melgar MD Knee X-Ray 10/19/16 0000 Signed Impressions: Service Date/Time: Wednesday, October 19, 2016 10:02 - CONCLUSION: 1. 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 2. Remote postsurgical changes. Jaun Melgar MD Objective Remarks GENERAL: elderly man, eating breakfast, appears SOB SKIN: multiple abrasions of upper and lower extremities of various stages of healing, stage 1 decubitus ulcer, fresh abrasion on right lower leg HEAD: Atraumatic. Normocephalic. No temporal or scalp tenderness. EYES: Pupils equal round and reactive. Extraocular motions intact. No scleral icterus. No injection or drainage. ENT: Nose without bleeding, purulent drainage or septal hematoma. Airway patent. NECK: Trachea midline. No JVD or lymphadenopathy. Supple, nontender, no meningeal signs. CARDIOVASCULAR: Irregular rhythm, no murmurs appreciated RESPIRATORY: Increase work of breathing, supraclavicular retractions, no wheezing appreciated with auscultation, venturi mask is in place. GASTROINTESTINAL: Abdomen soft, non-tender, nondistended. No hepato-splenomegaly , or palpable masses. No guarding. MUSCULOSKELETAL: Extremities without clubbing, cyanosis, or edema. No joint tenderness, effusion, or edema noted. No calf tenderness. NEUROLOGICAL: Awake and alert. Motor and sensory grossly within normal limits. Normal speech. (Pebbles Rowland MD R3) A/P Assessment and Plan 86 yo male COPD and A-Fib, with significant SOB currently being treated for HCAP /Aspiration PNA. Discharge Planning D/C pending improvement in clinical status. Will discuss with Dr. Reed (Pebbles Rowland MD R3) Attending Attestation Patient examined and case discussed with resident physicians I have read the above note and agree with the assessment/plan is discussed with me I was involved in all medical decision making for this patient Alexandro Reed M.D. (Alexandro Reed MD) Problem List: (1) SOB (shortness of breath) Status: Acute Plan: SOB seems unchanged from yesterday. He also remains tachycardic, does have A- Fib. - respiratory therapy was called to give patient a breathing treatment - V/Q scan ordered to r/o PE (avoid CTA given renal insufficiency) - Dr. Orlando Perry also consulted, patients cavalry officer to see if there is anything else he can add - EKGs reviewed and appear unchanged from previous hospitalization - Due to complaint of CP to nurse, will obtain EKG and troponin now (trops did trend up some overnight 0.07, 0.19, 0.23) (2) Sepsis Status: Acute Plan: Patient presented febrile, with tachycardia, WBC 106 with 84% PMN, lactic aid 3.3. This seems to be improving, he has been aggressively resuscitated with fluids. He is no longer febrile and his WBC is improving. Patient is being treated for HCAP and Aspiration PNA. Plan: - Blood cultures negative x1 days - urine culture pending - sputum culture obtained - Renally dosed: aztreonam 1g q8, flagyl 500 mg q8, Vancomycin 1g (pharmacy consult) - urine legionella and pneumococcal ordered - Chest PT (3) CHF (congestive heart failure) Status: Chronic Plan: Patient with a reported hx of CHF. ECHO done in September 2016 shows normal systolic function EF 55-60%. The patient was recently treat for CHF exacerbation and discharged on lasix 40 mg PO BID, regular home dose 40 mg PO daily. Patient presented volume deplete and now with acute kidney injury. Plan - HOLD lasix - Continue home metoprolol 50 mg daily, - HOLD lisinopril 20 mg PO BID - BNP 260 (4) COPD (chronic obstructive pulmonary disease) Status: Chronic Plan: Med hx significant for COPD, recently treated for exacerbation Plan - albuterol and duonebs alternating - continue home oxygen 4 L maintain sats 88-92% - was on prednisone taper, resume 10 mg PO daily - Patients cavalry officer consulted (5) RA (rheumatoid arthritis) Status: Chronic Plan: Continue home methotrexate (6) Atrial fibrillation Status: Chronic Plan: Continue home eliquis (7) Fall Status: Acute Plan: Patient had sounds like a mechanical fall. His CPK is 756. Knee, hip, and pelvis X-ray are negative - Repeat CPK - IV hydration (8) ED (acute kidney injury) Status: Acute Plan: Cr during last admission 1.2, today is 2.56. Likely a result of increased lasix dose and dehydration. - renally dose all meds & avoid nephrotoxic agents - IVF - monitor closely (9) FEN/PPX Status: Acute Plan: Fluids: HLIV Electrolytes: continue KCl 20 meq daily Nutrition: Per speech puree diet with all liquids thickened to nectar consistency GI prophylaxis: protonix while on steroids DVT prophylaxis: currently on eliquis PT eval (Pebbles Rowland MD R3) Problem Qualifiers (1) Sepsis: Qualified Code: A41.9 - Sepsis, due to unspecified organism Pebbles Rowland MD R3 Oct 20, 2016 07:16 Alexandro Reed MD Oct 20, 2016 16:18
[2016-10-20 07:23] LABS: AUTOMATED NEUTROPHIL # 8.8 TH/MM3 (1.8-7.7); BASOPHIL % 0.3 % (0.0-2.0); HEMATOCRIT 35.6 % (39.0-51.0); LYMPH % 1.3 % (9.0-44.0); LYMPHOCYTE # 0.1 TH/MM3 (1.0-4.8); MEAN CELL VOLUME 105.7 FL (80.0-100.0); MEAN CORPUSCULAR HEMOGLOBIN 35.3 PG (27.0-34.0); MEAN CORPUSCULAR HGB CONC 33.4 % (32.0-36.0); MONO % 4.8 % (0.0-8.0); NEUT % 93.6 % (16.0-70.0); PLATELET COUNT 206 TH/MM3 (150-450); RED BLOOD COUNT 3.37 MIL/MM3 (4.50-5.90); RED CELL DISTRIBUTION WIDTH 22.5 % (11.6-17.2); WHITE BLOOD COUNT 9.4 TH/MM3 (4.0-11.0)
[2016-10-20 07:30] LABS: HEMO FLAGS AUTO DIFF
[2016-10-20 08:03] LABS: ALKALINE PHOSPHATASE 115 U/L (45-117); ALT (GPT) 83 U/L (12-78); ANION GAP 12 MEQ/L (5-15); AST (GOT) 165 U/L (15-37); BICARBONATE 20.6 MEQ/L (21.0-32.0); BLOOD UREA NITROGEN 50 MG/DL (7-18); CHLORIDE 111 MEQ/L (98-107); GLOMERULAR FILTRATION RATE 42 ML/MIN (>89); POTASSIUM 3.4 MEQ/L (3.5-5.1); SODIUM (NA) 144 MEQ/L (136-145); TOTAL BILIRUBIN ADULT 0.8 MG/DL (0.2-1.0)
[2016-10-20 08:25] LABS: BANDS 25 % (0-6); METAMYELOCYTES 4 % (0-1); MYELOCYTES 1 % (0-0); NEUTROPHIL # MANUAL DIFF 9.3 TH/MM3 (1.8-7.7); POLYS (SEG NEUTROPHILS) 69 % (16-70); WBC DIFF SAMPLE 100
[2016-10-20 08:26] LABS: KERATOCYTES OCC (NORMAL); OVALOCYTES 1+ (NORMAL); PLATELET ESTIMATE SMEAR NORMAL (NORMAL); PLATELET MORPHOLOGY NORMAL (NORMAL); SCAN/DIFF FINAL DIFF MANUAL
[2016-10-20] MEDS: SODIUM CHLORIDE 0.9% FLUSH 10 ML FLUSH IV FLUSH SCH ×2 (08:43→21:05)
[2016-10-20] MEDS ORDERED: CYANOCOBALAMIN PO SCH (09:00)
[2016-10-20] MEDS: PANTOPRAZOLE SOD 40 MG DELAYED RELEASE TAB PO SCH (09:24)
[2016-10-20] MEDS: APIXABAN 5 MG TABLET PO SCH ×2 (09:24→21:04)
[2016-10-20] MEDS: MULTIVITAMIN TAB PO SCH (09:24)
[2016-10-20] MEDS: predniSONE 10 MG TAB PO SCH (09:24)
[2016-10-20] MEDS: CHOLECALCIFEROL (VIT D3) 1000 UNIT TAB PO SCH (09:24)
[2016-10-20] MEDS: METOPROLOL TARTRATE 50 MG TAB PO SCH (09:24)
[2016-10-20] MEDS: POTASSIUM CHLORIDE 20 MEQ CONTROLLED RELEASE TAB PO SCH (09:25)
[2016-10-20] MEDS: POTASSIUM CHLOR 20 MEQ PREMIX 100 ML IV SCH ×2 (10:01→15:06)
[2016-10-20] MEDS: BUDESONIDE-FORMOTEROL 80/4.5 MCG INHALER INH SCH (10:30)
[2016-10-20] MEDS ORDERED: MORPHINE SULFATE 4 MG/ML INJ IV PRN (11:15)
[2016-10-20] MEDS: VANCOMYCIN INJ 1,000 MG in SODIUM CHLOR 0.9% 250 ML INJ 250 ML IV SCH (12:09)
[2016-10-20] MEDS: ACETAMINOPHEN 325 MG TAB PO PRN ×2 (12:09→21:05)
--- NOTE | 2016-10-20 13:08 | EKG ---
Date Performed: 10/19/2016 Time Performed: 10:18:43 PTAGE: 86 years EKG: ATRIAL FIBRILLATION BORDERLINE LEFT AXIS DEVIATION NONSPECIFIC INTRAVENTRICULAR CONDUCTION DELAY NONSPECIFIC T-WAVE ABNORMALITY ABNORMAL ECG PREVIOUS TRACING : 10/11/2016 21.24 No significant change from previous tracing noted. DOCTOR: Alfonso Gallardo Interpretating Date/Time 10/20/2016 13:06:20
--- NOTE | 2016-10-20 14:27 | RADRPT ---
EXAM DATE/TIME: 10/20/2016 13:22 [facility] COMPARISON: CHEST PA & LAT, October 19, 2016, 12:25. INDICATIONS : Shortness of breath. Fall with generalized weakness. DOSE: 8.6 mCi Tc99m MAA IV 0.7 mCi Tc99m DTPA aerosol MEDICAL HISTORY : Cardiovascular disease. Hypertension. Chronic obstructive pulmonary disease. SURGICAL HISTORY : Inguinal hernia repair. CABG ENCOUNTER: Initial ACUITY: 1 day PAIN SCALE: 0/10 LOCATION: chest TECHNIQUE: Following five minutes of tidal breathing of DTPA aerosol, planar images of the lungs were performed in eight projections. The patient was then injected with MAA, and eight-view perfusion scan was perf ormed. FINDINGS: The multiple areas of peripheral ventilatory defects bilaterally in the perfusion appears intact bila terally. CONCLUSION: Bilateral ventilatory defects without evidence for PE. Yao Perez MD on October 20, 2016 at 14:25 Board Certified Radiologist. This report was verified electronically.
--- NOTE | 2016-10-20 15:10 | PD.CONS ---
Consult Service Palliative Care . Consult Requested By Dr. Rowland . Primary Care Physician [facility] . Reason for Consultation a. To assist with evaluation and management of symptoms including: dyspnea, restlessness. b. To assist medical decision maker(s) with: better understanding of current medical conditions; weighing benefits/burdens of medical treatment options; making medical treatment decisions. . (FREDERICK YIN) HPI History of Present Illness Mr. Joe is an 86 year old male with past medical history of COPD on oxygen 4 LPM at home, CAD, CHF, atrial fibrillation, HTN, TIAs x 2 in past and rheumatoid arthritis. Patient was hospitalized at [place] from 10/11 - 10/14 for CHF and acute COPD exacerbation. He was diuresed while in the hospital and discharged on Lasix for his CHF, for his COPD he was treated with Rocephin/ azithromycin 5 days as well as scheduled breathing treatments and a prednisone taper. He was evaluated by both speech therapy and physical therapy prior to discharge home on a regular diet without any assistance needed. Upon DC he returned home, his reported progressive weakness and difficulty eating/ drinking due to difficulty swallowing. Patient presented to [facility] Emergency room on 10/19/16 after a fall. found patient on the floor of the living room. She felt that patient may have gotten up to use the bathroom and tripped on his pants that were too big secondary to recent weight loss. Initial evaluation revealed: * vital signs 10.0 2.5, pulse 92, respirations 16, BP 116/62 * WBC 10.6, Hemoccult and 12.9, hematocrit 39, platelet count 281, neutrophil 87.3% * sodium 139, potassium 4.7, chloride 97, carbon dioxide 27.3, BUN 79, creatinine 2.56, GFR 24, glucose 89 * total bilirubin 0.9, AST 86, ALT 59, alkaline phosphatase 113 * total creatine kinase 113, CK MB 0.8, troponin 0.07 * total protein 7.7, albumin 2.8 * Lipase 126 * lactic acid 3.3 * knee x-ray extensive osteoarthritic change, postsurgical changes. * Hip/pelvis x-ray no acute fracture or malalignment, osteopenia, status post right hip arthroplasty. * Chest x-ray scattered parenchymal densities, slightly more prominent. Patient is admitted with sepsis, pneumonia, dehydration, COPD. Patient has persistent/worsening shortness of breath. Notes indicate patient reported today feeling like he's "not getting enough air and didn't want all of this." He is also reporting new chest pain, troponin 0.19, 0.23 sequentially. , Cardiology, Dr. Haley and cardiology Dr. Ponce have been consulted, consults pending. Palliative care was consulted to assist with further clarification of treatment goals. . Function/Cognitive Trajectory Patient has had ongoing trajectory of decline over the past year. He has had 8 emergency room visits or hospitalizations in the past year. He has been losing weight, decreased appetite, difficulty swallowing. He has had falls. Increasing shortness of breath. Difficulty during for himself now requiring more assistance with ADLs. Lives a bed to chair existence. . (FREDERICK YIN) Review of Systems Constitutional: COMPLAINS OF: Fatigue, Fever, Weight loss, Change in appetite ( decreased), Generalized weakness Respiratory: COMPLAINS OF: Cough, Shortness of breath Cardiovascular: COMPLAINS OF: Chest pain, Dyspnea on Exertion, Orthopnea Musculoskeletal: COMPLAINS OF: Joint pain, Joint Swelling Integumentary: COMPLAINS OF: Nail changes Hematologic/Lymphatics: COMPLAINS OF: Bruising Psychiatric: COMPLAINS OF: Anxiety Other ROS: Restlessness (FREDERICK YIN) Past Family Social History Coded Allergies: Codeine (Verified Allergy, Severe, RASH & GI UPSET, 10/19/16) Horse Serum Proteins (Verified Allergy, Severe, 10/19/16) swelling at injection Quinine (Verified Allergy, Severe, 10/19/16) n/v Amoxicillin (Verified Allergy, Intermediate, GI UPSET, 10/19/16) Tetanus Toxoid (Verified Allergy, Intermediate, REDNESS AT INJECTION SITE , 10/19/16) Motrin (Verified Allergy, Mild, GI BLEEDING, 10/19/16) Nonsteroidal Anti-Inflammatory Agts (Verified Adverse Reaction, Intermediate, GI BLEEDING, 10/19/16) Reported Medications Active Ordered Medications Lasix (Furosemide) 40 Mg Tab 40 Mg PO BID Azithromycin 250 Mg Tab 500 Mg PO DAILY Levaquin (Levofloxacin) 750 Mg Tab 750 Mg PO DAILY Prednisone 10 Mg Tab 10 Mg PO DAILY Take 40mg for 3 days Take 20mg for 3 days Take 10mg for 3 days Take 5mg for 3 days Pantoprazole (Pantoprazole Sodium) 40 Mg Tab 40 Mg PO DAILY Potassium Chloride Liq (Potassium Chloride) 20 Meq/15 Ml Soln 20 Meq PO DAILY 30 Days Proventil Hfa 6.7 GM Inh (Albuterol Sulfate) 90 Mcg/Act Aer 2 Puff INH Q4-6H PRN [Oxygen] 4 Liter INH DAILY Albuterol Neb (Albuterol Sulfate) 2.5 Mg/3 Ml Neb 2.5 Mg NEB Q4HR [Fish Oil 360MG] 360 Mg PO BID Multi Vitamin (Multiple Vitamin) 1 Tab Tab 1 Tab PO DAILY Vitamin D3 (Cholecalciferol) 2,000 Unit Tab 2,000 Units PO DAILY Vitamin B12 (Cyanocobalamin) Unknown Strength Tab 1 Tab PO DAILY Symbicort Inh (Budesonide/Formoterol Fumarate) Unknown Strength Aero 1 Puff INH DAILY Lisinopril 20 Mg Tab 20 Mg PO BID Methotrexate 2.5 Mg Tab 2.5 Mg PO MOTH Take 4 tablets (10mg) on Mondays and take 3 tablets (7.5mg) on Metoprolol Tartrate 100 Mg Tab 50 Mg PO DAILY Donepezil 10 Mg Tab 10 Mg PO HS Eliquis (Apixaban) 5 Mg Tab 5 Mg PO BID Folic Acid 5 Mg Cap 5 Mg PO BID . Current Medications Medications (Trade) Dose Ordered Sig/Misti Route Start Time Stop Time Status Last Admin (NS Flush) 2 ml UNSCH PRN IV FLUSH 10/19/16 12:00 (NS Flush) 2 ml BID IV FLUSH 10/19/16 21:00 (Tylenol) 650 mg Q4H PRN PO 10/19/16 12:00 10/19/16 17:33 (Zofran Inj) 4 mg Q6H PRN IVP 10/19/16 12:00 (Narcan Inj) 0.4 mg UNSCH PRN IV 10/19/16 12:00 (Eliquis) 5 mg BID PO 10/19/16 21:00 10/20/16 09:24 (Vitamin D3) 2,000 units DAILY PO 10/20/16 09:00 10/20/16 09:24 (Aricept) 10 mg HS PO 10/19/16 21:00 10/19/16 20:52 (Folate) 5 mg BID PO 10/19/16 21:00 Hold (Prinivil) 20 mg BID PO 10/19/16 21:00 Hold (Rheumatrex) 2.5 mg MoTh@09 PO 10/19/16 12:00 10/19/16 13:29 (Lopressor) 50 mg DAILY PO 10/20/16 09:00 10/20/16 09:24 (Theragran) 1 tab DAILY PO 10/20/16 09:00 10/20/16 09:24 (Protonix) 40 mg DAILY PO 10/20/16 09:00 10/20/16 09:24 (Symbicort 80-4.5 Mcg Inh) 1 puff DAILY INH 10/20/16 09:00 10/20/16 10:30 Non-Formulary Medication 1 tab DAILY PO 10/20/16 09:00 Hold Potassium Chloride 20 meq 20 meq DAILY PO 10/20/16 09:00 10/20/16 09:25 Vancomycin HCl 1000 mg/Sodium Chloride 250 ml @ 250 mls/hr Q24H IV 10/20/16 12:00 10/20/16 12:09 Metronidazole 100 ml @ 100 mls/hr Q8H IV 10/20/16 18:00 (Azactam Inj/NS Inj) 100 ml @ 200 mls/hr Q8H IV 10/19/16 22:00 10/20/16 14:06 (Deltasone) 10 mg DAILY PO 10/20/16 09:00 10/20/16 09:24 (Tylenol) 325 mg Q4H PRN PO 10/20/16 11:00 10/20/16 12:09 . Substance Use Denies currently smoking, quit 1968 after smoking 1PPD x 30 years He drinks a glass of red wine, about 4 oz a day and beer Illicit Drugs: denies . (FREDERICK YIN) Past Medical History Rheumatoid Arthritis Atrial Fibrillation CAD Hyperlipidemia COPD TIA x2 Hypertension . Past Surgical History Inguinal Hernia repair CABG x 5 vessels 2001 Bilateral cataract removal Bladder surgery Renal cyst removal Bilateral hip replacement . Family History Mother, age 54, heart disease and "fluid buildup" Father, age 72, unknown cause Sister, , bone CA Brother, , lung CA and CHF . Psychosocial History to of 62 years. Lives at home with her. Three children, 2 locally in [facility], 1 in [place]. 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 Substance Use Denies currently smoking, quit 1969 after smoking 1PPD x 30 years He drinks a glass of red wine, about 4 oz a day and beer Illicit Drugs: denies . Spiritual/Cultural Factors Synagogue. . (Marian Richter RN RADIATION ONCOLOGY, MANAGER PROGRAMMING) Today's verbally stated goals: Patient desires NO CODE (DNR/DNI). He is considering continued aggressive care versus transition to comfort focused care with hospice support. . Family/friends goals: Spoke with patient, and son. Family would like to discuss further continued aggressive care versus transition to comfort focused care with hospice support. Family supports patient's decision for NO CODE and seems to be seriously considering transition to comfort. They are not yet ready to make this decision. . Ethical and Legal Issues Patient is incapacitated to make his own health care decisions. Living Will on file, does not designate a healthcare surrogate. According to [place] statutes , should he lose capacity, health care proxy decision-making would fall to his spouse. . (FREDERICK YIN) Living Will: Copy in medical record Date completed: 11-25-2012 . Documented care wishes: Living will is a typical living will stating Mr. Joe directs that life- prolonging measures be withheld or withdrawn when the attending and another consulting physician have determined there is no reasonable medical probability of recovery from a terminal condition, end-stage condition, or is in a persistent vegetative state. . (Marian Richter RN RADIATION ONCOLOGY, MANAGER PROGRAMMING) Physical Exam Vital Signs Date Time Temp Pulse Resp B/P Pulse Ox O2 Delivery O2 Flow Rate FiO2 10/20/16 12:00 98.1 100 32 101/57 93 10/20/16 08:00 92 Venturi Mask 35 10/20/16 08:00 96.7 102 30 112/66 92 10/20/16 05:24 93 Venturi Mask 35 10/20/16 04:44 94 Venturi Mask 6.00 35 10/20/16 04:00 96.1 105 22 103/62 95 10/20/16 00:31 95 Venturi Mask 31 10/20/16 00:21 91 Nasal Cannula 4.00 10/20/16 00:00 97.1 108 18 126/70 93 10/19/16 20:14 83 10/19/16 20:00 96.6 60 18 98/53 92 10/19/16 17:15 102.5 129 34 125/73 10/19/16 17:12 Nasal Cannula 4.00 10/19/16 10/20/16 19:00 07:00 # Voids 3 # Bowel Movements 2 Exam CONSTITUTIONAL/GENERAL: This is an elderly frail gentlemen, with labored respirations at rest. TUBES/LINES/DRAINS: Venturi mask, PIV. SKIN: No jaundice, rashes, or lesions. Ecchymoses on upper extremities. Right lower extremity abrasion. Skin temperature appropriate. Not diaphoretic. HEAD: Atraumatic. Normocephalic. EYES: Pupils equal and round and reactive. Extraocular motions intact. No scleral icterus. No injection or drainage. Fundi not examined. ENT: Hearing grossly normal. Nose without bleeding or purulent drainage. Difficult to visualize due to oxygen mask, restlessness. NECK: Trachea midline. CARDIOVASCULAR: tachycardic, irregular. RESPIRATORY/CHEST: respirations labored at rest. Tachypneic, supraclavicular retractions. Right lower lung crackles, left with course breath sounds. GASTROINTESTINAL: Abdomen soft, non-tender, nondistended. No guarding. Bowel sounds present. GENITOURINARY: Without palpable bladder distension. Batista catheter in place. MUSCULOSKELETAL: Extremities without clubbing, cyanosis, or edema. No joint tenderness or effusion noted. No calf tenderness. No mottling or clubbing. LYMPHATICS: No palpable cervical or supraclavicular adenopathy. NEUROLOGICAL: Awakens, lethargic. Follows commands. Cognitively sharp. Moves all extremities. Generalized weakness. PSYCHIATRIC: restless. . (FREDERICK YIN-Allyson) Diagnostic Tests Laboratory Laboratory Tests Test 10/19/16 10/19/16 10/19/16 10/19/16 09:25 09:29 10:25 11:39 White Blood Count 10.6 TH/MM3 (4.0-11.0) Red Blood Count 3.75 MIL/MM3 (4.50-5.90) Hemoglobin 12.9 GM/DL (13.0-17.0) Hematocrit 39.0 % (39.0-51.0) Mean Corpuscular Volume 104.1 FL (80.0-100.0) Mean Corpuscular Hemoglobin 34.4 PG (27.0-34.0) Mean Corpuscular Hemoglobin 33.0 % Concent (32.0-36.0) Red Cell Distribution Width 22.0 % (11.6-17.2) Platelet Count 281 TH/MM3 (150-450) Mean Platelet Volume 8.7 FL (7.0-11.0) Neutrophils (%) (Auto) 87.3 % (16.0-70.0) Lymphocytes (%) (Auto) 1.2 % (9.0-44.0) Monocytes (%) (Auto) 10.8 % (0.0-8.0) Eosinophils (%) (Auto) 0.0 % (0.0-4.0) Basophils (%) (Auto) 0.7 % (0.0-2.0) Neutrophils # (Auto) 9.3 TH/MM3 (1.8-7.7) Lymphocytes # (Auto) 0.1 TH/MM3 (1.0-4.8) Monocytes # (Auto) 1.2 TH/MM3 (0-0.9) Eosinophils # (Auto) 0.0 TH/MM3 (0-0.4) Basophils # (Auto) 0.1 TH/MM3 (0-0.2) CBC Comment AUTO DIFF Differential Total Cells 100 Counted Neutrophils % (Manual) 84 % (16-70) Band Neutrophils % 6 % (0-6) Monocytes % 7 % (0-8) Neutrophils # (Manual) 9.9 TH/MM3 (1.8-7.7) Metamyelocytes 1 % (0-1) Myelocytes 2 % (0-0) Differential Comment FINAL DIFF MANUAL Platelet Estimate NORMAL (NORMAL) Platelet Morphology Comment NORMAL (NORMAL) Ovalocytes 1+ (NORMAL) Prothrombin Time 15.5 SEC (9.8-11.6) Prothromb Time International 1.4 RATIO Ratio Activated Partial 36.7 SEC Thromboplast Time (24.3-30.1) Sodium Level 139 MEQ/L (136-145) Potassium Level 4.7 MEQ/L (3.5-5.1) Chloride Level 97 MEQ/L (98-107) Carbon Dioxide Level 27.3 MEQ/L (21.0-32.0) Anion Gap 15 MEQ/L (5-15) Blood Urea Nitrogen 79 MG/DL (7-18) Creatinine 2.56 MG/DL (0.60-1.30) Estimat Glomerular Filtration 24 ML/MIN (>89) Rate Random Glucose 89 MG/DL (74-106) Calcium Level 10.2 MG/DL (8.5-10.1) Total Bilirubin 0.9 MG/DL (0.2-1.0) Aspartate Amino Transf 86 U/L (15-37) (AST/SGOT) Alanine Aminotransferase 59 U/L (12-78) (ALT/SGPT) Alkaline Phosphatase 113 U/L (45-117) Total Creatine Kinase 756 U/L (39-308) Creatine Kinase MB 0.8 NG/ML (0.5-3.6) Creatine Kinase MB % 0.1 % (0.0-4.0) Troponin I 0.07 NG/ML (0.02-0.05) B-Type Natriuretic Peptide 260 PG/ML (0-100) Total Protein 7.7 GM/DL (6.4-8.2) Albumin 2.8 GM/DL (3.4-5.0) Lipase 126 U/L (73-393) Lactic Acid Level 3.3 mmol/L 3.3 mmol/L (0.4-2.0) (0.4-2.0) Urine Color YELLOW (YELLW/STRAW) Urine Turbidity CLEAR (CLEAR) Urine pH 5.5 (5.0-8.5) Urine Specific [place] 1.013 (1.002-1.035) Urine Protein TRACE mg/dL (NEG-TRACE) Urine Glucose (UA) NEG mg/dL (NEG) Urine Ketones NEG mg/dL (NEG) Urine Occult Blood MOD (NEG) Urine Nitrite NEG (NEG) Urine Bilirubin NEG (NEG) Urine Urobilinogen LESS THAN 2.0 MG/DL (LESS THAN 2.0) Urine Leukocyte Esterase NEG (NEG) Urine RBC 1 /hpf (0-3) Urine WBC 1 /hpf (0-5) Urine Squamous Epithelial <1 /hpf (0-5) Cells Urine Bacteria RARE /hpf (NONE) Urine Hyaline Casts 17 /lpf (RARE) Urine Mucus FEW /lpf (OCC) Microscopic Urinalysis Comment CATH-CULTURE IND Test 10/19/16 10/19/16 10/19/16/25/17 14:02 17:25 18:15 00:33 Lactic Acid Level 3.7 mmol/L 3.2 mmol/L (0.4-2.0) (0.4-2.0) Blood Gas Puncture Site RT BRACHIAL Blood Gas Patient Temperature 98.6 Blood Gas HCO3 19 mmol/L (22-26) Blood Gas Base Excess -4.5 mmol/L (-2-2) Blood Gas Oxygen Saturation 89 % (90-100) Arterial Blood pH 7.47 (7.380-7.420) Arterial Blood Partial 26 mmHg (38-42) Pressure CO2 Arterial Blood Partial 63 mmHg Pressure O2 (61-120) Arterial Blood Oxygen Content 14.5 Vol % (12.0-20.0) Arterial Blood 1.7 % (0-4) Carboxyhemoglobin Arterial Blood Methemoglobin 1.3 % (0-2) Blood Gas Hemoglobin 11.7 G/DL (12.0-16.0) Oxygen Delivery Device NASAL CANNULA Blood Gas Liter Flow 4 L/M White Blood Count 8.0 TH/MM3 (4.0-11.0) Red Blood Count 3.27 MIL/MM3 (4.50-5.90) Hemoglobin 11.3 GM/DL (13.0-17.0) Hematocrit 34.3 % (39.0-51.0) Mean Corpuscular Volume 105.1 FL (80.0-100.0) Mean Corpuscular Hemoglobin 34.5 PG (27.0-34.0) Mean Corpuscular Hemoglobin 32.8 % Concent (32.0-36.0) Red Cell Distribution Width 22.1 % (11.6-17.2) Platelet Count 219 TH/MM3 (150-450) Mean Platelet Volume 8.4 FL (7.0-11.0) Neutrophils (%) (Auto) 90.2 % (16.0-70.0) Lymphocytes (%) (Auto) 1.6 % (9.0-44.0) Monocytes (%) (Auto) 8.1 % (0.0-8.0) Eosinophils (%) (Auto) 0.0 % (0.0-4.0) Basophils (%) (Auto) 0.1 % (0.0-2.0) Neutrophils # (Auto) 7.3 TH/MM3 (1.8-7.7) Lymphocytes # (Auto) 0.1 TH/MM3 (1.0-4.8) Monocytes # (Auto) 0.7 TH/MM3 (0-0.9) Eosinophils # (Auto) 0.0 TH/MM3 (0-0.4) Basophils # (Auto) 0.0 TH/MM3 (0-0.2) CBC Comment AUTO DIFF Differential Total Cells 100 Counted Neutrophils % (Manual) 87 % (16-70) Band Neutrophils % 10 % (0-6) Lymphocytes % 1 % (9-44) Monocytes % 1 % (0-8) Neutrophils # (Manual) 7.8 TH/MM3 (1.8-7.7) Metamyelocytes 1 % (0-1) Differential Comment FINAL DIFF MANUAL Platelet Estimate NORMAL (NORMAL) Platelet Morphology Comment NORMAL (NORMAL) Spherocytes 1+ (NORMAL) Ovalocytes 2+ (NORMAL) Sodium Level 144 MEQ/L (136-145) Potassium Level 3.8 MEQ/L (3.5-5.1) Chloride Level 111 MEQ/L (98-107) Carbon Dioxide Level 21.1 MEQ/L (21.0-32.0) Anion Gap 12 MEQ/L (5-15) Blood Urea Nitrogen 62 MG/DL (7-18) Creatinine 1.77 MG/DL (0.60-1.30) Estimat Glomerular Filtration 37 ML/MIN (>89) Rate Random Glucose 94 MG/DL (74-106) Calcium Level 8.2 MG/DL (8.5-10.1) Total Bilirubin 0.7 MG/DL (0.2-1.0) Aspartate Amino Transf 170 U/L (15-37) (AST/SGOT) Alanine Aminotransferase 86 U/L (12-78) (ALT/SGPT) Alkaline Phosphatase 135 U/L (45-117) Total Creatine Kinase 1166 U/L (39-308) Creatine Kinase MB 1.8 NG/ML (0.5-3.6) Creatine Kinase MB % 0.2 % (0.0-4.0) Troponin I 0.19 NG/ML 0.23 NG/ML (0.02-0.05) (0.02-0.05) Total Protein 6.3 GM/DL (6.4-8.2) Albumin 2.3 GM/DL (3.4-5.0) Test 10/20/16 10/20/16 06:38 12:17 White Blood Count 9.4 TH/MM3 (4.0-11.0) Red Blood Count 3.37 MIL/MM3 (4.50-5.90) Hemoglobin 11.9 GM/DL (13.0-17.0) Hematocrit 35.6 % (39.0-51.0) Mean Corpuscular Volume 105.7 FL (80.0-100.0) Mean Corpuscular Hemoglobin 35.3 PG (27.0-34.0) Mean Corpuscular Hemoglobin 33.4 % Concent (32.0-36.0) Red Cell Distribution Width 22.5 % (11.6-17.2) Platelet Count 206 TH/MM3 (150-450) Mean Platelet Volume 8.4 FL (7.0-11.0) Neutrophils (%) (Auto) 93.6 % (16.0-70.0) Lymphocytes (%) (Auto) 1.3 % (9.0-44.0) Monocytes (%) (Auto) 4.8 % (0.0-8.0) Eosinophils (%) (Auto) 0.0 % (0.0-4.0) Basophils (%) (Auto) 0.3 % (0.0-2.0) Neutrophils # (Auto) 8.8 TH/MM3 (1.8-7.7) Lymphocytes # (Auto) 0.1 TH/MM3 (1.0-4.8) Monocytes # (Auto) 0.4 TH/MM3 (0-0.9) Eosinophils # (Auto) 0.0 TH/MM3 (0-0.4) Basophils # (Auto) 0.0 TH/MM3 (0-0.2) CBC Comment AUTO DIFF Differential Total Cells 100 Counted Neutrophils % (Manual) 69 % (16-70) Band Neutrophils % 25 % (0-6) Monocytes % 1 % (0-8) Neutrophils # (Manual) 9.3 TH/MM3 (1.8-7.7) Metamyelocytes 4 % (0-1) Myelocytes 1 % (0-0) Differential Comment FINAL DIFF MANUAL Platelet Estimate NORMAL (NORMAL) Platelet Morphology Comment NORMAL (NORMAL) Ovalocytes 1+ (NORMAL) Keratocytes OCC (NORMAL) Sodium Level 144 MEQ/L (136-145) Potassium Level 3.4 MEQ/L (3.5-5.1) Chloride Level 111 MEQ/L (98-107) Carbon Dioxide Level 20.6 MEQ/L (21.0-32.0) Anion Gap 12 MEQ/L (5-15) Blood Urea Nitrogen 50 MG/DL (7-18) Creatinine 1.57 MG/DL (0.60-1.30) Estimat Glomerular Filtration 42 ML/MIN (>89) Rate Random Glucose 66 MG/DL (74-106) Calcium Level 8.8 MG/DL (8.5-10.1) Total Bilirubin 0.8 MG/DL (0.2-1.0) Aspartate Amino Transf 165 U/L (15-37) (AST/SGOT) Alanine Aminotransferase 83 U/L (12-78) (ALT/SGPT) Alkaline Phosphatase 115 U/L (45-117) Total Protein 6.4 GM/DL (6.4-8.2) Albumin 2.3 GM/DL (3.4-5.0) Troponin I 0.15 NG/ML (0.02-0.05) (FREDERICK YIN) Result Diagram: 10/20/16 0638 10/20/1638 Microbiology Microbiology Date/Time Procedure Status Source Growth 10/19/16 09:20 Aerobic Blood Culture - Preliminary Resulted Blood Peripheral NO GROWTH IN 1 DAY 10/19/16 09:20 Anaerobic Blood Culture - Preliminary Resulted Blood Peripheral NO GROWTH IN 1 DAY 10/19/16 09:25 Aerobic Blood Culture - Preliminary Resulted Blood Peripheral NO GROWTH IN 1 DAY 10/19/16 09:25 Anaerobic Blood Culture - Preliminary Resulted Blood Peripheral NO GROWTH IN 1 DAY 10/19/16 10:25 Urine Culture - Preliminary Resulted Urine Catheterized Urine NO GROWTH IN 24 HOURS. 10/19/16 10:25 Legionella Antigen - Final Complete Urine Catheterized Urine PRESUMPTIVE NEGATIVE FOR LEGIONELLA P... 10/19/16 10:25 Streptococcus pneumoniae Antigen (M - Final Complete Urine Catheterized Urine PRESUMPTIVE NEGATIVE FOR STREPTOCOCCU... 10/19/16 11:49 Gram Stain - Final Resulted Sputum Expectorated Sputum 10/19/16 11:49 Sputum Culture - Preliminary Resulted Sputum Expectorated Sputum HEAVY GROWTH NORMAL RESPIRATORY ZEN... . Imaging Last Impressions Lung Scan-VQ Nuclear Medicine 10/20/16 0000 Signed Impressions: Service Date/Time: Thursday, October 20, 2016 13:22 - CONCLUSION: Bilateral ventilatory defects without evidence for PE. Yao Perez MD Chest X-Ray 10/19/16 1150 Signed Impressions: Service Date/Time: Wednesday, October 19, 2016 12:25 - CONCLUSION: Scattered interstitial densities could be interstitial edema or interstitial infiltrate. Dale Ba MD Hip and Pelvis X-Ray 10/19/16 0905 Signed Impressions: Service Date/Time: Wednesday, October 19, 2016 09:40 - CONCLUSION: 1. No acute fracture or malalignment. 2. Osteopenia. The patient is status post right hip arthroplasty. Juan Melgar MD Hip X-Ray 10/19/16 0905 Signed Impressions: Service Date/Time: Wednesday, October 19, 2016 09:33 - CONCLUSION: 1. No acute fracture or malalignment. 2. That is post bilateral hip arthroplasty. Juan Melgar MD Knee X-Ray 10/19/16 0000 Signed Impressions: Service Date/Time: Wednesday, October 19, 2016 10:02 - CONCLUSION: 1. 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 2. Remote postsurgical changes. Juan Melgar MD . (FREDERICK YIN) Patient/Family Conference Present at Family Conference: Met with patient, spouse and son. Family Conference Time (mins): 60 Family Conference Location: Bedside Issues Discussed: * Palliative care role, purpose, approach * Additional medical, psychosocial, and spiritual history * Patients general health, functional status, and cognitive changes in the months leading up to the current hospitalization * Patient/family understanding of the current medical problems * Patient/family understanding of prognosis * Patients goals of care as best understood from advance directives and/or conversations and/or values * Current medical treatment options and benefits/burdens of those options * Likely scenarios comparing ongoing aggressive care with a transition to comfort measures only * Questions answered to the best of my ability * Palliative care contact information provided (FREDERICK YIN) Assessment and Plan Disease Oriented Problem List: (1) Sepsis (2) CHF (congestive heart failure) (3) SOB (shortness of breath) (4) Atrial fibrillation (5) Fall Symptom Scale: (1) SOB (shortness of breath) 0-10 Scale: Unable to quantify (2) Decreased appetite 0-10 Scale: Unable to quantify Comment: Eating small amounts of soft foods. (3) Weakness 0-10 Scale: Unable to quantify Comment: Bed to chair bound Pertinent Non-Medical Issues Psychosocial: . 3 children. Spiritual: Synagogue deann. Legal:Patient is incapacitated to make his own health care decisions. Living Will on file, does not designate a healthcare surrogate. According to [place] statutes, should he lose capacity, health care proxy decision-making would fall to his spouse. Ethical issues impacting care: no known concerns at this time. . Important Contacts * Narcisa Joe, : [phone] * Dhara Joe, daughter: [phone] or [phone] . Prognosis Mr. Dent is an 86-year-old male with severe COPD, coronary artery disease and multiple other comorbidities, given his age and comorbidities life expectancy is likely limited. He has had 8 emergency room visit/hospitalizations in 2016. This is his 2nd acute-care hospitalization in the past month. Overall prognosis poor. Hospice appropriate if goals are comfort oriented. . Code Status: Full Code Plan * Patient is incapacitated to make his own health care decisions. Living Will on file, does not designate a healthcare surrogate. According to [place] statutes, should he lose capacity, health care proxy decision-making would fall to his spouse. * NO CODE * 10/20/16 Spoke with patient, and son. Family would like to discuss further continued aggressive care versus transition to comfort focused care with hospice support. Family supports patient's decision for NO CODE and seems to be seriously considering transition to comfort. They are not yet ready to make this decision. * SYMPTOMS: Dyspnea: feels short of breath on Venturi mask. Will discuss potential opiate versus benzodiazepine for comfort medical attending. Questionable morphine allergy per . Weakness: given age, comorbidities including severe underlying COPD. Recent falls. * Palliative care number provided. * Palliative care will continue to follow throughout hospital course to assist with symptom management and clarification of goals as needed. . (FREDERICK YIN) Thank you for the opportunity to participate in the care of Mr. Joe. (FREDERICK YIN) Attestation To help prompt me to consider important information that might be impacting today's encounter and assessment, information from prior notes written by myself or my colleagues may have been "brought forward" into today's note. My signature on this note, however, is an attestation that I personally performed the exam, history, and/or decision-making noted today, and, unless otherwise indicated, the interactions with patient, family, and staff as well as the review of records all occurred today. I also attest that the listed assessment and stated plan reflect my best clinical judgment today based on the combination of historical information, prior notes, and today's exam/ interactions. When time spent is documented, it refers only to time spent today by the signer, or if indicated, combined time spent today by collaborating physician/nurse practitioner. (FREDERICK YIN) FREDERICK YIN Oct 20, 2016 15:10 Marian Richter, MANAGER PROGRAMMING Oct 20, 2016 15:28
[2016-10-20] MEDS: metroNIDAZOLE 500 MG INJ 100 ML IV SCH (17:08)
[2016-10-20] MEDS ORDERED: FUROSEMIDE 20 MG/2 ML VIAL IV PUSH ONE (20:00)
--- NOTE | 2016-10-20 20:40 | MB ---
cc: TERA HALEY DATE OF CONSULTATION: 10/20/2016 REASON FOR CONSULTATION: HISTORY OF PRESENT ILLNESS: Mr. Joe is an 86-year-old male with severe end-stage COPD, chronic respiratory failure on oxygen therapy. The patient has known congestive heart failure as well, atrial fibrillation, admitted with increasing shortness of breath, increasing weakness, since his recent hospital discharge as well as difficulty swallowing. The patient apparently had fallen and tripped on the floor at which point he was brought to the emergency room found to be in respiratory failure with x-ray suggestive of congestive heart failure, presently on oxygen therapy via venturi mask, with use of accessory muscles of respiration. PAST SURGICAL HISTORY, PAST MEDICAL HISTORY: 1. COPD. 2. CHF. 3. Coronary artery disease. 4. Atrial fibrillation. 5. Previous TIA twice. 6. Hypertension. 7. Rheumatoid arthritis. 8. CABG in 2001. 9. Hernia repair. 10. Cataract surgery. 11. Bladder surgery. 12. Renal cyst removed. 13. Hip replacement. ALLERGIES CODEINE. SERUM QUININE AMOXICILLIN TETANUS MOTRIN NONSTEROIDAL ANTI-INFLAMMATORY DRUGS FAMILY HISTORY: Positive for heart disease, otherwise unremarkable. SOCIAL HISTORY: He has not smoked for many years now, having had a 30 pack-year smoking history. He drinks alcohol socially, retired. Worked in an [employer] plant. He lives with . SYSTEM REVIEW: 12-point review of systems as per HPI and past history otherwise negative. PHYSICAL EXAMINATION: On exam, pulse is 90, respirations 18, blood pressure 116/60, oxygen saturation 100%. HEENT: Exam unremarkable. Eyes without icterus. Neck: Without adenopathy. Thyroid enlargement. Central trachea. Chest: Scattered rhonchi bilaterally. Cardiac exam: PMI not appreciated. S1-S2 audible. Positive S3. Abdomen: Lax, bowel sounds audible. Extremities: No clubbing, cyanosis or edema. LABORATORY DATA White count 10,000, hemoglobin 12, hematocrit 39, platelets 281,000, sodium 139, potassium 4.7, BUN 79, creatinine 2.5. Chest x-ray: Mild congestive change, pneumonia less likely. IMPRESSION 1. Hypoxic respiratory failure. 2. COPD 3. CHF 4. Sepsis 5. Acute renal insufficiency. PLAN The patient was admitted to the hospital, high inspired oxygen fraction will be given to maintain adequate oxygenation, therapy for underlying COPD undertaken, antibiotic therapy has been instituted and appropriately so. The patient has been on methotrexate for underlying rheumatoid arthritis, and consideration may be given to discontinuing methotrexate. Will provide high-flow oxygen therapy as needed to maintain adequate oxygenation. The patient's prognosis generally poor with his multiple medical problems. He decided not to be intubated or mechanically ventilated. I do thank you for asking me to partake in Mr. Joe's care. Tera Haley MD WWW/DANICA /7:29 PM /8:28 PM
--- NOTE | 2016-10-20 21:02 | MB ---
cc: MANOLO PONCE M.D. DATE OF CONSULTATION 10/20/16 HISTORY OF PRESENT ILLNESS Thank you, for asking me to see this very pleasant 86 year old gentleman who apparently fell at home. He apparently was dehydrated and has elected to be a DNR. He was admitted at [facility] 10/11-10/14 with congestive heart failure and chronic obstructive pulmonary disease and he is once again admitted with the same plus marked dehydration. The patient at this point is short of breath at rest. REVIEW OF SYSTEMS Positive for shortness of breath, fatigue, exhaustion. The remainder of a 12 point review of systems is negative. PAST MEDICAL HISTORY 1. Rheumatoid arthritis 2. Atrial fibrillation, 3. Hyperlipidemia, 4. Chronic obstructive pulmonary disease 5. CAD 6. Transient ischemic attack 7. Hypertension, 8. Recent pneumonia 9. Recent congestive heart failure. PAST SURGICAL HISTORY 1. Possible bypass surgery, 2. Inguinal hernia repair, 3. bilateral hip replacement 4. Bladder surgery. ALLERGIES HORSE SERUM CODEINE QUININE AMOXICILLIN TETANUS ULTRAM FAMILY HISTORY Positive for mother having fluid buildup. Father at 72. SOCIAL HISTORY Quit smoking one pack per day for 30 years, moderate alcohol. PHYSICAL EXAMINATION VITAL SIGNS: Pulse was 105, respirations 22, blood pressure 113/56. EYES: Showed no xanthelasma. MOUTH: Showed no signs of pallor. NECK: Showed no JVD. The patient was short of breath at rest sitting on the side of bed with an oxygen mask on. Pulse ox was 93. The patient was laboring and respiratory rate had increased from 22-30. CARDIAC: He had two heart sounds. CHEST: Clear. ABDOMEN: Soft. No hepatosplenomegaly. EXTREMITIES: Legs revealed cyanosis or edema. NEUROLOGIC: Grossly intact. SKIN: Without rashes. LABORATORY DATA Gram stain showed heavy growth of normal bernadette. Troponin was slightly elevated 0.23, INR 1.4. White count 9.4. BNP was 260 which is elevated. IMAGING STUDIES VQ scan showed no evidence of pulmonary embolism. Chest x-ray showed scattered interstitial densities. ASSESSMENT/PLAN At this point, the patient is on metronidazole, vancomycin, metoprolol potassium chloride, prednisone, Eliquis, sodium chloride. He is being treated for COPD exacerbation and pneumonia. He may benefit from careful diuresis in the face of recent dehydration but his creatinine is 17 and BUN 62 consistent with some evolving renal injury. We will try gentle diuresis with small dose of Lasix. Thank you for asking us to see this very pleasant gentleman. Manolo Ponce MD, FRCP,[facility]/ /7:50 PM /8:49 PM MTDMarlyn
[2016-10-20] MEDS: DONEPEZIL HCL 5 MG TAB PO SCH (21:04)
[2016-10-20] MEDS ORDERED: LORazepam 2 MG/ML VIAL IV PUSH PRN (21:30)
[2016-10-21] VITALS (11 sets, daily range): BP systolic 97–117; BP diastolic 53–86; PULSE 112–130; RESP 22–40; TEMP 96.1–98.1; O2SAT 80–95
[2016-10-21] MEDS ORDERED: LORazepam 2 MG/ML VIAL IV PUSH ONE ×2 (00:30→09:00)
[2016-10-21] MEDS: metroNIDAZOLE 500 MG INJ 100 ML IV SCH ×2 (02:51→09:12)
[2016-10-21] MEDS ORDERED: LORazepam 2 MG/ML VIAL IV PUSH PRN ×2 (03:00→09:00)
[2016-10-21] MEDS: RESP: ALBUTEROL 2.5 MG/IPRATROPIUM 0.5 MG NEB (SCH) NEB ×3 (03:04→10:43)
[2016-10-21 03:24] LABS: BLOOD GAS BASE EXCESS -8.3 mmol/L (-2-2); BLOOD GAS CARBOXYHEMOGLOBIN 1.5 % (0-4); BLOOD GAS HCO3 16 mmol/L (22-26); BLOOD GAS METHEMOGLOBIN 1.1 % (0-2); BLOOD GAS O2 HGB SATURATION 91 % (90-100); BLOOD GAS OXYGEN CONTENT 17.5 Vol % (12.0-20.0); BLOOD GAS PCO2 26 mmHg (38-42); BLOOD GAS PO2 72 mmHg (61-120); BLOOD GAS TOTAL HGB 13.6 G/DL (12.0-16.0); CRITICAL VALUE YES; TEMP CORR TO 98.6
[2016-10-21 03:25] LABS: DRAW SITE RT RADIAL; FIO2 35 %; NUMBER OF ARTERIAL PUNCTURES 1; OXYGEN DEVICE BiPAP; ULNAR PULSE PRESENT; VENT SETTINGS IPAP15/EPAP5
[2016-10-21 03:26] LABS: STAT NO
--- NOTE | 2016-10-21 05:44 | HHI.FPPN ---
Addendum to progress note ADDENDUM Reason for addendum: Additonal documentation Additional information S: Paged by RN with report that patient seems to be agitated and had frequently attempted to take his venturi mask off. Respiratory had evaluated the patient and was switched to a BiPAP mask. RN reported that the patient continued to be tachypneic with a rate in the upper 30s to 40s. RN stated the ativan that was given to him earlier had helped but seemed to only last for about 2 hours. Patient was seen and examined; patient was sleeping in bed with BiPAP mask on. Appeared comfortable. He still had a respiratory rate in the uppers 40s. He had received 1 mg of IV ativan about 90 minutes ago. O: GENERAL: Elderly man sleeping in bed with BiPAP mask in place SKIN: Multiple abrasions of upper and lower extremities HEAD: Atraumatic. Normocephalic. CARDIOVASCULAR: Tachycardic rate, regular rhythm, no murmurs appreciated. Peripheral pulses 2+. RESPIRATORY: BiPAP mask in place. Tachypneic in upper 40 breaths per minute. Decreased breath sounds of left lower lung field, scattered crackles in right mid and right lower lung le. Good breath sounds in apical lung le. No wheezing appreciated. No rhonchi. GASTROINTESTINAL: Abdomen soft, non-tender, nondistended. MUSCULOSKELETAL: No lower extremity edema. A/P: Patient is an 86-year-old male admitted due to sepsis from pneumonia, ED, and dehydration currently being treated for HCAP/aspiration PNA as he was recently admitted from 10/11-10/14, he has known COPD on 4L O2 at home, h/o atrial fibrillation and CHF - Patient now appears much more comfortable from earlier accounts from RN - Will try a longer acting benzodiazepine, start Valium 2 mg po q8h prn anxiety - Discontinue Ativan - Considered morphine to help decrease respiratory rate but patients BP had been 98/53 earlier in the night with most recent BP of 117/86; as Ativan had helped earlier will continue with a benzodiazepine for now - V/Q scan from earlier was without evidence for PE - Continue BiPAP, ABG had been ordered for a baseline sdw Reid Ramirez MD R1 Oct 21, 2016 05:44
[2016-10-21] MEDS ORDERED: DIAZEPAM 2 MG TAB PO PRN (06:00)
[2016-10-21] MEDS: AZTREONAM INJ 500 MG in SODIUM CHLORIDE 0.9% INJ 100 ML IV SCH ×2 (06:20→13:42)
--- NOTE | 2016-10-21 07:19 | HHI.FPPN ---
Subjective Remarks The patient has been seen and examined this morning. He remained tachypneic overnight. Was agitated into the office Venturi mask was placed on BiPAP. He is also consistently tachycardic overnight. He was seen by Dr. Orlando Lozano, , and palliative care yesterday. Goals of care were discussed. The patient's CODE STATUS has been changed to DNR/DNI. Patient current on bipap. He is unresponsive and appears uncomfortable. Significant increase work of breathing. Palliative care team is also at the bedside. (Pebbles Rowland MD R3) Objective Vitals Vital Signs Date Time Temp Pulse Resp B/P Pulse Ox O2 Delivery O2 Flow Rate FiO2 10/21/16 04:00 98.1 121 22 117/86 95 10/21/16 03:30 94 35 10/21/16 00:40 93 35 10/21/16 00:36 123 35 98/53 92 10/21/16 00:00 96.1 115 30 105/75 92 10/20/16 20:05 115 10/20/16 20:00 96.2 120 22 137/61 93 10/20/16 19:57 92 Venturi Mask 35 10/20/16 16:00 98.2 105 30 113/56 93 10/20/16 14:52 92 10/20/16 12:00 98.1 100 32 101/57 93 10/20/16 08:00 92 Venturi Mask 35 10/20/16 08:00 96.7 102 30 112/66 92 I/O 10/20/16 10/20/16 10/20/16 10/21/16 10/21/16 10/21/16 07:00 15:00 23:00 07:00 15:00 23:00 Intake Total 2386 ml 840 ml Output Total 300 ml Balance 2386 ml 540 ml Intake Oral 840 ml IV Total 2386 ml Output Urine Total 300 ml # Voids 3 4 4 # Bowel Movements 2 3 (Pebbles Rowland MD R3) Result Diagram: 10/20/16 0638 10/20/16 0638 Imaging Last Impressions Lung Scan-VQ Nuclear Medicine 10/20/16 0000 Signed Impressions: Service Date/Time: Thursday, October 20, 2016 13:22 - CONCLUSION: Bilateral ventilatory defects without evidence for PE. K. Mann Perez MD Chest X-Ray 10/19/16 1150 Signed Impressions: Service Date/Time: Wednesday, October 19, 2016 12:25 - CONCLUSION: Scattered interstitial densities could be interstitial edema or interstitial infiltrate. Dale Ba MD Hip and Pelvis X-Ray 10/19/16 0905 Signed Impressions: Service Date/Time: Wednesday, October 19, 2016 09:40 - CONCLUSION: 1. No acute fracture or malalignment. 2. Osteopenia. The patient is status post right hip arthroplasty. Juan Melgar MD Hip X-Ray 10/19/16 09 Signed Impressions: Service Date/Time: Wednesday, October 19, 2016 09:33 - CONCLUSION: 1. No acute fracture or malalignment. 2. That is post bilateral hip arthroplasty. Juan Melgar MD Knee X-Ray 10/19/16 0000 Signed Impressions: Service Date/Time: Wednesday, October 19, 2016 10:02 - CONCLUSION: 1. 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 2. Remote postsurgical changes. Juan Melgar MD Objective Remarks GENERAL: elderly man on bipap, appears uncomfotable, unable to communicate SKIN: multiple abrasions of upper and lower extremities of various stages of healing, stage 1 decubitus ulcer, fresh abrasion on right lower leg (from previous exam) HEAD: Atraumatic. Normocephalic. No temporal or scalp tenderness. ENT: Nose without bleeding, purulent drainage or septal hematoma. Airway patent. NECK: Trachea midline. No JVD or lymphadenopathy. Supple, nontender, no meningeal signs. CARDIOVASCULAR: Irregular rhythm, no murmurs appreciated RESPIRATORY: Increase work of breathing, supraclavicular retractions, abdominal retractions, bibasilar crackles and wheezing are present on auscultation of lateral lung le. Currently on bipap. GASTROINTESTINAL: Abdomen soft, non-tender, nondistended. No hepato-splenomegaly , or palpable masses. No guarding. MUSCULOSKELETAL: Extremities without clubbing, cyanosis, or edema. No joint tenderness, effusion, or edema noted. No calf tenderness. NEUROLOGICAL: responds to painful stimuli, does not awaken, appears uncomfortable. (Pebbles Rowland MD R3) A/P Assessment and Plan 86 yo male COPD and A-Fib, with significant SOB currently being treated for HCAP /Aspiration PNA. Discharge Planning D/C Hospice care center, pending family meeting this am. Will discuss with Dr. Reed (Pebbles Rowland MD R3) Attending Attestation Patient examined and case discussed with resident physicians I have read the above note and agree with the assessment/plan is discussed with me I was involved in all medical decision making for this patient Alexandro Reed M.D. (Alexandro Reed MD) Problem List: (1) SOB (shortness of breath) Status: Acute Plan: At this point patients clinical status has significant worsened. Palliative care has spoken with this am, plan is to have a family meeting this am and get the patient to a Hospice Care center where comfort measures can be made a priority. He can go to a hospice care center on bipap. Ativan will be provided in the interim for comfort measures. - V/Q scan 10/20: Bilateral ventilatory defects without evidence for PE - Dr. Orlando Perry: Suggested to DC methotrexate. We'll deliver high flow oxygen therapy to maintain adequate oxygenation. Reports patient's prognosis is poor. Discussed with patient, decided to be DO NOT INTUBATE or mechanically ventilated. -ACS workup essentially unremarkable. EKGs have been unchanged. Troponin stable. Dr. Ponce has seen and evaluated the patient: Suggest gentle diuresis Lasix 20 mg IV twice a day - Ativan 1 mg IV q4 (2) Sepsis Status: Acute Plan: Patient has not been afebrile. His white blood cell count continues to down trend. Plan: - Blood cultures negative x1 days - urine culture negative - sputum culture normal respiratory bernadette - Renally dosed: aztreonam 1g q8, flagyl 500 mg q8, Vancomycin 1g (pharmacy consult) 10/19- - urine legionella and pneumococcal negative (3) CHF (congestive heart failure) Status: Chronic Plan: Patient with a reported hx of CHF. ECHO done in September 2016 shows normal systolic function EF 55-60%. Not an active exacerbation. Plan - Gentle diuresis per cardiology, Lasix 20 mg IV twice a day - Continue home metoprolol 50 mg daily, - HOLD lisinopril 20 mg PO BID - BNP 260 and admission (4) COPD (chronic obstructive pulmonary disease) Status: Chronic Plan: Significant COPD with poor prognosis. Palliative care has met with the patient. Discussion of opiate vs benzo for comfort. There is questionable morphine allergy. CODE STATUS was changed to DNR. Hospice appropriate of goals are comfort oriented. Plan - albuterol and duonebs alternating - continue home oxygen 4 L maintain sats 88-92%, currently on BiPAP - was on prednisone taper, resume 10 mg PO daily -Pulmonology is following along - Does not want to be intubated or mechanically ventilated - Chest PT (5) RA (rheumatoid arthritis) Status: Chronic Plan: home methotrexate stopped given acute clinical condition (6) Atrial fibrillation Status: Chronic Plan: Continue home eliquis and Lopressor (7) Fall Status: Acute Plan: Patient had sounds like a mechanical fall. His CPK is 756. Knee, hip, and pelvis X-ray are negative - Repeat CPK - IV hydration (8) ED (acute kidney injury) Status: Acute Plan: Acute kidney injury likely due to dehydration and increased dose of Lasix. Renal function continues to improve with hydration. - renally dose all meds & avoid nephrotoxic agents - IVF - monitor closely (9) FEN/PPX Status: Acute Plan: Fluids: HLIV Electrolytes: continue KCl 20 meq daily Nutrition: Per speech puree diet with all liquids thickened to nectar consistency GI prophylaxis: protonix while on steroids DVT prophylaxis: currently on eliquis PT eval (Pebbles Rowland MD R3) Problem Qualifiers (1) Sepsis: Qualified Code: A41.9 - Sepsis, due to unspecified organism Pebbles Rowland MD R3 Oct 21, 2016 07:19 Alexandro Reed MD Oct 21, 2016 16:04
[2016-10-21] MEDS: BUDESONIDE-FORMOTEROL 80/4.5 MCG INHALER INH SCH (08:46)
[2016-10-21] MEDS: POTASSIUM CHLORIDE 20 MEQ CONTROLLED RELEASE TAB PO SCH (08:47)
[2016-10-21] MEDS: PANTOPRAZOLE SOD 40 MG DELAYED RELEASE TAB PO SCH (08:47)
[2016-10-21] MEDS: METOPROLOL TARTRATE 50 MG TAB PO SCH (08:47)
[2016-10-21] MEDS: predniSONE 10 MG TAB PO SCH (08:47)
[2016-10-21] MEDS: APIXABAN 5 MG TABLET PO SCH (08:47)
[2016-10-21] MEDS: MULTIVITAMIN TAB PO SCH (08:48)
[2016-10-21] MEDS: CHOLECALCIFEROL (VIT D3) 1000 UNIT TAB PO SCH (08:48)
[2016-10-21] MEDS ORDERED: FUROSEMIDE 20 MG/2 ML VIAL IV PUSH SCH (09:00)
[2016-10-21] MEDS: SODIUM CHLORIDE 0.9% FLUSH 10 ML FLUSH IV FLUSH SCH (09:11)
[2016-10-21 10:54] LABS: AUTOMATED NEUTROPHIL # 9.1 TH/MM3 (1.8-7.7); BASOPHIL # 0.1 TH/MM3 (0-0.2); BASOPHIL % 0.5 % (0.0-2.0); HEMATOCRIT 37.5 % (39.0-51.0); LYMPH % 3.3 % (9.0-44.0); LYMPHOCYTE # 0.3 TH/MM3 (1.0-4.8); MEAN CELL VOLUME 105.5 FL (80.0-100.0); MEAN CORPUSCULAR HEMOGLOBIN 34.9 PG (27.0-34.0); MEAN CORPUSCULAR HGB CONC 33.1 % (32.0-36.0); MONO % 9.3 % (0.0-8.0); NEUT % 86.9 % (16.0-70.0); PLATELET COUNT 216 TH/MM3 (150-450); RED BLOOD COUNT 3.56 MIL/MM3 (4.50-5.90); RED CELL DISTRIBUTION WIDTH 23.1 % (11.6-17.2); WHITE BLOOD COUNT 10.5 TH/MM3 (4.0-11.0)
[2016-10-21 10:56] LABS: HEMO FLAGS AUTO DIFF
--- NOTE | 2016-10-21 10:58 | EKG ---
Date Performed: 10/20/2016 Time Performed: 12:23:41 PTAGE: 86 years EKG: ATRIAL FIBRILLATION WITH RAPID VENTRICULAR RESPONSE BORDERLINE LEFT AXIS DEVIATION MODERATE INTRAVENTRICULAR CONDUCTION DELAY NONSPECIFIC T-WAVE ABNORMALITY ABNORMAL RHYTHM ECG PREVIOUS TRACING : 10/19/2016 10.18 Compared to prior tracing no significant change DOCTOR: Marlene Haddad Interpretating Date/Time 10/21/2016 10:57:13
[2016-10-21] MEDS: VANCOMYCIN INJ 1,000 MG in SODIUM CHLOR 0.9% 250 ML INJ 250 ML IV SCH (11:45)
[2016-10-21 11:47] LABS: ACANTHOCYTES 1+ (NORMAL); BANDS 8 % (0-6); CORRECTED NUCLEATED RBC 1 /100 WBC (0-0); NEUTROPHIL # MANUAL DIFF 9.5 TH/MM3 (1.8-7.7); OVALOCYTES 1+ (NORMAL); PLATELET ESTIMATE SMEAR NORMAL (NORMAL); PLATELET MORPHOLOGY NORMAL (NORMAL); POLYS (SEG NEUTROPHILS) 82 % (16-70); SCAN/DIFF FINAL DIFF MANUAL; WBC DIFF SAMPLE 100
[2016-10-21 11:48] LABS: ALKALINE PHOSPHATASE 116 U/L (45-117); ALT (GPT) 76 U/L (12-78); ANION GAP 11 MEQ/L (5-15); AST (GOT) 141 U/L (15-37); BICARBONATE 20.9 MEQ/L (21.0-32.0); BLOOD UREA NITROGEN 53 MG/DL (7-18); CHLORIDE 116 MEQ/L (98-107); GLOMERULAR FILTRATION RATE 40 ML/MIN (>89); POTASSIUM 4.4 MEQ/L (3.5-5.1); SODIUM (NA) 148 MEQ/L (136-145); TOTAL BILIRUBIN ADULT 0.9 MG/DL (0.2-1.0)
[2016-10-21] MEDS ORDERED: HYDROmorphone HCL PF 1 MG/ML VIAL IV PUSH ONE (12:00)
--- NOTE | 2016-10-21 12:53 | HHI.HCPN ---
Reason for visit a. To assist with evaluation and management of symptoms including: dyspnea, tachypnea. b. To assist medical decision maker(s) with: better understanding of current medical conditions; weighing benefits/burdens of medical treatment options; making medical treatment decisions. . (FREDERICK YIN) Subjective/Interval History Call from Dr. Rowland to report patient is declining, now on BiPAP overnight. I (with Marian Richter LCSW) came to to unit to unit to find patient restless, tachypneic and with labored respirations. He is unresponsive. He is using accessory muscles to breathe. Discussed with nurse and Dr. Rowland. Recommended Lorazepam 1mg IV and Batista catheter. Called to report clinical decline. Offered to meet with family when they arrive later today. Met with Mrs. Joe, daughter and son at bedside. Patient is unresponsive. His breathing is less labored post Dilaudid 0.5mg IV. Lengthy discussion with family. Medical update provided. Reviewed hospice option per their request. Options including inpatient hospice vs care center placement reviewed. Family is leaning toward care center placement. Family prefers [facility], bed on hold for him (spoke with Jody). Discussed with nurse, Jenn will be here within the hour to meet with family. Family is awaiting arrival of daughter from vacation in [place] later today. Family would like patient transported to care center on BiPAP with plan for removal of BiPAP after all family has gathered. Questions answered. Aviation Safety Inspector requested, Buster will visit. . Family/friend interactions See interval note. . (FREDERICK IYN) Advance Directives Living Will: Copy in medical record (FREDERICK YIN) Advance Directive Specifics Date completed: 11-25-2012 . Documented care wishes: Living will is a typical living will stating Mr. Joe directs that life- prolonging measures be withheld or withdrawn when the attending and another consulting physician have determined there is no reasonable medical probability of recovery from a terminal condition, end-stage condition, or is in a persistent vegetative state. . Significant change in goals: NO CODE. [place] DNR signed on chart. Family elects transition to comfort with Hospice support. Plan to transfer to [facility] when arrangements made. . (FREDERICK YIN) Objective Vital Signs Date Time Temp Pulse Resp B/P Pulse Ox O2 Delivery O2 Flow Rate FiO2 10/21/16 10:43 92 40 10/21/16 08:15 97.0 112 36 99/66 80 10/21/16 08:00 97.3 127 40 97/65 92 10/21/16 07:50 92 40 10/21/16 07:50 90 10/21/16 07:05 130 10/21/16 04:00 98.1 121 22 117/86 95 10/21/16 03:30 94 35 10/21/16 00:40 93 35 10/21/16 00:36 123 35 98/53 92 10/21/16 00:00 96.1 115 30 105/75 92 10/20/16 20:05 115 10/20/16 20:00 96.2 120 22 137/61 93 10/20/16 19:57 92 Venturi Mask 35 10/20/16 16:00 98.2 105 30 113/56 93 10/20/16 14:52 92 Physical Exam CONSTITUTIONAL/GENERAL: This is an elderly frail gentlemen, with labored respirations at rest. TUBES/LINES/DRAINS: BiPAP, PIV, Batista. SKIN: No jaundice, rashes, or lesions. Ecchymoses on upper extremities. Right lower extremity abrasion. Skin temperature appropriate. Not diaphoretic. CARDIOVASCULAR: tachycardic, irregular. RESPIRATORY/CHEST: respirations labored at rest. Tachypneic, supraclavicular retractions. Right lower lung crackles, left with course breath sounds. GASTROINTESTINAL: Abdomen soft, non-tender, nondistended. No guarding. Bowel sounds present. GENITOURINARY: Without palpable bladder distension. Batista catheter in place. MUSCULOSKELETAL: Extremities without clubbing, cyanosis, or edema. No joint tenderness or effusion noted. No calf tenderness. No mottling or clubbing. NEUROLOGICAL: Unresponsive. PSYCHIATRIC: restless. . (FREDERICK YIN) Diagnostic Tests Laboratory Laboratory Tests Test 10/19/16 10/19/16 10/19/16 10/19/16 09:25 09:29 10:25 11:39 White Blood Count 10.6 TH/MM3 (4.0-11.0) Red Blood Count 3.75 MIL/MM3 (4.50-5.90) Hemoglobin 12.9 GM/DL (13.0-17.0) Hematocrit 39.0 % (39.0-51.0) Mean Corpuscular Volume 104.1 FL (80.0-100.0) Mean Corpuscular Hemoglobin 34.4 PG (27.0-34.0) Mean Corpuscular Hemoglobin 33.0 % Concent (32.0-36.0) Red Cell Distribution Width 22.0 % (11.6-17.2) Platelet Count 281 TH/MM3 (150-450) Mean Platelet Volume 8.7 FL (7.0-11.0) Neutrophils (%) (Auto) 87.3 % (16.0-70.0) Lymphocytes (%) (Auto) 1.2 % (9.0-44.0) Monocytes (%) (Auto) 10.8 % (0.0-8.0) Eosinophils (%) (Auto) 0.0 % (0.0-4.0) Basophils (%) (Auto) 0.7 % (0.0-2.0) Neutrophils # (Auto) 9.3 TH/MM3 (1.8-7.7) Lymphocytes # (Auto) 0.1 TH/MM3 (1.0-4.8) Monocytes # (Auto) 1.2 TH/MM3 (0-0.9) Eosinophils # (Auto) 0.0 TH/MM3 (0-0.4) Basophils # (Auto) 0.1 TH/MM3 (0-0.2) CBC Comment AUTO DIFF Differential Total Cells 100 Counted Neutrophils % (Manual) 84 % (16-70) Band Neutrophils % 6 % (0-6) Monocytes % 7 % (0-8) Neutrophils # (Manual) 9.9 TH/MM3 (1.8-7.7) Metamyelocytes 1 % (0-1) Myelocytes 2 % (0-0) Differential Comment FINAL DIFF MANUAL Platelet Estimate NORMAL (NORMAL) Platelet Morphology Comment NORMAL (NORMAL) Ovalocytes 1+ (NORMAL) Prothrombin Time 15.5 SEC (9.8-11.6) Prothromb Time International 1.4 RATIO Ratio Activated Partial 36.7 SEC Thromboplast Time (24.3-30.1) Sodium Level 139 MEQ/L (136-145) Potassium Level 4.7 MEQ/L (3.5-5.1) Chloride Level 97 MEQ/L (98-107) Carbon Dioxide Level 27.3 MEQ/L (21.0-32.0) Anion Gap 15 MEQ/L (5-15) Blood Urea Nitrogen 79 MG/DL (7-18) Creatinine 2.56 MG/DL (0.60-1.30) Estimat Glomerular Filtration 24 ML/MIN (>89) Rate Random Glucose 89 MG/DL (74-106) Calcium Level 10.2 MG/DL (8.5-10.1) Total Bilirubin 0.9 MG/DL (0.2-1.0) Aspartate Amino Transf 86 U/L (15-37) (AST/SGOT) Alanine Aminotransferase 59 U/L (12-78) (ALT/SGPT) Alkaline Phosphatase 113 U/L (45-117) Total Creatine Kinase 756 U/L (39-308) Creatine Kinase MB 0.8 NG/ML (0.5-3.6) Creatine Kinase MB % 0.1 % (0.0-4.0) Troponin I 0.07 NG/ML (0.02-0.05) B-Type Natriuretic Peptide 260 PG/ML (0-100) Total Protein 7.7 GM/DL (6.4-8.2) Albumin 2.8 GM/DL (3.4-5.0) Lipase 126 U/L (73-393) Lactic Acid Level 3.3 mmol/L 3.3 mmol/L (0.4-2.0) (0.4-2.0) Urine Color YELLOW (YELLW/STRAW) Urine Turbidity CLEAR (CLEAR) Urine pH 5.5 (5.0-8.5) Urine Specific [place] 1.013 (1.002-1.035) Urine Protein TRACE mg/dL (NEG-TRACE) Urine Glucose (UA) NEG mg/dL (NEG) Urine Ketones NEG mg/dL (NEG) Urine Occult Blood MOD (NEG) Urine Nitrite NEG (NEG) Urine Bilirubin NEG (NEG) Urine Urobilinogen LESS THAN 2.0 MG/DL (LESS THAN 2.0) Urine Leukocyte Esterase NEG (NEG) Urine RBC 1 /hpf (0-3) Urine WBC 1 /hpf (0-5) Urine Squamous Epithelial <1 /hpf (0-5) Cells Urine Bacteria RARE /hpf (NONE) Urine Hyaline Casts 17 /lpf (RARE) Urine Mucus FEW /lpf (OCC) Microscopic Urinalysis Comment CATH-CULTURE IND Test 10/19/16 10/19/16 10/19/16 10/20/16 14:02 17:25 18:15 00:33 Lactic Acid Level 3.7 mmol/L 3.2 mmol/L (0.4-2.0) (0.4-2.0) Blood Gas Puncture Site RT BRACHIAL Blood Gas Patient Temperature 98.6 Blood Gas HCO3 19 mmol/L (22-26) Blood Gas Base Excess -4.5 mmol/L (-2-2) Blood Gas Oxygen Saturation 89 % (90-100) Arterial Blood pH 7.47 (7.380-7.420) Arterial Blood Partial 26 mmHg (38-42) Pressure CO2 Arterial Blood Partial 63 mmHg Pressure O2 (61-120) Arterial Blood Oxygen Content 14.5 Vol % (12.0-20.0) Arterial Blood 1.7 % (0-4) Carboxyhemoglobin Arterial Blood Methemoglobin 1.3 % (0-2) Blood Gas Hemoglobin 11.7 G/DL (12.0-16.0) Oxygen Delivery Device NASAL CANNULA Blood Gas Liter Flow 4 L/M White Blood Count 8.0 TH/MM3 (4.0-11.0) Red Blood Count 3.27 MIL/MM3 (4.50-5.90) Hemoglobin 11.3 GM/DL (13.0-17.0) Hematocrit 34.3 % (39.0-51.0) Mean Corpuscular Volume 105.1 FL (80.0-100.0) Mean Corpuscular Hemoglobin 34.5 PG (27.0-34.0) Mean Corpuscular Hemoglobin 32.8 % Concent (32.0-36.0) Red Cell Distribution Width 22.1 % (11.6-17.2) Platelet Count 219 TH/MM3 (150-450) Mean Platelet Volume 8.4 FL (7.0-11.0) Neutrophils (%) (Auto) 90.2 % (16.0-70.0) Lymphocytes (%) (Auto) 1.6 % (9.0-44.0) Monocytes (%) (Auto) 8.1 % (0.0-8.0) Eosinophils (%) (Auto) 0.0 % (0.0-4.0) Basophils (%) (Auto) 0.1 % (0.0-2.0) Neutrophils # (Auto) 7.3 TH/MM3 (1.8-7.7) Lymphocytes # (Auto) 0.1 TH/MM3 (1.0-4.8) Monocytes # (Auto) 0.7 TH/MM3 (0-0.9) Eosinophils # (Auto) 0.0 TH/MM3 (0-0.4) Basophils # (Auto) 0.0 TH/MM3 (0-0.2) CBC Comment AUTO DIFF Differential Total Cells 100 Counted Neutrophils % (Manual) 87 % (16-70) Band Neutrophils % 10 % (0-6) Lymphocytes % 1 % (9-44) Monocytes % 1 % (0-8) Neutrophils # (Manual) 7.8 TH/MM3 (1.8-7.7) Metamyelocytes 1 % (0-1) Differential Comment FINAL DIFF MANUAL Platelet Estimate NORMAL (NORMAL) Platelet Morphology Comment NORMAL (NORMAL) Spherocytes 1+ (NORMAL) Ovalocytes 2+ (NORMAL) Sodium Level 144 MEQ/L (136-145) Potassium Level 3.8 MEQ/L (3.5-5.1) Chloride Level 111 MEQ/L (98-107) Carbon Dioxide Level 21.1 MEQ/L (21.0-32.0) Anion Gap 12 MEQ/L (5-15) Blood Urea Nitrogen 62 MG/DL (7-18) Creatinine 1.77 MG/DL (0.60-1.30) Estimat Glomerular Filtration 37 ML/MIN (>89) Rate Random Glucose 94 MG/DL (74-106) Calcium Level 8.2 MG/DL (8.5-10.1) Total Bilirubin 0.7 MG/DL (0.2-1.0) Aspartate Amino Transf 170 U/L (15-37) (AST/SGOT) Alanine Aminotransferase 86 U/L (12-78) (ALT/SGPT) Alkaline Phosphatase 135 U/L (45-117) Total Creatine Kinase 1166 U/L (39-308) Creatine Kinase MB 1.8 NG/ML (0.5-3.6) Creatine Kinase MB % 0.2 % (0.0-4.0) Troponin I 0.19 NG/ML 0.23 NG/ML (0.02-0.05) (0.02-0.05) Total Protein 6.3 GM/DL (6.4-8.2) Albumin 2.3 GM/DL (3.4-5.0) Test 10/20/16 10/20/16 10/21/16 10/21/16 06:38 12:17 03:12 10:26 White Blood Count 9.4 TH/MM3 10.5 TH/MM3 (4.0-11.0) (4.0-11.0) Red Blood Count 3.37 MIL/MM3 3.56 MIL/MM3 (4.50-5.90) (4.50-5.90) Hemoglobin 11.9 GM/DL 12.4 GM/DL (13.0-17.0) (13.0-17.0) Hematocrit 35.6 % 37.5 % (39.0-51.0) (39.0-51.0) Mean Corpuscular Volume 105.7 FL 105.5 FL (80.0-100.0) (80.0-100.0) Mean Corpuscular Hemoglobin 35.3 PG 34.9 PG (27.0-34.0) (27.0-34.0) Mean Corpuscular Hemoglobin 33.4 % 33.1 % Concent (32.0-36.0) (32.0-36.0) Red Cell Distribution Width 22.5 % 23.1 % (11.6-17.2) (11.6-17.2) Platelet Count 206 TH/MM3 216 TH/MM3 (150-450) (150-450) Mean Platelet Volume 8.4 FL 9.0 FL (7.0-11.0) (7.0-11.0) Neutrophils (%) (Auto) 93.6 % 86.9 % (16.0-70.0) (16.0-70.0) Lymphocytes (%) (Auto) 1.3 % 3.3 % (9.0-44.0) (9.0-44.0) Monocytes (%) (Auto) 4.8 % (0.0-8.0) 9.3 % (0.0-8.0) Eosinophils (%) (Auto) 0.0 % (0.0-4.0) 0.0 % (0.0-4.0) Basophils (%) (Auto) 0.3 % (0.0-2.0) 0.5 % (0.0-2.0) Neutrophils # (Auto) 8.8 TH/MM3 9.1 TH/MM3 (1.8-7.7) (1.8-7.7) Lymphocytes # (Auto) 0.1 TH/MM3 0.3 TH/MM3 (1.0-4.8) (1.0-4.8) Monocytes # (Auto) 0.4 TH/MM3 1.0 TH/MM3 (0-0.9) (0-0.9) Eosinophils # (Auto) 0.0 TH/MM3 0.0 TH/MM3 (0-0.4) (0-0.4) Basophils # (Auto) 0.0 TH/MM3 0.1 TH/MM3 (0-0.2) (0-0.2) CBC Comment AUTO DIFF AUTO DIFF Differential Total Cells 100 100 Counted Neutrophils % (Manual) 69 % (16-70) 82 % (16-70) Band Neutrophils % 25 % (0-6) 8 % (0-6) Monocytes % 1 % (0-8) 6 % (0-8) Neutrophils # (Manual) 9.3 TH/MM3 9.5 TH/MM3 (1.8-7.7) (1.8-7.7) Metamyelocytes 4 % (0-1) Myelocytes 1 % (0-0) Differential Comment FINAL DIFF FINAL DIFF MANUAL MANUAL Platelet Estimate NORMAL NORMAL (NORMAL) (NORMAL) Platelet Morphology Comment NORMAL NORMAL (NORMAL) (NORMAL) Ovalocytes 1+ (NORMAL) 1+ (NORMAL) Keratocytes OCC (NORMAL) Sodium Level 144 MEQ/L 148 MEQ/L (136-145) (136-145) Potassium Level 3.4 MEQ/L 4.4 MEQ/L (3.5-5.1) (3.5-5.1) Chloride Level 111 MEQ/L 116 MEQ/L (98-107) (98-107) Carbon Dioxide Level 20.6 MEQ/L 20.9 MEQ/L (21.0-32.0) (21.0-32.0) Anion Gap 12 MEQ/L (5-15) 11 MEQ/L (5-15) Blood Urea Nitrogen 50 MG/DL (7-18) 53 MG/DL (7-18) Creatinine 1.57 MG/DL 1.63 MG/DL (0.60-1.30) (0.60-1.30) Estimat Glomerular Filtration 42 ML/MIN (>89) 40 ML/MIN (>89) Rate Random Glucose 66 MG/DL 66 MG/DL (74-106) (74-106) Calcium Level 8.8 MG/DL 9.8 MG/DL (8.5-10.1) (8.5-10.1) Total Bilirubin 0.8 MG/DL 0.9 MG/DL (0.2-1.0) (0.2-1.0) Aspartate Amino Transf 165 U/L (15-37) 141 U/L (15-37) (AST/SGOT) Alanine Aminotransferase 83 U/L (12-78) 76 U/L (12-78) (ALT/SGPT) Alkaline Phosphatase 115 U/L 116 U/L (45-117) (45-117) Total Protein 6.4 GM/DL 6.5 GM/DL (6.4-8.2) (6.4-8.2) Albumin 2.3 GM/DL 2.1 GM/DL (3.4-5.0) (3.4-5.0) Troponin I 0.15 NG/ML (0.02-0.05) Blood Gas Puncture Site RT RADIAL Blood Gas Patient Temperature 98.6 Blood Gas HCO3 16 mmol/L (22-26) Blood Gas Base Excess -8.3 mmol/L (-2-2) Blood Gas Oxygen Saturation 91 % (90-100) Arterial Blood pH 7.40 (7.380-7.420) Arterial Blood Partial 26 mmHg (38-42) Pressure CO2 Arterial Blood Partial 72 mmHg Pressure O2 (61-120) Arterial Blood Oxygen Content 17.5 Vol % (12.0-20.0) Arterial Blood 1.5 % (0-4) Carboxyhemoglobin Arterial Blood Methemoglobin 1.1 % (0-2) Blood Gas Hemoglobin 13.6 G/DL (12.0-16.0) Oxygen Delivery Device BiPAP Blood Gas Ventilator Setting [id number]/[id number] Blood Gas Inspired Oxygen 35 % Lymphocytes % 4 % (9-44) Nucleated Red Blood Cells 1 /100 WBC (0-0) Acanthocytes 1+ (NORMAL) (FREDERICK YIN) Result Diagram: 10/21/16 1026 10/21/16 1026 Microbiology Microbiology Date/Time Procedure Status Source Growth 10/19/16 09:20 Aerobic Blood Culture - Preliminary Resulted Blood Peripheral NO GROWTH IN 2 DAYS 10/19/16 09:20 Anaerobic Blood Culture - Preliminary Resulted Blood Peripheral NO GROWTH IN 2 DAYS 10/19/16 09:25 Aerobic Blood Culture - Preliminary Resulted Blood Peripheral NO GROWTH IN 2 DAYS 10/19/16 09:25 Anaerobic Blood Culture - Preliminary Resulted Blood Peripheral NO GROWTH IN 2 DAYS 10/19/16 10:25 Urine Culture - Final Complete Urine Catheterized Urine NO GROWTH IN 48 HOURS. 10/19/16 10:25 Legionella Antigen - Final Complete Urine Catheterized Urine PRESUMPTIVE NEGATIVE FOR LEGIONELLA P... 10/19/16 10:25 Streptococcus pneumoniae Antigen (M - Final Complete Urine Catheterized Urine PRESUMPTIVE NEGATIVE FOR STREPTOCOCCU... 10/19/16 11:49 Gram Stain - Final Complete Sputum Expectorated Sputum 10/19/16 11:49 Sputum Culture - Final Complete Sputum Expectorated Sputum HEAVY GROWTH NORMAL RESPIRATORY ZEN Imaging Last Impressions Lung Scan-VQ Nuclear Medicine 10/20/16 0000 Signed Impressions: Service Date/Time: Thursday, October 20, 2016 13:22 - CONCLUSION: Bilateral ventilatory defects without evidence for PE. Yao Perez MD Chest X-Ray 10/19/16 1150 Signed Impressions: Service Date/Time: Wednesday, October 19, 2016 12:25 - CONCLUSION: Scattered interstitial densities could be interstitial edema or interstitial infiltrate. Dale Ba MD Hip and Pelvis X-Ray 10/19/16 09 Signed Impressions: Service Date/Time: Wednesday, October 19, 2016 09:40 - CONCLUSION: 1. No acute fracture or malalignment. 2. Osteopenia. The patient is status post right hip arthroplasty. Juan Melgar MD Hip X-Ray 10/19/16904 Signed Impressions: Service Date/Time: Wednesday, October 19, 2016 09:33 - CONCLUSION: 1. No acute fracture or malalignment. 2. That is post bilateral hip arthroplasty. Juan Melgar MD Knee X-Ray 10/19/16 0000 Signed Impressions: Service Date/Time: Wednesday, October 19, 2016 10:02 - CONCLUSION: 1. 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 2. Remote postsurgical changes. Juan Melgar MD ([facility]) Assessment and Plan Disease Oriented Problem List: (1) Sepsis (2) CHF (congestive heart failure) (3) SOB (shortness of breath) (4) Atrial fibrillation (5) Fall Symptom Scale: (1) SOB (shortness of breath) 0-10 Scale: Unable to quantify (2) Decreased appetite 0-10 Scale: Unable to quantify Comment: Eating small amounts of soft foods. (3) Weakness 0-10 Scale: Unable to quantify Comment: Bed to chair bound (4) Tachypnea 0-10 Scale: Unable to quantify Pertinent Non-Medical Issues Psychosocial: . 3 children. Spiritual: Anabaptist deann. Legal:Patient is incapacitated to make his own health care decisions. Living Will on file, does not designate a healthcare surrogate. According to [place] statutes, should he lose capacity, health care proxy decision-making would fall to his spouse. Ethical issues impacting care: no known concerns at this time. . Important Contacts * Narcisa Joe, : [phone] * Dhara Joe, daughter: [phone] or [phone] . Prognosis Mr. Dent is an 86-year-old male with severe COPD, coronary artery disease and multiple other comorbidities, given his age and comorbidities life expectancy is likely limited. He has had 8 emergency room visit/hospitalizations in 2016. This is his 2nd acute-care hospitalization in the past month. Overall prognosis poor. Hospice appropriate if goals are comfort oriented. . Code Status: No Code Plan * Patient is incapacitated to make his own health care decisions. Living Will on file, does not designate a healthcare surrogate. According to [place] statutes, should he lose capacity, health care proxy decision-making would fall to his spouse. * NO CODE [place] DNR signed on chart. * Family elects transition to comfort with Hospice support. Plan to transfer to [facility] when arrangements made. Family will plan withdrawal of BiPAP at care center after daughter arrives from [place] (later today). * Hospice consulted. Discussed with nurse, Jenn. Call to reserve bed at [facility] ( spoke with Jody), bed on hold. * SYMPTOMS: Dyspnea: labored respirations on BiPAP. Questionable morphine allergy per . Slight improvement with one dose of Ativan and Dilaudid. Weakness: given age, comorbidities including severe underlying COPD. Recent falls. Tachypnea: rate 20-30. Some improvement with meds. Additional orders per hospice attending. * Palliative care number provided. * Palliative care will continue to follow throughout hospital course to assist with symptom management and clarification of goals as needed. . (FREDERICK YIN) Attestation To help prompt me to consider important information that might be impacting today's encounter and assessment, information from prior notes written by myself or my colleagues may have been "brought forward" into today's note. My signature on this note, however, is an attestation that I personally performed the exam, history, and/or decision-making noted today, and, unless otherwise indicated, the interactions with patient, family, and staff as well as the review of records all occurred today. I also attest that the listed assessment and stated plan reflect my best clinical judgment today based on the combination of historical information, prior notes, and today's exam/ interactions. When time spent is documented, it refers only to time spent today by the signer, or if indicated, combined time spent today by collaborating physician/nurse practitioner. (FREDERICK YIN) Collaborating MD Comments d/w with harsha. Agree with assessment and plan (Bhavin Johns MD) FREDERICK YIN Oct 21, 2016 12:53 Bhavin Johns MD November 24, 2016 11:38
--- NOTE | 2016-11-06 10:28 | HHI.DS ---
Summary Note Date of : Oct 21, 2016 Time Of : 1522 Admission Date Oct 20, 2016 at 09:31 Admitting Diagnosis sepsis, dehydration, lactic acidosis Diagnosis at Time of : (1) COPD exacerbation ICD Code: J44.1 (2) Respiratory distress ICD Code: R06.00 Imaging Last Impressions Lung Scan-VQ Nuclear Medicine 10/20/16 0000 Signed Impressions: Service Date/Time: Thursday, October 20, 2016 13:22 - CONCLUSION: Bilateral ventilatory defects without evidence for PE. Yao Perez MD Chest X-Ray 10/19/16 1150 Signed Impressions: Service Date/Time: Wednesday, October 19, 2016 12:25 - CONCLUSION: Scattered interstitial densities could be interstitial edema or interstitial infiltrate. Dale Ba MD Hip and Pelvis X-Ray 10/19/16 0905 Signed Impressions: Service Date/Time: Wednesday, October 19, 2016 09:40 - CONCLUSION: 1. No acute fracture or malalignment. 2. Osteopenia. The patient is status post right hip arthroplasty. Juan Melgar MD Hip X-Ray 10/19/16 09 Signed Impressions: Service Date/Time: Wednesday, October 19, 2016 09:33 - CONCLUSION: 1. No acute fracture or malalignment. 2. That is post bilateral hip arthroplasty. Juan Melgar MD Knee X-Ray 10/19/16 0000 Signed Impressions: Service Date/Time: Wednesday, October 19, 2016 10:02 - CONCLUSION: 1. 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 2. Remote postsurgical changes. MD Kashif Dias Lauren MD November 06, 2016 10:28
== END 2016-10-21 21:37 | disposition expired | DRG 871 ==
LOC: NEPE 08:41 → INTOOBSV 11:08 → NEDH 11:08 → HOCB 16:36 → OBSVTOIN 10-20 09:31
PROVIDERS: ADMIT Family Medicine; ATTEND Family Medicine
PROC: 5A09357 Assistance with Respiratory Ventilation, Less than 24 Consecutive Hours, Continuous Positive Airway Pressure (ICD-10-PCS; principal; 2016-10-21)
DX: A41.9 Sepsis, unspecified organism (principal); J69.0 Pneumonitis due to inhalation of food and vomit; N17.9 Acute kidney failure, unspecified; J96.11 Chronic respiratory failure with hypoxia; E87.2 Acidosis; I50.9 Heart failure, unspecified; I48.91 Unspecified atrial fibrillation; R13.10 Dysphagia, unspecified; E86.0 Dehydration; Z99.81 Dependence on supplemental oxygen; I10 Essential (primary) hypertension; J44.9 Chronic obstructive pulmonary disease, unspecified; L89.891 Pressure ulcer of other site, stage 1; E78.00 Pure hypercholesterolemia, unspecified; I25.10 Atherosclerotic heart disease of native coronary artery without angina pectoris; M06.9 Rheumatoid arthritis, unspecified; Z86.73 Personal history of transient ischemic attack (TIA), and cerebral infarction without residual deficits; Z95.1 Presence of aortocoronary bypass graft; Z88.6 Allergy status to analgesic agent; Z88.5 Allergy status to narcotic agent; Z88.0 Allergy status to penicillin; Z88.7 Allergy status to serum and vaccine; Z88.8 Allergy status to other drugs, medicaments and biological substances; R00.0 Tachycardia, unspecified; Z96.643 Presence of artificial hip joint, bilateral; E78.5 Hyperlipidemia, unspecified; Z87.891 Personal history of nicotine dependence; W01.0XXA Fall on same level from slipping, tripping and stumbling without subsequent striking against object, initial encounter; Y93.01 Activity, walking, marching and hiking; Y92.099 Unspecified place in other non-institutional residence as the place of occurrence of the external cause; Y99.9 Unspecified external cause status; S80.811A Abrasion, right lower leg, initial encounter; Z80.1 Family history of malignant neoplasm of trachea, bronchus and lung; Z80.8 Family history of malignant neoplasm of other organs or systems; Z82.49 Family history of ischemic heart disease and other diseases of the circulatory system; Z51.5 Encounter for palliative care; Z66 Do not resuscitate; Z87.01 Personal history of pneumonia (recurrent); M54.5 Low back pain; Y95 Nosocomial condition; R06.82 Tachypnea, not elsewhere classified
CPT/HCPCS: 36600; 71010; 71020; 73502; 73564; 78582; 80053; 81001; 82550; 82552; 82805; 83605; 83690; 83880; 84484; 85007; 85027; 85610; 85730; 86403; 87040; 87070; 87086; 87205; 87449; 93005; 94002; 94150; 94640; 94664; 94667; 94668; 96365; A9540; A9567; G0378; G8987-GP; G8988-GP; G8996-GN; G8997-GN; G8998-GN; J0131; J1170; J1940; J2060; J3370; J3480; J7030; J7050; J7512; J7613; J8610; P9612